=== PATIENT | male | born 1935 | race Hispanic/Latino ===

== ENCOUNTER 2018-09-13 20:25 | Emergency (ER) | payer SELFPAY ==
[2018-09-13 21:12] LABS: Protime INR 1.05
[2018-09-13 21:13] LABS: Absolute Lymphocytes (CBC) 1.5 K/uL (0.7-4.9); Hematocrit 41.5 % (39.6-49.0); Lymphocytes % 20.3 % (15.3-44.8); MPV 9.4 fL (7.6-11.3); RBC Red Blood Cell Count 4.65 M/uL (4.33-5.43)
[2018-09-13 21:28] LABS: ALT/SGPT 24 U/L (12-78); AST/SGOT 20 U/L (15-37); Albumin 3.8 g/dL (3.4-5.0); Alkaline Phosphatase 73 U/L (45-117); BUN Blood Urea Nitrogen 16 mg/dL (7-18); Bicarbonate 27 mmol/L (21-32); Bilirubin Direct 0.2 mg/dL (0-0.2); Bilirubin Total 0.6 mg/dL (0.2-1.0); Glucose Level 110 mg/dL (74-106); Magnesium 2.2 mg/dL (1.8-2.4); NT PRO-BNP 285 pg/mL (<450); Potassium 4.2 mmol/L (3.5-5.1); Protein, Total 7.5 g/dL (6.4-8.2); Sodium Level 142 mmol/L (136-145); Troponin (Emerg Dept Use Only) < 0.02 ng/mL (0.0-0.045)
[2018-09-13] MEDS ORDERED: HYDRALAZINE HCL 20 MG/ML VIAL ONE (22:16)
--- NOTE | 2018-09-13 22:52 | ER ---
Nurse's Notes [facility] Name: Moy White Age: 82 yrs Sex: Male : 1935 Arrival Date: 09/13/2018 Time: 20:25 Bed 4 Private MD: Diagnosis: Pneumonia due to other specified bacteria;Atrial fibrillation and flutter;Essential (primary) hypertension Presentation: 09/13 20:27 Presenting complaint: EMS states: called out for right lower back pain. EMS gave zofran tl2 and fentanyl, pt c/o chest pain after medication and presented with a flutter on monitor. Pt is AOx4. Transition of care: patient was not received from another setting of care. Onset of symptoms was September 13, 2018. Risk Assessment: Do you want to hurt yourself or someone else? Patient reports no desire to harm self or others. Initial Sepsis Screen: Does the patient meet any 2 criteria? No. Patient's initial sepsis screen is negative. Does the patient have a suspected source of infection? No. Patient's initial sepsis screen is negative. Care prior to arrival: Medication(s) given: zofran 4 mg, fentanyl IV initiated. 18 GA, in the right forearm. 20:27 Method Of Arrival: EMS: [facility] tl2 20:27 Acuity: MARIAN 3 tl2 Triage Assessment: 20:28 General: Appears in no apparent distress. uncomfortable, Behavior is calm, cooperative, tl2 appropriate for age. Pain: Complains of pain in chest, right lower back Pain does not radiate. Neuro: Level of Consciousness is awake, alert, obeys commands, Oriented to person, place, time, situation. Cardiovascular: Chest pain. Respiratory: Airway is patent Respiratory effort is even, unlabored, Respiratory pattern is regular, symmetrical. Musculoskeletal: Circulation, motion, and sensation intact. Reports pain in right lower back. Historical: - Allergies: 20:28 No Known Allergies; tl2 - Home Meds: 20:28 None [Active]; tl2 - PMHx: 20:28 None; tl2 - Immunization history:: Adult Immunizations up to date. - Social history:: Smoking status: Patient/guardian denies using tobacco. - Ebola Screening: : No symptoms or risks identified at this time. Screenin:30 Abuse screen: Denies threats or abuse. Nutritional screening: No deficits noted. tl2 Tuberculosis screening: No symptoms or risk factors identified. Fall Risk IV access (20 points). Assessment: 20:28 General: see triage assessment. tl2 21:22 Reassessment: Patient appears in no apparent distress at this time. Patient and/or tl2 family updated on plan of care and expected duration. Pain level reassessed. Patient is alert, oriented x 3, equal unlabored respirations, skin warm/dry/pink. 22:39 Reassessment: Patient appears in no apparent distress at this time. Patient and/or tl2 family updated on plan of care and expected duration. Pain level reassessed. Patient is alert, oriented x 3, equal unlabored respirations, skin warm/dry/pink. Vital Signs: 20:28 BP 181 / 103; Pulse 69; Resp 18; Temp 98.3(O); Pulse Ox 95% on R/A; Weight 77.11 kg; tl2 Height 5 ft. 6 in. (167.64 cm); Pain 5/10; 21:02 BP 182 / 99; Pulse 70; Resp 15; Pulse Ox 95% on R/A; tl2 22:39 BP 161 / 90; Pulse 77; Resp 23; Pulse Ox 95% on R/A; tl2 23:08 BP 150 / 81; Pulse 76; Resp 17; Temp 98; Pulse Ox 96% on R/A; rv 20:28 Body Mass Index 27.44 (77.11 kg, 167.64 cm) tl2 Vitals: 20:36 Cardiac Rhythm Assessment Sinus rhythm W/unifocal PVC's. tl2 21:02 Cardiac Rhythm Assessment Sinus rhythm W/unifocal PVC's. tl2 ED Course: 20:25 Patient arrived in ED. fc 20:27 Derek Suresh PA is PHCP. jr8 20:27 Abelardo Benavidez MD is Attending Physician. jr8 20:28 Triage completed. tl2 20:28 Arm band placed on right wrist. tl2 20:30 Patient has correct armband on for positive identification. Bed in low position. Call tl2 light in reach. Side rails up X 1. 20:30 Maintain EMS IV. Dressing intact. Good blood return noted. Site clean \T\ dry. Gauge \T\ tl 2 site: 18 g R FA. 20:45 XRAY Chest (1 view) In Process Unspecified. EDMS 21:02 Kemi Chavarria, RN is Primary Nurse. tl2 22:51 Sanjay Cotter MD is Referral Physician. jr8 22:51 Chester Dinh MD is Referral Physician. jr8 23:39 No provider procedures requiring assistance completed. IV discontinued, intact, rv bleeding controlled, No redness/swelling at site. Pressure dressing applied. Administered Medications: 22:25 Drug: hydrALAZINE 10 mg Route: IV; Rate: calculated rate; Site: right forearm; tl2 23:39 Follow up: Response: Blood pressure is lowered; IV Status: Completed infusion rv 23:08 Drug: fentaNYL (PF) 50 mcg Route: IVP; Site: right forearm; rv 23:39 Follow up: Response: Medication administered at discharge. rv Outcome: 22:51 Discharge ordered by . jr8 23:39 Discharged to home via wheelchair, with family. rv 23:39 Condition: improved 23:39 Discharge instructions given to patient, family, Instructed on discharge instructions, follow up and referral plans. 23:39 Instructed on medication usage, Demonstrated understanding of instructions, follow-up care, medications, Prescriptions given X 4. 23:40 Patient left the ED. rv Signatures: Dispatcher [employer] EDMD Autumn Lala RN RN Derek Howell PA PA jr8 Kemi Chavarria RN RN tl2 Rigoberto Tran RN RN rv Corrections: (The following items were deleted from the chart) 20:32 20:28 BP 181 / 103; Pulse 69bpm; Resp 18bpm; Pulse Ox 95% RA; 77.11 kg; Height 5 ft. 6 tl2 in.; BMI: 27.4; Pain 5/10; tl2
--- NOTE | 2018-09-13 22:52 | EDPHYS ---
Physician Documentation [facility] Name: Moy White Age: 82 yrs Sex: Male : 1935 Arrival Date: 09/13/2018 Time: 20:25 Bed 4 Private MD: ED Physician Abelardo Benavidez HPI: 09/13 21:30 This 82 yrs old Male presents to ER via EMS with complaints of Back Pain. jr8 21:30 The patient presents with pain that is acute, with no known mechanism of injury. The jr8 symptoms are located in the low back. Onset: The symptoms/episode began/occurred acutely, 2 day(s) ago. The pain does not radiate. Associated signs and symptoms: The patient has no apparent associated signs or symptoms. The problem was sustained from unknown cause. Modifying factors: The patient symptoms are alleviated by nothing, the patient symptoms are aggravated by any movement, bending. Severity of symptoms: At their worst the symptoms were moderate, in the emergency department the symptoms are unchanged. The patient has not experienced similar symptoms in the past. The patient has not recently seen a physician. Patient was brought in by EMS for low back pain. While during course of treatment and evaluation by EMS they noted that patient would have periodic atrial flutter. Patient also HTN. History of HTN but currently not medicated. Denies any other history. Patient only complains of right low back pain. Thinks he may have injured it but does not remember how . Historical: - Allergies: 20:28 No Known Allergies; tl2 - Home Meds: 20:28 None [Active]; tl2 - PMHx: 20:28 None; tl2 - Immunization history:: Adult Immunizations up to date. - Social history:: Smoking status: Patient/guardian denies using tobacco. - Ebola Screening: : No symptoms or risks identified at this time. ROS: 21:30 Eyes: Negative for injury, pain, redness, and discharge, ENT: Negative for injury, jr8 pain, and discharge, Neck: Negative for injury, pain, and swelling, Cardiovascular: Negative for chest pain, palpitations, and edema, Respiratory: Negative for shortness of breath, cough, wheezing, and pleuritic chest pain, Abdomen/GI: Negative for abdominal pain, nausea, vomiting, diarrhea, and constipation, MS/Extremity: Negative for injury and deformity, Skin: Negative for injury, rash, and discoloration, Neuro: Negative for headache, weakness, numbness, tingling, and seizure. 21:30 Back: Positive for pain at rest, pain with movement, of the right low back. Exam: 21:30 Eyes: Pupils equal round and reactive to light, extra-ocular motions intact. Lids and jr8 lashes normal. Conjunctiva and sclera are non-icteric and not injected. Cornea within normal limits. Periorbital areas with no swelling, redness, or edema. ENT: Nares patent. No nasal discharge, no septal abnormalities noted. Tympanic membranes are normal and external auditory canals are clear. Oropharynx with no redness, swelling, or masses, exudates, or evidence of obstruction, uvula midline. Mucous membranes moist. Neck: Trachea midline, no thyromegaly or masses palpated, and no cervical lymphadenopathy. Supple, full range of motion without nuchal rigidity, or vertebral point tenderness. No Meningismus. Cardiovascular: Regular rate and rhythm with a normal S1 and S2. No gallops, murmurs, or rubs. Normal PMI, no JVD. No pulse deficits. Respiratory: Lungs have equal breath sounds bilaterally, clear to auscultation and percussion. No rales, rhonchi or wheezes noted. No increased work of breathing, no retractions or nasal flaring. Abdomen/GI: Soft, non-tender, with normal bowel sounds. No distension or tympany. No guarding or rebound. No evidence of tenderness throughout. Skin: Warm, dry with normal turgor. Normal color with no rashes, no lesions, and no evidence of cellulitis. MS/ Extremity: Pulses equal, no cyanosis. Neurovascular intact. Full, normal range of motion. Neuro: Awake and alert, GCS 15, oriented to person, place, time, and situation. Cranial nerves II-XII grossly intact. Motor strength 5/5 in all extremities. Sensory grossly intact. Cerebellar exam normal. Normal gait. 21:30 Back: pain, that is moderate, of the right low back, ROM is painful, with all movement, normal spinal alignment noted, CVA tenderness, is absent, vertebral tenderness, is not appreciated. Vital Signs: 20:28 BP 181 / 103; Pulse 69; Resp 18; Temp 98.3(O); Pulse Ox 95% on R/A; Weight 77.11 kg; tl2 Height 5 ft. 6 in. (167.64 cm); Pain 5/10; 21:02 BP 182 / 99; Pulse 70; Resp 15; Pulse Ox 95% on R/A; tl2 22:39 BP 161 / 90; Pulse 77; Resp 23; Pulse Ox 95% on R/A; tl2 23:08 BP 150 / 81; Pulse 76; Resp 17; Temp 98; Pulse Ox 96% on R/A; rv 20:28 Body Mass Index 27.44 (77.11 kg, 167.64 cm) tl2 MDM: 20:27 Patient medically screened. jr8 22:36 Data reviewed: vital signs, nurses notes, lab test result(s), EKG, radiologic studies, jr8 plain films, and as a result, I will discharge patient. Data interpreted: Pulse oximetry: on room air is 95 %. Interpretation: normal. 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 ED course: No acute findings on labs. Mild infiltrate on CXR. Will treat for pneumonia. Recommended f/u CXR to insure resolving. If not needs CT to r/o mass from smoking history. Will start patient on aspirin, metoprolol for episodic atrial flutter. Recommend f/u with both FM and Cardiology. If worse to come back. Will also treat back pain that he originally came in for . 22:48 Test interpretation: by ED physician or midlevel provider: plain radiologic studies, jr8 Right lower lobe infiltrate noted on CXR. 09/13 20:26 Order name: Basic Metabolic Panel; Complete Time: 21:32 09/13 20:26 Order name: CBC with Diff; Complete Time: 21:18 09/13 20:26 Order name: LFT's; Complete Time: 21:32 09/13 20:26 Order name: Magnesium; Complete Time: 21:32 09/13 20:26 Order name: NT PRO-BNP; Complete Time: 21:32 09/13 20:26 Order name: PT-INR; Complete Time: 21:18 09/13 20:26 Order name: Troponin (emerg Dept Use Only); Complete Time: 21:32 09/13 20:26 Order name: XRAY Chest (1 view) 09/13 20:26 Order name: EKG; Complete Time: 20:27 09/13 20:26 Order name: Cardiac monitoring; Complete Time: 20:32 09/13 20:26 Order name: EKG - Nurse/Tech; Complete Time: 20:32 09/13 20:26 Order name: IV Saline Lock; Complete Time: 20:32 09/13 20:26 Order name: Labs collected and sent; Complete Time: 20:41 09/13 20:26 Order name: O2 Per Protocol; Complete Time: 20:32 09/13 20:26 Order name: O2 Sat Monitoring; Complete Time: 20:32 Administered Medications: 22:25 Drug: hydrALAZINE 10 mg Route: IV; Rate: calculated rate; Site: right forearm; tl2 23:39 Follow up: Response: Blood pressure is lowered; IV Status: Completed infusion rv 23:08 Drug: fentaNYL (PF) 50 mcg Route: IVP; Site: right forearm; rv 23:39 Follow up: Response: Medication administered at discharge. rv Disposition: 09/13/18 22:51 Discharged to Home. Impression: Pneumonia due to other specified bacteria, Atrial fibrillation and flutter, Essential (primary) hypertension. - Condition is Stable. - Discharge Instructions: Atrial Fibrillation, Hypertension, Community-Acquired Pneumonia, Adult. - Prescriptions for Mobic 7.5 mg Oral Tablet - take 1 tablet by ORAL route once daily take with food; 20 tablet. Robaxin 500 mg Oral Tablet - take 2 tablet by ORAL route every 6 hours As needed; 40 tablet. Metoprolol Tartrate 25 mg Oral Tablet - take 1 tablet by ORAL route 2 times per day with a meal; 20 tablet. Zithromax Z- Xiang 250 mg Oral Tablet - take 1 tablet by ORAL route as directed for 5 days Day 1 - take two (2) tablets one time. Day 2, 3, 4 , 5 take one (1) tablet once daily.; 6 tablet. - Medication Reconciliation Form, Thank You Letter, Antibiotic Education, Prescription Opioid Use form. - Follow up: Sanjay Cotter MD; When: 1 - 2 days; Reason: Recheck today's complaints, Continuance of care, Re-evaluation by your physician. Follow up: Chester Dinh MD; When: 1 - 2 days; Reason: Recheck today's complaints, Continuance of care, Re-evaluation by your physician. - Problem is new. - Symptoms have improved. - Notes: Daily aspirin 81 mg Addendum: 09/15/2018 09:23 Co-signature as Attending Physician, Abelardo Benavidez MD I agree with the assessment and c tony plan of care. Signatures: Dispatcher [employer] EDUT Abelardo Benavidez MD MD cha Chretien, Felicia, RN RN fc Derek Suresh PA PA jr8 Kemi Chavarria RN RN tl2 Rigoberto Tran RN RN rv Corrections: (The following items were deleted from the chart) 09/13 22:49 22:36 ED course: No acute findings on labs or imaging. Will start patient on aspirin, jr8 metoprolol for episodic atrial flutter. Recommend f/u with both FM and Cardiology. If worse to come back. Will also treat back pain that he originally came in for . jr8 23:40 22:51 09/13/2018 22:51 Discharged to Home. Impression: Pneumonia due to other specified rv bacteria; Atrial fibrillation and flutter; Essential (primary) hypertension. Condition is Stable. Forms are Medication Reconciliation Form, Thank You Letter, Antibiotic Education, Prescription Opioid Use. Follow up: Sanjay Cotter; When: 1 - 2 days; Reason: Recheck today's complaints, Continuance of care, Re-evaluation by your physician. Follow up: Chester Dinh; When: 1 - 2 days; Reason: Recheck today's complaints, Continuance of care, Re-evaluation by your physician. Problem is new. Symptoms have improved. jr8
[2018-09-13] MEDS ORDERED: FENTANYL CITR 100 MCG/2 ML ONE (22:58)
--- NOTE | 2018-09-14 12:41 | RAD REPORT ---
EXAM DESCRIPTION: RAD - Chest Single View - 09/13/2018 8:49 pm CLINICAL HISTORY: Chest pain COMPARISON: None. TECHNIQUE: AP portable chest image was obtained 3 hours . FINDINGS: Lung volumes are low. Right base opacification is present partially obscuring the right he midiaphragm. Pneumonia and atelectasis can have this appearance. Correlation is needed with any right base pneumonia findings. Stranding in the medial left lung base is more likely atelectasis than pneu monia. No failure or volume overload. Heart and vasculature are normal. No pneumothorax. A minimal right ple ural effusion could be masked. No acute bony abnormality seen. No acute aortic findings suspected. IMPRESSION: Shallow inspiration film showing pneumonia or possible atelectasis change to the right l tiffanie base. Medial left base stranding is favored to be atelectasis rather than early pneumonia.
--- NOTE | 2018-09-15 07:46 | EKG ---
Test Date: 2018-09-13 Test Time: 20:22:24 Brake Lining Finisher: HUSSAIN MEASUREMENT RESULTS: Intervals: Rate: 82 CA: 168 QRSD: 84 QT: 376 QTc: 439 [place]: P: 47 CA: 168 QRS: 5 T: 28 INTERPRETIVE STATEMENTS: Sinus rhythm with occasional premature ventricular complexes Otherwise normal ECG No previous ECG available for comparison Electronically Signed On 09-15-18 07:45:08 CDT by Sanjay Cotter
== END 2018-09-13 23:40 | disposition home or self-care (01) ==
LOC: ER 20:25
DX: J15.8 Pneumonia due to other specified bacteria (principal); I10 Essential (primary) hypertension; I48.91 Unspecified atrial fibrillation; I48.92 Unspecified atrial flutter
CPT/HCPCS: 36415; 71045; 80048; 80076; 83735; 83880; 84484; 85025; 85610; 93005; 96365; 96375; 99284; J0360; J3010

== ENCOUNTER 2019-01-25 14:54 | Inpatient (IN) | payer OTHER, SELFPAY ==
--- OUTSIDE RECORDS SUMMARY | 2019-01-25 14:57 | XMS REPORT ---
:1935 [facility] Address [address] [place] [address] Dr. Crocker [address] [place] [id number] Care Team Providers Name Role Phone Unavailable Unavailable Unavailable Problems This patient has no known problems. Allergies, Adverse Reactions, Alerts This patient has no known allergies or adverse reactions. Medications This patient has no known medications.
--- NOTE | 2019-01-25 16:00 | RAD REPORT ---
EXAM DESCRIPTION: CT - Head Brain Wo Cont - 01/25/2019 3:28 pm CLINICAL HISTORY: Hypertension, dizziness COMPARISON: None. TECHNIQUE: Axial 5 mm thick images of the head were obtained without IV contrast. All CT scans are performed using dose optimization technique as appropriate and may include automated exposure control or mA/KV adjustment according to patient size. FINDINGS: No intracranial hemorrhage, mass, edema or shift of mid-line structures. No definitive inf arction changes are present. There is some heterogeneity in the medial aspect of the right occipital lobe. This is not definitive for infarction but can be correlated with any visual field defects on ph ysical exam. Patient has underlying mild to moderate atrophy and chronic ischemic change. No abnormal extra-axial fluid collections. Ventricles are in proportion to volume loss. Mastoid air cells and visualized portions of the paranasal sinuses are clear. No acute bony findings. IMPRESSION: No intracranial hemorrhage, mass or edema. Hypodensity in the medial right occipital lobe is not definitive for infarction but can be correlated with any visual field defect on physical exam. Underlying atrophy and chronic ischemic change. Ventricles are in proportion. Follow-up MR imaging could be performed if there are additional findings suggesting acute ischemic ev ent.
[2019-01-25 16:01] LABS: Absolute Lymphocytes (CBC) 1.2 K/uL (0.7-4.9); Basophils % 0.8 % (0-1.3); Hematocrit 35.2 % (39.6-49.0); Lymphocytes % 14.9 % (15.3-44.8); MPV 8.2 fL (7.6-11.3); Protime INR 1.06; RBC Red Blood Cell Count 4.11 M/uL (4.33-5.43)
[2019-01-25 16:16] LABS: ALT/SGPT 27 U/L (12-78); AST/SGOT 35 U/L (15-37); Albumin 3.7 g/dL (3.4-5.0); Alkaline Phosphatase 81 U/L (45-117); BUN Blood Urea Nitrogen 21 mg/dL (7-18); Bicarbonate 27 mmol/L (21-32); Bilirubin Direct 0.1 mg/dL (0-0.2); Bilirubin Total 0.4 mg/dL (0.2-1.0); Glucose Level 110 mg/dL (74-106); Magnesium 2.3 mg/dL (1.8-2.4); NT PRO-BNP 205 pg/mL (<450); Potassium 3.8 mmol/L (3.5-5.1); Protein, Total 7.4 g/dL (6.4-8.2); Sodium Level 142 mmol/L (136-145); Troponin (Emerg Dept Use Only) < 0.02 ng/mL (0.0-0.045)
--- NOTE | 2019-01-25 16:22 | EDPHYS ---
Physician Documentation [facility] Name: Moy White Age: 83 yrs Sex: Male : 1935 Arrival Date: 01/25/2019 Time: 14:57 Bed 5 Private MD: ED Physician Abelardo Benavidez HPI: 01/25 16:00 This 83 yrs old Male presents to ER via Ambulatory with complaints of jr8 Dizziness, Blurred Vision. 16:00 The patient presents with dizziness, feeling off balance. Onset: The symptoms/episode jr8 began/occurred acutely, today. Context: occurred at home. Modifying factors: The symptoms are alleviated by nothing, the symptoms are aggravated by standing up. Associated signs and symptoms: Pertinent positives: blurred vision. Severity of symptoms: At their worst the symptoms were moderate in the emergency department the symptoms have improved moderately. Patient's baseline: Neuro: alert and fully oriented, Motor: no deficits, Ambulation: walks without assistance, Speech: normal. The patient has experienced a previous episode. The patient has not recently seen a physician. Historical: - Allergies: 15:10 No Known Allergies; jl7 - Home Meds: 15:28 aspirin 81 mg Oral chew once daily [Active]; clonidine HCl 0.1 mg Oral tab as needed aa5 for systolic BP >180 [Active]; triamterene-hydrochlorothiazid 37.5-25 mg Oral tab once daily [Active]; amlodipine 10 mg tab once daily [Active]; - PMHx: 15:10 Hypertension; jl7 - Immunization history:: Adult Immunizations unknown. - Social history:: Smoking status: Patient/guardian denies using tobacco. - Ebola Screening: : No symptoms or risks identified at this time. ROS: 16:00 Eyes: Negative for injury, pain, redness, and discharge, ENT: Negative for injury, jr8 pain, and discharge, Neck: Negative for injury, pain, and swelling, Cardiovascular: Negative for chest pain, palpitations, and edema, Respiratory: Negative for shortness of breath, cough, wheezing, and pleuritic chest pain, Abdomen/GI: Negative for abdominal pain, nausea, vomiting, diarrhea, and constipation, Back: Negative for injury and pain, MS/Extremity: Negative for injury and deformity, Skin: Negative for injury, rash, and discoloration. 16:00 Neuro: Positive for dizziness, visual changes. Exam: 16:00 Eyes: Pupils equal round and reactive to light, extra-ocular motions intact. Lids and jr8 lashes normal. Conjunctiva and sclera are non-icteric and not injected. Cornea within normal limits. Periorbital areas with no swelling, redness, or edema. ENT: Nares patent. No nasal discharge, no septal abnormalities noted. Tympanic membranes are normal and external auditory canals are clear. Oropharynx with no redness, swelling, or masses, exudates, or evidence of obstruction, uvula midline. Mucous membranes moist. Neck: Trachea midline, no thyromegaly or masses palpated, and no cervical lymphadenopathy. Supple, full range of motion without nuchal rigidity, or vertebral point tenderness. No Meningismus. Cardiovascular: Regular rate and rhythm with a normal S1 and S2. No gallops, murmurs, or rubs. Normal PMI, no JVD. No pulse deficits. Respiratory: Lungs have equal breath sounds bilaterally, clear to auscultation and percussion. No rales, rhonchi or wheezes noted. No increased work of breathing, no retractions or nasal flaring. Abdomen/GI: Soft, non-tender, with normal bowel sounds. No distension or tympany. No guarding or rebound. No evidence of tenderness throughout. Back: No spinal tenderness. No costovertebral tenderness. Full range of motion. Skin: Warm, dry with normal turgor. Normal color with no rashes, no lesions, and no evidence of cellulitis. MS/ Extremity: Pulses equal, no cyanosis. Neurovascular intact. Full, normal range of motion. Neuro: Awake and alert, GCS 15, oriented to person, place, time, and situation. Cranial nerves II-XII grossly intact. Motor strength 5/5 in all extremities. Sensory grossly intact. Cerebellar exam normal. Normal gait. Vital Signs: 15:10 BP 131 / 70; Pulse 58; Resp 19 S; Temp 98.2(O); Pulse Ox 97% on R/A; Weight 65.77 kg jl7 (R); Pain 2/10; 15:50 BP 136 / 75; Pulse 59; Resp 16 S; Pulse Ox 98% on R/A; aa5 16:15 BP 135 / 75; Pulse 56; Resp 16 S; Pulse Ox 98% on R/A; aa5 17:30 BP 153 / 75; Pulse 74; Resp 18 S; Temp 98.0(TE); Pulse Ox 97% on R/A; aa5 18:45 BP 136 / 71; Pulse 65; Resp 16 S; Pulse Ox 96% on R/A; aa5 19:42 BP 136 / 71; Pulse 62; Resp 17; Temp 97.7(TE); Pulse Ox 98% on R/A; ea NIH Stroke Scale Scores: 15:20 NIHSS Score: 0 aa5 16:00 NIHSS Score: 0 [facility] MDM: 15:13 Patient medically screened. [facility] 16:16 Data reviewed: vital signs, nurses notes, lab test result(s), EKG, radiologic studies, jr8 CT scan, plain films. Data interpreted: Pulse oximetry: on room air is 97 %. Interpretation: normal. Counseling: I had a detailed discussion with the patient and/or guardian regarding: the historical points, exam findings, and any diagnostic results supporting the discharge/admit diagnosis, lab results, radiology results, the need for further work-up and treatment in the hospital. 16:16 ED course: Spoke with Dr. Frankel. Will be happy to see patient in the AM and have MRI jr8 done tomorrow to further evaluate nondescript right occipital lesion . 01/25 15:13 Order name: Basic Metabolic Panel; Complete Time: 16:17 8 01/25 15:13 Order name: CBC with Diff; Complete Time: 16:17 8 01/25 15:13 Order name: LFT's; Complete Time: 16:17 8 01/25 15:13 Order name: Magnesium; Complete Time: 16:17 jr8 01/25 15:13 Order name: NT PRO-BNP; Complete Time: 16:17 8 01/25 15:13 Order name: PT-INR; Complete Time: 16:16 jr8 01/25 15:13 Order name: Troponin (emerg Dept Use Only); Complete Time: 16:17 jr8 01/25 15:13 Order name: XRAY Chest (1 view); Complete Time: 16:35 8 01/25 15:35 Order name: Glucose, Ancillary Testing; Complete Time: 16:00 EDMS 01/25 16:57 Order name: Lipid Profile EDMA 01/25 16:57 Order name: Lipid Profile EDMA 01/25 16:59 Order name: Basic Metabolic Panel EDMA 01/25 18:03 Order name: Urine Dipstick--Ancillary (enter results) em1 01/25 20:11 Order name: Urine Dipstick-Ancillary; Complete Time: 20:14 EDMA 01/25 15:13 Order name: EKG; Complete Time: 15:15 [facility] 01/25 15:13 Order name: Cardiac monitoring; Complete Time: 16:02 [facility] 01/25 15:13 Order name: EKG - Nurse/Tech; Complete Time: 16:02 [facility] 01/25 15:13 Order name: IV Saline Lock; Complete Time: 16:02 [facility] 01/25 15:13 Order name: Labs collected and sent; Complete Time: 16:02 [facility] 01/25 15:13 Order name: O2 Per Protocol; Complete Time: 16:02 [facility] 01/25 15:13 Order name: O2 Sat Monitoring; Complete Time: 16:02 [facility] 01/25 15:13 Order name: CT Head Brain wo Cont; Complete Time: 16:07 [facility] 01/25 16:36 Order name: Diet Heart Healthy; Complete Time: 16:36 iw 01/25 16:57 Order name: Echo with Doppler EDMA 01/25 16:58 Order name: Carotid Artery Bilateral EDMA 01/25 16:58 Order name: Brain With Cont EDMA 01/25 17:05 Order name: Urine Dipstick-Ancillary (obtain specimen); Complete Time: 17:47 [facility] 01/25 17:36 Order name: Swallow Screen: VO received at 1625; Complete Time: 17:36 aa5 Administered Medications: 16:26 Drug: Aspirin 81 mg Route: PO; aa5 17:30 Follow up: Response: No adverse reaction aa5 16:26 Drug: PlaVIX 75 mg Route: PO; aa5 17:30 Follow up: Response: No adverse reaction aa5 16:26 Drug: foLIC Acid 1 mg Route: IVPB; Site: left antecubital; aa5 16:30 Follow up: Response: No adverse reaction aa5 19:45 Follow up: Response: No adverse reaction; IV Status: Completed infusion ea Point of Care Testing: Blood Glucose: 15:25 Blood Glucose: 111 mg/dL; aa5 Ranges: Critical Glucose Levels:Adult <50 mg/dl or >400 mg/dl <40 mg/dl or >180 mg/dl Disposition: 01/26 10:32 Co-signature as Attending Physician, Abelardo Benavidez MD I agree with the assessment and xiang plan of care. Disposition: 01/25/19 16:21 Hospitalization ordered by David Patle for Observation. Preliminary diagnosis are Visual disturbances, Dizziness , Transient cerebral ischemic attack, unspecified. - Bed requested for Telemetry/MedSurg (observation). - Status is Observation. ea - Condition is Stable. - Problem is new. - Symptoms have improved. UTI on Admission? No NIH Stroke Scale - NIH Stroke Score Date: 01/25/2019 Time: 15:20 Total Score = 0 1a. Level of Consciousness (LOC) - 0(Alert) 1b. Level of Consciousness (LOC) (Year \T\ Age) - 0(Both) 1c. LOC Commands (Open \T\ Closes Eyes/Producer Arborist Manager) - 0(Both) 2. Best Gaze (Lateral Gaze Paresis) - 0(Normal) 3. Visual Field Loss - 0(No visual loss) 4. Facial Palsy - 0(Normal) 5a. Left Arm: Motor (10-second hold) - 0(No drift) 5b. Right Arm: Motor (10-second hold) - 0(No drift) 6a. Left Leg: Motor (5-second hold - always test supine) - 0(No drift) 6b. Right Leg: Motor (5-second hold - always test supine) - 0(No drift) 7. Limb Ataxia (finger/nose \T\ heel/paredes - test with eyes open) - 0(Absent) 8. Sensory Loss (pinprick arms/legs/face) - 0(Normal) 9. Best Language: Aphasia (description/naming/reading) - 0(No aphasia) 10. Dysarthria (speech clarity - read or repeat words) - 0(Normal) 11. Extinction and Inattention (visual/tactile/auditory/spatial/personal) - 0(No abnormality) Initials: aa5 NIH Stroke Scale - NIH Stroke Score Date: 01/25/2019 Time: 16:00 Total Score = 0 1a. Level of Consciousness (LOC) - 0(Alert) 1b. Level of Consciousness (LOC) (Year \T\ Age) - 0(Both) 1c. LOC Commands (Open \T\ Closes Eyes/Producer Arborist Manager) - 0(Both) 2. Best Gaze (Lateral Gaze Paresis) - 0(Normal) 3. Visual Field Loss - 0(No visual loss) 4. Facial Palsy - 0(Normal) 5a. Left Arm: Motor (10-second hold) - 0(No drift) 5b. Right Arm: Motor (10-second hold) - 0(No drift) 6a. Left Leg: Motor (5-second hold - always test supine) - 0(No drift) 6b. Right Leg: Motor (5-second hold - always test supine) - 0(No drift) 7. Limb Ataxia (finger/nose \T\ heel/paredes - test with eyes open) - 0(Absent) 8. Sensory Loss (pinprick arms/legs/face) - 0(Normal) 9. Best Language: Aphasia (description/naming/reading) - 0(No aphasia) 10. Dysarthria (speech clarity - read or repeat words) - 0(Normal) 11. Extinction and Inattention (visual/tactile/auditory/spatial/personal) - 0(No abnormality) Initials: jrFrantz Signatures: Dispatcher [employer] EDSharda Sheldon RN RN dw Anderson, Corey, MD MD cha Calderon, Audri RN RN aa5 Derek Suresh PA PA jr8 Von Etsrella RN RN jl7 Antunez, Elena, RN RN ea Corrections: (The following items were deleted from the chart) 01/25 15:28 15:10 Home Meds: uknown HRN medication; vargas7 aa5 18:51 16:21 Hospitalization Ordered by David Patel MD for Observation. dw Preliminary diagnosis is Visual disturbances; Dizziness ; Transient cerebral ischemic attack, unspecified. Bed requested for Telemetry/MedSurg (observation). Status is Observation. Condition is Stable. Problem is new. Symptoms have improved. UTI on Admission? No. jr8 20:33 18:51 01/25/2019 16:21 Hospitalization Ordered by David Patel MD for ea Observation. Preliminary diagnosis is Visual disturbances; Dizziness ; Transient cerebral ischemic attack, unspecified. Bed requested for Telemetry/MedSurg (observation). Status is Observation. Condition is Stable. Problem is new. Symptoms have improved. UTI on Admission? No. dw
--- NOTE | 2019-01-25 16:22 | ER ---
Nurse's Notes [facility] Name: Moy White Age: 83 yrs Sex: Male : 1935 Arrival Date: 01/25/2019 Time: 14:57 Bed 5 Private MD: Diagnosis: Visual disturbances;Dizziness ;Transient cerebral ischemic attack, unspecified Presentation: 01/25 15:08 Presenting complaint: Child states: He's been having high blood pressure for a couple jl7 months, this morning he woke at 0800 and was dizzy and c/o blurred vision. Transition of care: patient was not received from another setting of care. Onset of symptoms was January 25, 2019 at 08:00. Risk Assessment: Do you want to hurt yourself or someone else? Patient reports no desire to harm self or others. Initial Sepsis Screen: Does the patient meet any 2 criteria? No. Patient's initial sepsis screen is negative. Does the patient have a suspected source of infection? No. Patient's initial sepsis screen is negative. Care prior to arrival: None. 15:08 Method Of Arrival: Ambulatory jl7 15:08 Acuity: MARIAN 3 jl7 Triage Assessment: 15:10 General: Appears in no apparent distress. uncomfortable, Behavior is calm, cooperative, jl7 appropriate for age. Pain: Pain: Complains of pain in pressure behind both eyes Pain currently is 2 out of 10 on a pain scale. Quality of pain is described as pressure. Historical: - Allergies: 15:10 No Known Allergies; jl7 - Home Meds: 15:28 aspirin 81 mg Oral chew once daily [Active]; clonidine HCl 0.1 mg Oral tab as needed aa5 for systolic BP >180 [Active]; triamterene-hydrochlorothiazid 37.5-25 mg Oral tab once daily [Active]; amlodipine 10 mg tab once daily [Active]; - PMHx: 15:10 Hypertension; jl7 - Immunization history:: Adult Immunizations unknown. - Social history:: Smoking status: Patient/guardian denies using tobacco. - Ebola Screening: : No symptoms or risks identified at this time. Screenin:50 Abuse screen: Denies threats or abuse. Nutritional screening: No deficits noted. aa5 Tuberculosis screening: No symptoms or risk factors identified. Fall Risk Fall in past 12 months (25 points). IV access (20 points). Total Rae Fall Scale indicates High Risk Score (45 or more points). Fall prevention measures have been instituted. Side Rails Up X 2 Placed Close to Nursing Station. 16:25 Patient has been NPO before screening. The patient is alert, able to follow commands. aa5 The patient does not exhibit slurred or garbled speech The patient is not exhibiting difficulty speaking. The patient does not exhibit difficulty understanding words. The patient is able to swallow own secretions with no drooling or need for suction. Patient tolerated one teaspoon of water. No drooling, immediate coughing, gurgling, or clearing of the throat was noted. The patient tolerated 90mL of water. No drooling, immediate coughing, gurgling, or clearing of the throat was noted. The patient passed the bedside swallow screening. Oral medications may be given as ordered. Contact Physician for further diet orders. Provider notified of bedside swallow screening results: Derek MILAN. Assessment: 15:20 General: Appears comfortable, Behavior is calm, cooperative. Pain: Denies pain. Neuro: aa5 Level of Consciousness is awake, alert, obeys commands, Oriented to person, place, time, situation, Restorative Rehab Aide are equal bilaterally Moves all extremities. Speech is normal, Facial symmetry appears normal, Pupils are PERRLA, Reports blurred vision since this morning Episode of dizziness this morning. Pt states "I almost fell this morning because all of a sudden I felt dizzy". Negative for fall. . Cardiovascular: Heart tones S1 S2 present Rhythm is regular. Respiratory: Airway is patent Respiratory effort is even, unlabored, Respiratory pattern is regular, symmetrical. GI: Abdomen is round Bowel sounds present X 4 quads. Abd is soft and non tender X 4 quads. : No signs and/or symptoms were reported regarding the genitourinary system. EENT: No signs and/or symptoms were reported regarding the EENT system. Derm: Skin is dry, Skin is normal, Skin temperature is warm. Musculoskeletal: Range of motion: intact in all extremities. 15:26 Reassessment: Pt taken to CT via wheelchair . aa5 16:25 Reassessment: Patient is alert, oriented x 3, equal unlabored respirations, skin aa5 warm/dry/pink. Patient denies pain at this time. Awaiting room assignment. . 17:30 Reassessment: Patient is alert, oriented x 3, equal unlabored respirations, skin aa5 warm/dry/pink. Pt sitting up in bed eating, pt tolerating well. . 18:45 Reassessment: Patient is alert, oriented x 3, equal unlabored respirations, skin aa5 warm/dry/pink. Awaiting room assignment. . 19:46 General: Appears in no apparent distress. Behavior is calm, cooperative. Pain: Denies ea pain. Neuro: Level of Consciousness is awake, alert, obeys commands, Oriented to person, place, time, situation, Restorative Rehab Aide are equal bilaterally Moves all extremities. Speech is normal, Facial symmetry appears normal. Cardiovascular: Patient's skin is warm and dry. Respiratory: Airway is patent Respiratory effort is even, unlabored, Respiratory pattern is regular, symmetrical. Derm: Skin is dry, Skin is normal, Skin temperature is warm. Musculoskeletal: Circulation, motion, and sensation intact. 20:01 Reassessment: Report given to receiving nurse on fourth floor . ea 20:30 Reassessment: Patient is alert, oriented x 3, equal unlabored respirations, skin ea warm/dry/pink. Pt admitted to fourth floor, pt left ED via stretcher per tech, pt accompanied by family. Pt tolerating well. Vital Signs: 15:10 BP 131 / 70; Pulse 58; Resp 19 S; Temp 98.2(O); Pulse Ox 97% on R/A; Weight 65.77 kg jl7 (R); Pain 2/10; 15:50 BP 136 / 75; Pulse 59; Resp 16 S; Pulse Ox 98% on R/A; aa5 16:15 BP 135 / 75; Pulse 56; Resp 16 S; Pulse Ox 98% on R/A; aa5 17:30 BP 153 / 75; Pulse 74; Resp 18 S; Temp 98.0(TE); Pulse Ox 97% on R/A; aa5 18:45 BP 136 / 71; Pulse 65; Resp 16 S; Pulse Ox 96% on R/A; aa5 19:42 BP 136 / 71; Pulse 62; Resp 17; Temp 97.7(TE); Pulse Ox 98% on R/A; ea NIH Stroke Scale Scores: 15:20 NIHSS Score: 0 aa5 16:00 NIHSS Score: 0 jr8 ED Course: 14:57 Patient arrived in ED. as 15:09 Triage completed. jl7 15:10 Arm band placed on right wrist. jl7 15:12 Derek Suresh PA is PHCP. jr8 15:13 Abelardo Benavidez MD is Attending Physician. jr8 15:17 Aleah Vu, ROBERT is Primary Nurse. aa5 15:20 Patient has correct armband on for positive identification. Placed in gown. Bed in low aa5 position. Call light in reach. Side rails up X2. Adult w/ patient. 15:28 CT Head Brain wo Cont In Process Unspecified. EDMS 15:41 manager monitoring on. Pulse ox on. NIBP on. jp3 15:45 Warm blanket given. Pillow given. Diet tray ordered. Diet tray given. Verbal jp3 reassurance given. 15:45 Missed attempt(s): 20 gauge in left antecubital area. Bleeding controlled, band aid jp3 applied, catheter tip intact. 15:50 Initial lab(s) drawn, by me, sent to lab. EKG done, X-ray(s) taken. Inserted saline jp3 lock: 22 gauge in left wrist, using aseptic technique. Blood collected. Patient maintains SpO2 saturation greater than 95% on room air. 15:50 X-ray(s) taken. jp3 15:56 XRAY Chest (1 view) In Process Unspecified. EDMS 16:20 David Patel MD is Hospitalizing Provider. jr8 17:30 Diet: Patient given a heart healthy meal tray. aa5 17:38 No provider procedures requiring assistance completed. aa5 17:45 Urine collected: clean catch specimen, clear, stewart colored. jp3 19:00 Report given to ROBERT Dalal. aa5 19:43 Patient admitted, IV remains in place. ea Administered Medications: 16:26 Drug: Aspirin 81 mg Route: PO; aa5 17:30 Follow up: Response: No adverse reaction aa5 16:26 Drug: PlaVIX 75 mg Route: PO; aa5 17:30 Follow up: Response: No adverse reaction aa5 16:26 Drug: foLIC Acid 1 mg Route: IVPB; Site: left antecubital; aa5 16:30 Follow up: Response: No adverse reaction aa5 19:45 Follow up: Response: No adverse reaction; IV Status: Completed infusion ea Point of Care Testing: Blood Glucose: 15:25 Blood Glucose: 111 mg/dL; aa5 Ranges: Outcome: 16:21 Decision to Hospitalize by Provider. jr8 19:43 Instructed on the need for admit, Demonstrated understanding of instructions. ea 20:02 Admitted to Med/surg accompanied by tech, room 410, on monitor, Report called to ea receiving nurse on fourth floor 20:02 Condition: stable 20:33 Patient left the ED. ea NIH Stroke Scale - NIH Stroke Score Date: 01/25/2019 Time: 15:20 Total Score = 0 1a. Level of Consciousness (LOC) - 0(Alert) 1b. Level of Consciousness (LOC) (Year \\T\\ Age) - 0(Both) 1c. LOC Commands (Open \\T\\ Closes Eyes/Recycling Specialist) - 0(Both) 2. Best Gaze (Lateral Gaze Paresis) - 0(Normal) 3. Visual Field Loss - 0(No visual loss) 4. Facial Palsy - 0(Normal) 5a. Left Arm: Motor (10-second hold) - 0(No drift) 5b. Right Arm: Motor (10-second hold) - 0(No drift) 6a. Left Leg: Motor (5-second hold - always test supine) - 0(No drift) 6b. Right Leg: Motor (5-second hold - always test supine) - 0(No drift) 7. Limb Ataxia (finger/nose \\T\\ heel/paredes - test with eyes open) - 0(Absent) 8. Sensory Loss (pinprick arms/legs/face) - 0(Normal) 9. Best Language: Aphasia (description/naming/reading) - 0(No aphasia) 10. Dysarthria (speech clarity - read or repeat words) - 0(Normal) 11. Extinction and Inattention (visual/tactile/auditory/spatial/personal) - 0(No abnormality) Initials: aa5 NIH Stroke Scale - NIH Stroke Score Date: 01/25/2019 Time: 16:00 Total Score = 0 1a. Level of Consciousness (LOC) - 0(Alert) 1b. Level of Consciousness (LOC) (Year \\T\\ Age) - 0(Both) 1c. LOC Commands (Open \\T\\ Closes Eyes/Recycling Specialist) - 0(Both) 2. Best Gaze (Lateral Gaze Paresis) - 0(Normal) 3. Visual Field Loss - 0(No visual loss) 4. Facial Palsy - 0(Normal) 5a. Left Arm: Motor (10-second hold) - 0(No drift) 5b. Right Arm: Motor (10-second hold) - 0(No drift) 6a. Left Leg: Motor (5-second hold - always test supine) - 0(No drift) 6b. Right Leg: Motor (5-second hold - always test supine) - 0(No drift) 7. Limb Ataxia (finger/nose \\T\\ heel/paredes - test with eyes open) - 0(Absent) 8. Sensory Loss (pinprick arms/legs/face) - 0(Normal) 9. Best Language: Aphasia (description/naming/reading) - 0(No aphasia) 10. Dysarthria (speech clarity - read or repeat words) - 0(Normal) 11. Extinction and Inattention (visual/tactile/auditory/spatial/personal) - 0(No abnormality) Initials: jrFrantz Signatures: Dispatcher [employer] EDMS Adri Morgan Audri, RN RN aa5 Derek Suresh PA PA jr8 Von Estrella RN RN jl7 Katlin Swanson RN RN Isauro Gutierrez jp3 Corrections: (The following items were deleted from the chart) 15:28 15:10 Home Meds: uknown HRN medication; 7 aa5 17:39 16:25 Reassessment: Patient is alert, oriented x 3, equal unlabored aa5 respirations, skin warm/dry/pink. Patient denies pain at this time. aa5 17:47 17:46 Warm blanket given. Pillow given. Diet tray ordered. Diet tray given. jp3 Verbal reassurance given. jp3 19:15 17:47 Diet: Patient given a heart healthy meal tray. jp3 aa5
--- NOTE | 2019-01-25 16:22 | RAD REPORT ---
EXAM DESCRIPTION: RAD - Chest Single View - 01/25/2019 3:56 pm CLINICAL HISTORY: Hypertension, chest pain COMPARISON: September 13 TECHNIQUE: AP portable chest image was obtained 1549 hours . FINDINGS: No peripheral mass or consolidation. Minimal stranding at the right base and right costoph renic angle blunting matches comparison. Trachea is midline. Heart and vasculature are normal. No pne umothorax or large pleural effusion. No acute bony abnormality seen. No acute aortic findings suspect ed. IMPRESSION: No acute cardiopulmonary process. Above detailed chest findings are not significantly different from September 13.
[2019-01-25] MEDS ORDERED: ASPIRIN 81 MG CHEWABLE TABLET ONE (16:27)
[2019-01-25] MEDS ORDERED: FOLIC ACID 5 MG/ML VIAL ONE (16:28)
[2019-01-25] MEDS ORDERED: CLOPIDOGREL 75 MG TABLET ONE (16:28)
--- NOTE | 2019-01-25 16:47 | P.HP ---
Certification for Inpatient With expected LOS: <2 Midnights Patient will require the following post-hospital care: None Practitioner: I am a practitioner with admitting privileges, knowledge of patient current condition, hospital course, and medical plan of care. 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 compliant with medication denies any weakness of extremities no problems swallowing - Past Medical/Surgical History -: Hypertension Review of Systems 10-point ROS is otherwise unremarkable Physical Examination - Vital Signs Temperature: 98.2 F Blood Pressure: 131/70 Pulse: 58 Respirations: 19 Pulse Ox (%): 97 - Physical Exam General: Alert, Oriented x3 HEENT: Atraumatic Neck: Supple Respiratory: Clear to auscultation bilaterally Cardiovascular: No edema, Regular rate/rhythm, Normal S1 S2 Gastrointestinal: Normal bowel sounds, Soft and benign, Non-distended Musculoskeletal: No clubbing, No swelling, No contractures Integumentary: No rashes, No breakdown Neurological: Normal speech, Normal strength at 5/5 x4 extr, Normal tone, Sensation intact, Cranial nerves 3-12 intact - Studies Laboratory Data (last 24 hrs) 01/25/19 15:50: PT 12.5, INR 1.06 01/25/19 15:50: WBC 8.3, Hgb 12.7 L, Hct 35.2 L, Plt Count 227 01/25/19 15:50: Sodium 142, Potassium 3.8, BUN 21 H, Creatinine 1.42 H, Glucose 110 H, Magnesium 2.3, Total Bilirubin 0.4, AST 35, ALT 27, Alkaline Phosphatase 81 Assessment and Plan - Problems (Diagnosis) (1) Stroke Current Visit: Yes Status: Acute Plan: Patient is 83 years of age admitted with transient visual losses measures and is improving although is still little blurry. CT scan shows a possible infarct Hypodensity in the medial right occipital lobe is not definitive for infarction but can be correlated with any visual field defect on physical exam. Underlying atrophy and chronic ischemic change. Ventricles are in proportion. Follow-up MR imaging could be performed if there are additional findings suggesting acute ischemic event. Patient has no other neurological deficits appears to have rather severe hypertension was seen by a retail supervisor in [place] done is compliant with his medication these no prior history of cardiopulmonary disorder E quit smoking over 10 years ago patient has mild renal insufficiency admit for observation MRI scan in the morning Qualifiers: CVA mechanism: unspecified Qualified Code(s): I63.9 - Cerebral infarction, unspecified - Advance Directives Does patient have a Living Will: No Does patient have a Durable POA for Healthcare: No
[2019-01-25 20:10] LABS: Urine Blood NEGATIVE (NEG); Urine Glucose NEGATIVE (NEG); Urine Protein NEGATIVE (NEG)
[2019-01-25 20:43] VITALS: BMI 25.7
[2019-01-25] MEDS: NA CHLORIDE 0.9% 1,000 ML IV SCH (23:39)
[2019-01-26 00:49] LABS: Potassium 3.5 mmol/L (3.5-5.1)
[2019-01-26] MEDS ORDERED: TRAMADOL HCL 50 MG TAB PO PRN (01:32)
[2019-01-26] MEDS: HYDROCODONE/APAP 5/325 MG TAB PO PRN ×2 (02:02→09:20)
[2019-01-26] MEDS: ENOXAPARIN 40 MG/0.4 ML SQ SCH (06:18)
[2019-01-26] MEDS: NA CHLORIDE 0.9% 1,000 ML IV SCH ×2 (06:20→13:47)
--- NOTE | 2019-01-26 07:43 | EKG ---
Test Date: 2019-01-25 Test Time: 15:36:07 Transition Of Care Specialist: MAKAYLA MEASUREMENT RESULTS: Intervals: Rate: 57 NH: 170 QRSD: 80 QT: 410 QTc: 399 [place]: P: 51 NH: 170 QRS: 6 T: 24 INTERPRETIVE STATEMENTS: Sinus bradycardia with premature supraventricular complexes Otherwise normal ECG Compared to ECG 09/13/2018 20:22:24 Atrial premature complex(es) now present Sinus rhythm no longer present Ventricular premature complex(es) no longer present Electronically Signed On 01-26-19 07:42:36 [employer] by Sanjay Cotter
[2019-01-26] MEDS: ASPIRIN EC 81 MG TAB PO SCH (09:05)
[2019-01-26] MEDS: CLOPIDOGREL 75 MG TABLET PO SCH (09:06)
--- NOTE | 2019-01-26 09:17 | RAD REPORT ---
EXAM DESCRIPTION: MRI - Brain W/Wo Cont - 01/26/2019 8:10 am CLINICAL HISTORY: R/O STROKE Headache, drowsiness, CVA symptomology COMPARISON: MRA Head Wo Cont dated 01/26/2019; Head Brain Wo Cont dated 01/25/2019 TECHNIQUE: Multi-sequence, multiplanar MR imaging of the brain was performed with contrast. FINDINGS: No intracranial hemorrhage, hydrocephalus, or extra-axial fluid collection. 4 x 2 cm Area of T2/FLAIR hyperintensity in the distribution of the right posterior cerebral artery is noted. This demonstrates elevated diffusion signal and diminished ADC map signal compatible with acute CVA. Small er similar area of infarct is seen more superiorly in the right occipital lobe measuring 14 x 8 mm. N o hemorrhage is present.. No intracranial mass. . The midline structures are normally formed. Mastoid air cells and paranasal sinuses are clear. Post-contrast images show no abnormal enhancement to suggest tumor or infection. IMPRESSION: Moderate area of nonhemorrhagic acute CVA seen in the distribution of the right posterio r cerebral artery territory.
--- NOTE | 2019-01-26 09:31 | RAD REPORT ---
EXAM DESCRIPTION: MRI - MRA Head Wo Cont - 01/26/2019 8:10 am CLINICAL HISTORY: evaluate for occipital CVA CVA COMPARISON: Head Brain Wo Cont dated 01/25/2019 FINDINGS: 3D noncontrast [id number] MR angiography of the [place] was performed. No aneurysm, flow-limiting stenosis or vascular malformation is seen. Forward flow seen in codominant vertebral arteries. The visualized dural venous sinuses appear patent. IMPRESSION: No significant flow abnormality of the [place] is identified.
--- NOTE | 2019-01-26 09:41 | RAD REPORT ---
EXAM DESCRIPTION: MRI - MRA Neck W/Wo Cont - 01/26/2019 8:11 am CLINICAL HISTORY: R/O STROKE Headache, CVA COMPARISON: Carotid Artery Bilateral dated 01/26/2019; MRA Head Wo Cont dated 01/26/2019; Brain W/Wo Cont dated 01/26/2019 FINDINGS: Contrast enhance 2D [id number] MR angiography of the neck vessels was performed. 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 Multifocal plaquing is seen involving both carotid systems there is evidence of moderate stenosis est imated at 50-70% of the left carotid bulb and post bulbar left internal carotid artery based on NASCE T criteria. On the right, there is post bulbar stenosis of the proximal internal carotid artery estimated at 70-8 0% based on NASCET criteria. This is a fairly long segment narrowing which is relatively smooth. Antegrade flow is seen in both vertebral arteries. IMPRESSION: Moderate stenosis is present bilaterally of both internal carotid arteries, more signifi cant post bulbar right proximal ICA as detailed.
--- NOTE | 2019-01-26 09:57 | RAD REPORT ---
EXAM DESCRIPTION: US - CP - 01/26/2019 8:42 am CLINICAL HISTORY: TIA? Headache, CVA COMPARISON: MRA Neck W/Wo Cont dated 01/26/2019 TECHNIQUE: Real-time sonographic evaluation of both carotid systems was performed. Doppler interroga tion was performed with waveform tracing bilaterally. FINDINGS: Normal high resistance waveforms are noted in both external carotid arteries. The common c arotid arteries and internal carotid arteries show normal low resistance waveforms. Mixed plaque is seen involving the right distal common carotid artery. Moderate soft and hard plaque is seen involving the right carotid bulb and right post-bulbar internal carotid artery. Visually, naila rowing of the lumen of the proximal right internal carotid artery is estimated maximally at 70-80% ba sed on NASCET criteria. Mild increase in peak systolic velocity right mid internal carotid artery to 135 cm/second is seen. Soft plaque with a small amount of hard plaque in the left proximal internal carotid artery and left carotid bulb is seen. Visually there is a narrowing seen of approximately 50-70% based on NASCET crit eria. No evidence of a hemodynamically significant alteration flow velocity. Antegrade flow seen in both vertebral arteries. IMPRESSION: Moderately severe carotid stenosis is present bilaterally, mildly worse on the right as detailed.
--- NOTE | 2019-01-26 10:48 | ECHO ---
HEIGHT: 5 ft 5 in WEIGHT: 154 lb 4.8 oz DATE OF STUDY: 01/26/[address]: David Patel MD 2-DIMENSIONAL: YES M.MODE: YES DOPPLER: YES COLOR FLOW: YES TDS: PORTABLE: DEFINITY: BUBBLE STUDY: DIAGNOSIS: TRANSIENT ISCHEMIC ATTACK CARDIAC HISTORY: CATHERIZATION: NO SURGERY: NO PROSTHETIC VALVE: NO PACEMAKER: NO MEASUREMENTS (cm) DIASTOLIC (NORMALS) SYSTOLIC (NORMALS) IVSd 1.1 (0.6-1.2) LA Diam 4.0 (1.9-4.0) LVEF 69% LVIDd 4.6 (3.5-5.7) LVIDs 2.8 (2.0-3.5) %FS 39% LVPWd 1.0 (0.6-1.2) Ao Diam 2.2 (2.0-3.7) 2 DIMENSIONAL ASSESSMENT: RIGHT ATRIUM: NORMAL LEFT ATRIUM: NORMAL RIGHT VENTRICLE: NORMAL LEFT VENTRICLE: NORMAL TRICUSPID VALVE: NORMAL MITRAL VALVE: NORMAL PULMONIC VALVE: NORMAL AORTIC VALVE: NORMAL PERICARDIAL EFFUSION: NONE AORTIC ROOT: NORMAL LEFT VENTRICULAR WALL MOTION: NORMAL DOPPLER/COLOR FLOW: TRACE TRICUSPID REGURGITATION. NORMAL RIGHT VENTRICULAR SYSTOLIC PRESSURE. COMMENTS: NORMAL 2-DIMENSIONAL ECHOCARDIOGRAM. TRACE TRICUSPID REGURGITATION. TECHNOLOGIST: LETICIA DONOVAN
--- NOTE | 2019-01-26 14:37 | P.PN ---
Subjective Date of Service: 01/26/19 Chief Complaint: Problems with vision Patient states his vision is much better. He denies any vertigo today. He denies any limb weakness. He was able to ambulate without support during physical therapy session today. Physical Examination - Vital Signs Temperature: 97.5 F Blood Pressure: 121/62 Pulse: 60 Respirations: 16 Pulse Ox (%): 98 - Physical Exam General: Alert, In no apparent distress, Oriented x3 HEENT: Mucous membr. moist/pink Neck: Supple Respiratory: Clear to auscultation bilaterally, Normal air movement Cardiovascular: No edema, Regular rate/rhythm, Normal S1 S2 Gastrointestinal: Normal bowel sounds, Soft and benign, No tenderness Musculoskeletal: No swelling Neurological: Normal speech, Normal strength at 5/5 x4 extr - Studies Laboratory Data (last 24 hrs) 01/25/19 15:50: PT 12.5, INR 1.06 01/25/19 15:50: WBC 8.3, Hgb 12.7 L, Hct 35.2 L, Plt Count 227 01/25/19 15:50: Sodium 142, Potassium 3.8, BUN 21 H, Creatinine 1.42 H, Glucose 110 H, Magnesium 2.3, Total Bilirubin 0.4, AST 35, ALT 27, Alkaline Phosphatase 81 Assessment And Plan - Current Problems (Diagnosis) (1) Acute CVA (cerebrovascular accident) Current Visit: Yes Status: Acute (2) Hypertension Current Visit: Yes Status: Acute (3) Carotid artery disease Current Visit: Yes Status: Acute - Plan MRI of the brain, MRA of the head and neck and echocardiogram results reviewed. Acute CVA seen in the distribution of the right posterior cerebral artery territory noted. Continue aspirin, Plavix and Lipitor. Normal physical therapy needs. Permissive hypertension. No problem with swallowing. Neurology consult is pending.
[2019-01-26] MEDS ORDERED: ATORVASTATIN 20 MG TAB PO SCH (21:00)
--- NOTE | 2019-01-26 23:30 | CON ---
Reason For Consultation: Consultation called because of stroke. History Of Present Illness: Mr. White is an 83-year-old patient with history of hypertens ion, who went to bed normal yesterday and woke up around 8 in the morning with dizziness and blurred vision. The patient could not communicate whether or not it improve with closing either eye. There was no reported weakness or numbness in the arms or legs. He came to [facility] and his hea d CT scan was done at 3:28 p.m. yesterday, study showed a hypodense area in the right medial occipita l lobe, which has suggested possibility of an infarction that was actually confirmed the following da y, that is today as a moderate area of nonhemorrhagic acute stroke in the right posterior cerebral ar james territory. The area measured 14 x 8 mm. It should be noted that there were 2 areas in the dist ribution of the right posterior cerebral artery, one measuring 4 x 2 cm and one 14 x 8 mm. There was no hemorrhagic conversion. His carotid artery ultrasound showed [id number] stenosis present bilaterally, worse on the right with 70%-80% stenosis identified. There is 50%-70% stenosis on the left internal carotid artery. His echocardiogram showed ejection fraction of 69%. There was trace t ricuspid regurgitation, otherwise unremarkable. Past Medical History: As indicated, hypertension. Allergies: NO KNOWN DRUG ALLERGIES. Medications At Home: Aspirin 81 mg daily, clonidine 0.1 mg as needed, triamterene hydrochlorothiazid e 37.5/25 daily, amlodipine 10 mg daily. Family History: Noncontributory. Social History: No alcohol, tobacco, or IV drug use. Allergies: PENICILLIN. Review of Systems: The patient has no recent fevers or chills, nausea, vomiting, myalgias, arthralgias, headache, weight change, rash, or psychiatric complaints. No gastrointestinal or genitourinary complaints. Physical Examination: Vital Signs: Blood pressure 138/67, pulse 86, respiratory rate of 16, temperature 97.5, oxygen satur ation 98%. Weight 154 pounds, height 5 feet 5 inches, BMI 25.7. General: Mr. White is resting in bed. He communicates best Mongolian. HEENT: He is normocephalic, atraumatic. Sclerae anicteric. Oropharynx is pink and moist. Neck: Supple. Chest: Clear. Heart: Regular. Extremities: Show no clubbing, cyanosis, or edema. Neurological: He is alert and oriented to situation, place, and person. Follows commands appropriat summer. Neurologic: Remarkable for right homonymous hemianopsia. Otherwise, extraocular movements are intac t. Pupils are round, react to light and accommodation. His other cranial nerves are also intact by examination. His motor examination is normal in the upper and lower extremities bilaterally with 5/5 strength proximally and distally in the lower extremities, similarly so 5/5 strength proximally and distally. Sensory examination intact in upper and lower extremities with a stocking-glove loss. Ref lexes depressed in upper and lower extremities. Coordination intact in upper and lower extremities. Gait good stance, right arm swing. Laboratory Studies: Complete blood count with differential shows a slightly low hemoglobin of 12.7, otherwise essentially unremarkable. Coagulation panel shows INR 1.06. Chemistries show elevated cre atinine of 1.42, consistent with dehydration. Glucose ranged from 110-140, calcium 8.2. Liver funct ion studies are normal. HDL cholesterol 34, LDL cholesterol 89, total cholesterol 150, triglycerides 134. The cholesterol HDL ratio 4.41. Note, there is NIH Stroke Scale is 2. Assessment: Mr. 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 He has hypertension as a strok e risk factor, was on aspirin but not on appropriate statin and not on folic acid. Plan: 1.The patient should be on high-dose statin at least 40 mg at night, Lipitor, Plavix 75 mg daily plu s aspirin 81 mg daily, folate 1 mg daily. He may continue with Lovenox while in hospital for DVT pro phylaxis. 2.The importance of proper hydration was stressed as patient did have dehydration during the stroke. 3.The importance of regular exercise and diet modification also emphasized with the patient. After his discharge, he will likely require re-education and training to live with the homonymous hemianops ia as he may impact the objects on the left side. He does not drive and was instructed that he shoul d not be operating a machine given his risk of not seeing what is on the left and injury as result. 4.After discharge, he should follow up in Dr. Frankel's clinic 1 month later and may consider havin g prism lenses to help bring in the left visual field into his perception. KERRY/JET Voice ID: [id number] Report ID: [id number]
[2019-01-27] MEDS: NA CHLORIDE 0.9% 1,000 ML IV SCH ×2 (04:08→08:50)
[2019-01-27 06:11] LABS: Potassium 3.9 mmol/L (3.5-5.1)
[2019-01-27 08:49] VITALS: O2SAT 99
[2019-01-27] MEDS: CLOPIDOGREL 75 MG TABLET PO SCH (08:50)
[2019-01-27] MEDS: ENOXAPARIN 40 MG/0.4 ML SQ SCH (08:50)
[2019-01-27] MEDS: ASPIRIN EC 81 MG TAB PO SCH (08:50)
[2019-01-27 09:19] VITALS: TEMP 98.6
[2019-01-27] MEDS: HYDROCODONE/APAP 5/325 MG TAB PO PRN (11:06)
--- NOTE | 2019-01-27 11:36 | P.DS ---
Admission Date: 01/25/19 Discharge Date: 01/27/19 Disposition: ROUTINE DISCHARGE Discharge Condition: FAIR Reason for Admission: Problems with vision - Problems (1) Acute CVA (cerebrovascular accident) Current Visit: Yes Status: Acute (2) Hypertension Current Visit: Yes Status: Chronic (3) Carotid artery disease Current Visit: Yes Status: Acute Brief History of Present Illness: 83-year-old gentleman with a history of hypertension presented to the emergency department with a complaint of visual impairment which had been present for about 1 week. He also reported vertigo. He denied any limb weakness. Patient reports compliance with his medications. CT head done in the ED reported possible new occipital infarct. The patient was admitted for further evaluation and management of acute CVA. Hospital Course: Stroke workup was done with echocardiogram, carotid Doppler, MRI of the brain, MRA of the head and neck. MRI of the brain comfort and acute CVA in the right posterior artery distribution. MRA of the neck and carotid Doppler reported bilateral carotid artery disease, with up to 80% stenosis on the right and up to 70% percent stenosis on the left. The patient was placed on aspirin and Plavix and Lipitor and permissive hypertension. Her LDL check was 86. The patient was seen and evaluated by Dr. Frankel and determined to have left hakeem anopsia. Patient had been told to avoid operating machinery or driving. His visual impairment improved during the hospital stay. He did not develop any limb weakness. He had no trouble swallowing. He was evaluated by physical therapy and occupational therapy. Patient is considered to have no further therapy needs. He is deemed clinically stable for discharge. He will follow with Dr. Frankel well within 1 month. Vital Signs/Physical Exam: Temp Pulse Resp BP Pulse Ox 98.6 F 59 15 143/65 H 99 01/27/19 08:00 01/27/19 08:00 01/27/19 11:06 01/27/19 08:00 01/27/19 11:06 General: Alert, In no apparent distress, Oriented x3 HEENT: Mucous membr. moist/pink Neck: JVD not distended Respiratory: Clear to auscultation bilaterally, Normal air movement Cardiovascular: No edema, Regular rate/rhythm, Normal S1 S2 Gastrointestinal: Soft and benign, No tenderness Musculoskeletal: No swelling Integumentary: No rashes Neurological: Normal speech, Normal strength at 5/5 x4 extr Laboratory Data at Discharge: WBC 8.3 K/uL (4.3-10.9) 01/25/19 15:50 Hgb 12.7 g/dL (13.6-17.9) L 01/25/19 15:50 Hct 35.2 % (39.6-49.0) L 01/25/19 15:50 Plt Count 227 K/uL (152-406) 01/25/19 15:50 PT 12.5 SECONDS (9.5-12.5) 01/25/19 15:50 INR 1.06 01/25/19 15:50 Sodium 141 mmol/L (136-145) 01/27/19 05:22 Potassium 3.9 mmol/L (3.5-5.1) 01/27/19 05:22 BUN 14 mg/dL (7-18) 01/27/19 05:22 Creatinine 1.06 mg/dL (0.55-1.3) 01/27/19 05:22 Glucose 103 mg/dL (74-106) 01/27/19 05:22 Magnesium 2.3 mg/dL (1.8-2.4) 01/25/19 15:50 Total Bilirubin 0.4 mg/dL (0.2-1.0) 01/25/19 15:50 AST 35 U/L (15-37) 01/25/19 15:50 ALT 27 U/L (12-78) 01/25/19 15:50 Alkaline Phosphatase 81 U/L (45-117) 01/25/19 15:50 Triglycerides 134 mg/dL (<150) 01/26/19 04:05 Cholesterol 150 mg/dL (<200) 01/26/19 04:05 HDL Cholesterol 34 mg/dL (40-60) L 01/26/19 04:05 Cholesterol/HDL Ratio 4.41 01/26/19 04:05 Home Medications: Amlodipine [Norvasc*] 1 tab PO DAILY 01/26/19 Carvedilol [Coreg] 1 tab PO BID 01/26/19 Triamterene/Hydrochlorothiazid [Triamterene-Hctz 37.5-25 mg Tb] 1 tab PO DAILY 01/26/19 cloNIDine HCL [Catapres*] 1 tab PO DAILY PRN 01/26/19 Aspirin 1 tab PO DAILY #30 tab.chew 01/27/19 Atorvastatin Calcium [Lipitor] 40 mg PO BEDTIME #30 tablet 01/27/19 Clopidogrel Bisulfate [Plavix*] 75 mg PO DAILY #30 tablet 01/27/19 New Medications: Aspirin 1 tab PO DAILY #30 tab.chew Atorvastatin Calcium [Lipitor] 40 mg PO BEDTIME #30 tablet Clopidogrel Bisulfate [Plavix*] 75 mg PO DAILY #30 tablet Diet: AHA Activity: Avoid operating machinery or driving Followup: Dakota Frankel MD [ASSOCIATE-ACTIVE - CAN ADMIT] - (within 1 month) Time spent managing pt's care (in minutes): 35
[2019-01-27 13:25] VITALS: BP 141/54
== END 2019-01-27 13:10 | disposition home or self-care (01) | DRG 66 ==
LOC: ER 14:54 → SUPCPDRO 14:54 → ERHOLD 16:52 → 4TH 20:09
PROVIDERS: ADMIT Internal Medicine Sleep Medicine; ATTEND Internal Medicine
DX: I63.9 Cerebral infarction, unspecified (principal); I10 Essential (primary) hypertension; I25.10 Atherosclerotic heart disease of native coronary artery without angina pectoris; E86.0 Dehydration
CPT/HCPCS: 36415; 70450; 70544; 70549; 70553; 71045; 80048; 80061; 80076; 81003; 82947; 83735; 83880; 84484; 85025; 85610; 93005; 93306; 93880; 96365; 96366; 97112; 97116; 97161; 97167; 99285; A9577; J1650; J7030

== ENCOUNTER 2019-09-23 20:28 | Inpatient (IN) | payer OTHER ==
--- OUTSIDE RECORDS SUMMARY | 2019-09-23 20:30 | XMS REPORT | Continuity of Care Document ---
:1935 Author Organization [facility] t Address [address] [place] [address] Dr. Crocker [address] [place] [id number] Care Team Providers Name Role Phone Unavailable Unavailable Unavailable Problems This patient has no known problems. Allergies, Adverse Reactions, Alerts This patient has no known allergies or adverse reactions. Medications This patient has no known medications. Procedures This patient has no known procedures. Results This patient has no known results.
[2019-09-23] MEDS ORDERED: ASPIRIN 81 MG CHEWABLE TABLET ONE ×2 (21:07→21:08)
[2019-09-23 21:08] LABS: Absolute Lymphocytes (CBC) 1.6 K/uL (0.7-4.9); Basophils % 0.6 % (0-1.3); Hematocrit 42.1 % (39.6-49.0); Lymphocytes % 15.5 % (15.3-44.8); MPV 8.7 fL (7.6-11.3)
[2019-09-23] MEDS ORDERED: MORPHINE 4 MG/ML SYR ONE (21:08)
[2019-09-23 21:09] LABS: Protime INR 1.17
[2019-09-23 21:22] LABS: Albumin 3.5 g/dL (3.4-5.0); Bilirubin Direct 0.2 mg/dL (0-0.2); Bilirubin Total 0.7 mg/dL (0.2-1.0); Magnesium 1.9 mg/dL (1.8-2.4); Protein, Total 7.4 g/dL (6.4-8.2); Troponin (Emerg Dept Use Only) 0.02 ng/mL (0.0-0.045)
--- NOTE | 2019-09-23 22:29 | ER ---
Nurse's Notes [facility] Name: Moy White Age: 83 yrs Sex: Male : 1935 Arrival Date: 09/23/2019 Time: 20:37 Bed 18 Private MD: Diagnosis: Pulmonary embolism without acute cor pulmonale;Unspecified atrial fibrillation;Cholelithiasis Presentation: 09/22 20:37 Chief complaint: Patient's son or daughter states: he complained of right sided chest mg2 pain and shortness of breath that started an hour ago. denies cough and fever. Coronavirus screen: Client denies travel out of the [place] in the last 14 days. shortness of breath, The client denies any previous COVID testing. Ebola Screen: No symptoms or risks identified at this time. Initial Sepsis Screen: Does the patient meet any 2 criteria? No. Patient's initial sepsis screen is negative. Does the patient have a suspected source of infection? No. Patient's initial sepsis screen is negative. Risk Assessment: Do you want to hurt yourself or someone else? Patient reports no desire to harm self or others. Onset of symptoms was September 23, 2019. 20:37 Method Of Arrival: Wheelchair mg2 20:37 Acuity: MARIAN 2 mg2 Historical: - Allergies: 20:40 No Known Allergies; mg2 - Home Meds: 20:40 amlodipine 10 mg tab once daily [Active]; mg2 - PMHx: 20:40 Hypertension; mg2 - PSHx: 20:40 None; mg2 - Immunization history:: Flu vaccine is not up to date. - Social history:: Smoking status: Patient/guardian denies using tobacco, Patient/guardian denies using street drugs, IV drugs. Screenin:40 Abuse screen: Denies threats or abuse. Denies injuries from another. Nutritional ca1 screening: No deficits noted. Tuberculosis screening: No symptoms or risk factors identified. Fall Risk IV access (20 points). Assessment: 20:40 General: Appears uncomfortable, Behavior is cooperative, restless. Pain: Complains of mg2 pain in chest Pain does not radiate. Pain currently is 10 out of 10 on a pain scale. Quality of pain is described as aching, Pain began suddenly, 1 hour ago. Is intermittent. Neuro: Level of Consciousness is awake, alert, obeys commands, Oriented to person, place, time, situation. Cardiovascular: Capillary refill < 3 seconds Patient's skin is warm and dry. Cardiovascular: Reports chest pain, shortness of breath. Respiratory: Airway Respiratory effort is even, unlabored, Respiratory pattern is regular, symmetrical. GI: No signs and/or symptoms were reported involving the gastrointestinal system. : No signs and/or symptoms were reported regarding the genitourinary system. EENT: No signs and/or symptoms were reported regarding the EENT system. Derm: Skin is intact, is healthy with good turgor, Skin is pink, warm \T\ dry. normal. Musculoskeletal: Circulation, motion, and sensation intact. Capillary refill < 3 seconds. 21:40 Reassessment: Patient appears in no apparent distress at this time. Patient and/or mg2 family updated on plan of care and expected duration. Pain level reassessed. Patient is alert, oriented x 3, equal unlabored respirations, skin warm/dry/pink. Patient states feeling better. 09/23 17:06 Reassessment: Unable to give report at this time. rb1 17:55 Reassessment: Called report to ROBERT Cool. Information from the SBAR was given. All rb1 questions asked and answered. Vital Signs: 09/22 20:37 BP 148 / 119; Pulse 82; Resp 20; Temp 98.3; Pulse Ox 96% on R/A; Weight 63.5 kg; Height mg2 5 ft. 2 in. (157.48 cm); Pain 10/10; 21:30 BP 151 / 93; Pulse 73; Resp 18; Pulse Ox 95% on R/A; mg2 20:37 Body Mass Index 25.61 (63.50 kg, 157.48 cm) mg2 ED Course: 20:37 Patient arrived in ED. mg2 20:40 Triage completed. mg2 20:40 No provider procedures requiring assistance completed. Initial lab(s) drawn, by me, ca1 sent to lab. Inserted saline lock: 20 gauge in right antecubital area, using aseptic technique. Blood collected. 20:40 Arm band placed on. mg2 20:40 Patient has correct armband on for positive identification. Placed in gown. Bed in low ca1 position. Call light in reach. Side rails up X2. record systems analyst on. Pulse ox on. NIBP on. Warm blanket given. 20:42 Sukumar Santa MD is Attending Physician. tw4 20:42 Abelardo Okeefe PA is PHCP. cp 20:42 Sukumar Santa MD is Attending Physician. cp 20:54 Haseeb Gates, ROBERT is Primary Nurse. mg2 21:33 XRAY Chest (1 view) In Process Unspecified. EDMS 21:42 US Abdomen Limited In Process Unspecified. EDMS 21:56 CT Aorta for Dissection In Process Unspecified. EDMS 22:28 Don Little DO is Hospitalizing Provider. cp 09/23 18:19 Patient admitted, IV remains in place. rb1 Administered Medications: 09/22 21:01 Drug: morphine 4 mg {Note: rass 0.} Route: IVP; Site: right antecubital; ca1 22:55 Follow up: Response: No adverse reaction mg2 21:01 Drug: Aspirin Chewable Tablet 324 mg Route: PO; ca1 22:55 Follow up: Response: No adverse reaction mg2 22:53 Drug: Lovenox 1 mg/kg Route: Sub-Q; Site: right lower abdomen; mg2 22:55 Drug: NS 0.9% 500 ml Route: IV; Rate: 500 ml/hr; Site: right antecubital; mg2 09/23 00:32 Follow up: Response: No adverse reaction; IV Status: Completed infusion; IV Intake: ca1 500ml Intake: 00:32 IV: 500ml; Total: 500ml. ca1 Outcome: 09/22 22:28 Decision to Hospitalize by Provider. 09/23 00:54 Admitted to ER Hold. Please see [facility] for further documentation. mg2 18:19 Admitted to Tele accompanied by tech, via wheelchair, room 402, with chart, Report rb1 called to ROBERT Cool 18:19 Condition: stable 18:19 Instructed on the need for admit. 18:21 Patient left the ED. rb1 Signatures: Dispatcher [employer] EDMS Abelardo Okeefe PA PA cp Dayanara Nolan, RN RN rb1 Sukumar Santa MD MD tw4 Haseeb Gates RN RN mg2 Keyla Berger RN RN ca1
--- NOTE | 2019-09-23 22:29 | EDPHYS ---
Physician Documentation [facility] Name: Moy White Age: 83 yrs Sex: Male : 1935 Arrival Date: 09/23/2019 Time: 20:37 Bed 18 Private MD: ED Physician Sukumar Santa HPI: 09/22 20:45 This 83 yrs old Male presents to ER via Wheelchair with complaints of Right cp Side Chest Pain. 20:45 The patient or guardian reports chest pain that is located primarily in the anterior cp chest wall, right lower chest. Onset: suddenly, 1 hour(s) ago. The pain does not radiate. Associated signs and symptoms: Pertinent positives: abdominal pain, diaphoresis, shortness of breath, Pertinent negatives: cough, lower extremity pain, lower extremity swelling, palpitations, syncope. The chest pain is described as sharp. Duration: The patient or guardian reports a single episode, that is still ongoing, and worsening. Modifying factors: the symptoms are aggravated by breathing, movement, palpation of area. Historical: - Allergies: 20:40 No Known Allergies; mg2 - Home Meds: 20:40 amlodipine 10 mg tab once daily [Active]; mg2 - PMHx: 20:40 Hypertension; mg2 - PSHx: 20:40 None; mg2 - Immunization history:: Flu vaccine is not up to date. - Social history:: Smoking status: Patient/guardian denies using tobacco, Patient/guardian denies using street drugs, IV drugs. ROS: 20:50 Constitutional: Negative for body aches, chills, fever, poor PO intake. cp 20:50 Eyes: Negative for injury, pain, redness, and discharge. cp 20:50 ENT: Negative for ear pain, sore throat, difficulty swallowing, difficulty handling secretions. 20:50 Cardiovascular: Positive for chest pain, of the right lower chest, Negative for edema, palpitations. 20:50 Respiratory: Positive for shortness of breath, Negative for cough, wheezing. 20:50 Abdomen/GI: Positive for abdominal pain, Negative for vomiting, diarrhea, constipation. 20:50 Back: Negative for radiated pain. 20:50 : Negative for urinary symptoms, testicular pain 20:50 Skin: Negative for rash. 20:50 Neuro: Negative for altered mental status, headache, weakness. 20:50 All other systems are negative. Exam: 20:37 ECG was reviewed by the Attending Physician. cp 20:55 Head/Face: Normocephalic, atraumatic. cp 20:55 Constitutional: The patient appears alert, awake, non-diaphoretic, non-toxic, well developed, well nourished, in obvious distress, mildly distressed, in obvious pain, uncomfortable. 20:55 Eyes: Periorbital structures: appear normal, Conjunctiva: normal, no exudate, no injection, Sclera: no appreciated abnormality, Lids and lashes: appear normal, bilaterally. 20:55 ENT: External ear(s): are unremarkable, Nose: is normal, Mouth: Lips: moist, Oral mucosa: moist, Posterior pharynx: Airway: no evidence of obstruction, patent. 20:55 Neck: ROM/movement: is normal, is supple, no meningismus, no nuchal rigidity. 20:55 Chest/axilla: Inspection: normal, Palpation: crepitus, is not appreciated, tenderness, that is severe, of the right lower chest, that partially reproduces the patient's complaints. 20:55 Cardiovascular: Rate: normal, Rhythm: irregular, Edema: is not appreciated, JVD: is not appreciated. 20:55 Respiratory: the patient does not display signs of respiratory distress, Respirations: labored breathing, that is mild, shallow respirations, that is mild, Breath sounds: are clear throughout, no decreased breath sounds, no stridor, no wheezing. 20:55 Abdomen/GI: Inspection: abdomen appears normal, Bowel sounds: active, all quadrants, Palpation: soft, in all quadrants, moderate abdominal tenderness, in the right upper quadrant, rebound tenderness, is not appreciated, voluntary guarding, is elicited in the right upper quadrant. 20:55 Back: pain, is absent, ROM is normal. 20:55 Skin: no rash present. 20:55 Neuro: Orientation: to person, place \T\ time. Mentation: is normal, Cerebellar function: is grossly normal, Motor: moves all fours, strength is normal, Sensation: is normal. Vital Signs: 20:37 BP 148 / 119; Pulse 82; Resp 20; Temp 98.3; Pulse Ox 96% on R/A; Weight 63.5 kg; Height mg2 5 ft. 2 in. (157.48 cm); Pain 10/10; 21:30 BP 151 / 93; Pulse 73; Resp 18; Pulse Ox 95% on R/A; mg2 20:37 Body Mass Index 25.61 (63.50 kg, 157.48 cm) mg2 MDM: 20:47 Patient medically screened. cp 22:30 Data reviewed: vital signs, nurses notes, lab test result(s), EKG, radiologic studies, cp CT scan, plain films, I have discussed the patient's presentation/case with the attending Emergency Department Physician; and as a result, I will admit patient. 22:30 The patient was given aspirin in the Emergency Department. Test interpretation: by ED cp physician or midlevel provider: ECG. Counseling: I had a detailed discussion with the patient and/or guardian regarding: the historical points, exam findings, and any diagnostic results supporting the discharge/admit diagnosis, lab results, radiology results, the need for further work-up and treatment in the hospital. Response to treatment: the patient's symptoms have markedly improved after treatment, and as a result, I will admit patient. Physician consultation: Carlyle MILAN was called at 22:25, was contacted at 22:25, regarding admission, to the telemetry unit. patient's condition, and will see patient in ED, shortly. 09/22 20:39 Order name: Basic Metabolic Panel; Complete Time: 21:25 ca1 09/22 21:26 Interpretation: Normal except: NA 147; CL 112; GLUC 123; GFR 64. cp 09/22 20:39 Order name: CBC with Diff; Complete Time: 21:25 ca1 09/22 20:39 Order name: LFT's; Complete Time: 21:25 ca1 09/22 20:39 Order name: Magnesium; Complete Time: 21:25 ca1 09/22 20:39 Order name: NT PRO-BNP; Complete Time: 21:25 ca1 09/22 20:39 Order name: PT-INR; Complete Time: 21:25 ca1 09/22 20:39 Order name: Troponin (emerg Dept Use Only); Complete Time: 21:25 ca1 09/22 21:07 Order name: Lipase; Complete Time: 21:25 EDMS 09/22 22:42 Order name: COVID-19 cp 09/22 22:42 Order name: CORONAVIRUS EDMS 08/12 23:39 Order name: Urinalysis EDMS 09/22 23:39 Order name: Basic Metabolic Panel EDMS 09/22 23:39 Order name: Basic Metabolic Panel; Complete Time: 15:39 EDMS 09/22 20:39 Order name: XRAY Chest (1 view); Complete Time: 15:39 ca1 09/22 20:39 Order name: EKG; Complete Time: 20:40 ca1 09/22 20:50 Order name: US Abdomen Limited; Complete Time: 15:39 cp 09/22 21:29 Order name: CT Aorta for Dissection; Complete Time: 15:39 cp 09/22 23:39 Order name: Regular EDMS 09/22 23:39 Order name: CBC with Automated Diff EDMS 09/22 23:39 Order name: CBC with Automated Diff; Complete Time: 15:39 EDMS 09/22 23:39 Order name: Magnesium EDMS 09/22 23:39 Order name: Magnesium; Complete Time: 15:39 EDMS 09/23 04:25 Order name: SARS-COV-2 RT PCR; Complete Time: 15:39 EDMS 09/23 08:11 Order name: US; Complete Time: 15:39 EDMS 09/22 20:39 Order name: Cardiac monitoring; Complete Time: 20:40 ca1 09/22 20:39 Order name: EKG - Nurse/Tech; Complete Time: 20:40 ca1 09/22 20:39 Order name: IV Saline Lock; Complete Time: 20:40 ca1 09/22 20:39 Order name: Labs collected and sent; Complete Time: 20:40 ca1 09/22 20:39 Order name: O2 Per Protocol; Complete Time: 20:40 ca1 09/22 20:39 Order name: O2 Sat Monitoring; Complete Time: 20:40 ca1 09/22 22:42 Order name: Document PUI#; Complete Time: 00:33 cp 08/12 22:42 Order name: Droplet/Contact Precautions; Complete Time: 22:53 cp 09/22 22:42 Order name: Notify Health Dept [phone]/ ; Complete Time: 22:53 cp EC:37 Rate is 88 beats/min. Rhythm is irregularly irregular. QRS interval is normal. QT cp interval is normal. Interpreted by me. Reviewed by me. Administered Medications: 21:01 Drug: morphine 4 mg {Note: rass 0.} Route: IVP; Site: right antecubital; ca1 22:55 Follow up: Response: No adverse reaction mg2 21:01 Drug: Aspirin Chewable Tablet 324 mg Route: PO; ca1 22:55 Follow up: Response: No adverse reaction mg2 22:53 Drug: Lovenox 1 mg/kg Route: Sub-Q; Site: right lower abdomen; mg2 22:55 Drug: NS 0.9% 500 ml Route: IV; Rate: 500 ml/hr; Site: right antecubital; mg2 09/23 00:32 Follow up: Response: No adverse reaction; IV Status: Completed infusion; IV Intake: ca1 500ml Disposition: 09/23/19 22:28 Hospitalization ordered by Don Little for Inpatient Admission. Preliminary diagnosis are Pulmonary embolism without acute cor pulmonale, Unspecified atrial fibrillation, Cholelithiasis. - Bed requested for Telemetry/MedSurg (Inpatient). - Status is Inpatient Admission. rb1 - Condition is Stable. - Problem is new. - Symptoms have improved. Addendum: 09/27/2019 00:23 Co-signature as Attending Physician, Sukumar Santa MD I agree with the assessment and t w4 plan of care. Signatures: Dispatcher [employer] [facility] Sharda Rosales RN RN Hodan Babcock RN RN bb Page, Corey, PA PA cp Barber, Rebecca, ROBERT RN rb1 Sukumar Santa MD MD tw4 Haseeb Gates RN RN mg2 Keyla Berger RN RN ca1 Corrections: (The following items were deleted from the chart) 09/22 21:07 20:48 LIPASE+C.LAB.BRZ ordered. ED[facility] EDMS 21:31 21:26 Chest For PE Angio+CT.RAD.BRZ ordered. ED[facility] EDMS 22:29 22:28 Hospitalization Ordered by Don Little DO for Inpatient Admission. Preliminary cp diagnosis is Pulmonary embolism without acute cor pulmonale. Bed requested for Telemetry/MedSurg (Inpatient). Status is Inpatient Admission. Condition is Stable. Problem is new. Symptoms have improved. cp 22:43 22:29 09/23/2019 22:28 Hospitalization Ordered by Don Little DO for Inpatient cp Admission. Preliminary diagnosis is Pulmonary embolism without acute cor pulmonale; Unspecified atrial fibrillation. Bed requested for Telemetry/MedSurg (Inpatient). Status is Inpatient Admission. Condition is Stable. Problem is new. Symptoms have improved. 09/23 00:24 09/22 22:43 09/23/2019 22:28 Hospitalization Ordered by Don Sidney BORREGO for Inpatient bb Admission. Preliminary diagnosis is Pulmonary embolism without acute cor pulmonale; Unspecified atrial fibrillation; Cholelithiasis. Bed requested for Telemetry/MedSurg (Inpatient). Status is Inpatient Admission. Condition is Stable. Problem is new. Symptoms have improved. 09/23 15:25 00:24 09/23/2019 22:28 Hospitalization Ordered by [facility]RE[facility] for Inpatient dw Admission. Preliminary diagnosis is Pulmonary embolism without acute cor pulmonale; Unspecified atrial fibrillation; Cholelithiasis. Bed requested for [facility] ER HOLD. Status is Inpatient Admission. Condition is Stable. Problem is new. Symptoms have improved. 15:45 15:25 09/23/2019 22:28 Hospitalization Ordered by Don Sidney BORREGO for Inpatient dw Admission. Preliminary diagnosis is Pulmonary embolism without acute cor pulmonale; Unspecified atrial fibrillation; Cholelithiasis. Bed requested for Telemetry/MedSurg (Inpatient). Status is Inpatient Admission. Condition is Stable. Problem is new. Symptoms have improved. 16:59 15:45 09/23/2019 22:28 Hospitalization Ordered by Don Sidney BORREGO for Inpatient dw Admission. Preliminary diagnosis is Pulmonary embolism without acute cor pulmonale; Unspecified atrial fibrillation; Cholelithiasis. Bed requested for [facility] ER HOLD. Status is Inpatient Admission. Condition is Stable. Problem is new. Symptoms have improved. 16:59 16:59 09/23/2019 22:28 Hospitalization Ordered by Don Sidney BORREGO for Inpatient dw Admission. Preliminary diagnosis is Pulmonary embolism without acute cor pulmonale; Unspecified atrial fibrillation; Cholelithiasis. Bed requested for Telemetry/MedSurg (Inpatient). Status is Inpatient Admission. Condition is Stable. Problem is new. Symptoms have improved. 18:21 16:59 09/23/2019 22:28 Hospitalization Ordered by [facility]RE[facility] for Inpatient rb1 Admission. Preliminary diagnosis is Pulmonary embolism without acute cor pulmonale; Unspecified atrial fibrillation; Cholelithiasis. Bed requested for Telemetry/MedSurg (Inpatient). Status is Inpatient Admission. Condition is Stable. Problem is new. Symptoms have improved. dw
[2019-09-23] MEDS ORDERED: NA CHLORIDE 0.9% 500 ML ONE (22:56)
[2019-09-23] MEDS ORDERED: ENOXAPARIN 60 MG/0.6 ML SQ ONE (22:56)
--- NOTE | 2019-09-23 23:46 | P.HP ---
Certification for Inpatient With expected LOS: >2 Midnights Patient will require the following post-hospital care: None Practitioner: I am a practitioner with admitting privileges, knowledge of patient current condition, hospital course, and medical plan of care. Services: Services provided to patient in accordance with Admission requirements found in Title 42 Section 412.3 of the Code of Federal Regulations <Carlyle Rivers - Last Filed: 09/23/19 23:39> Patient admitted to: Observation With expected LOS: <2 Midnights <Don Little - Last Filed: 09/24/19 16:25> Patient History Date of Service: 09/23/19 Reason for admission: Pulmonary embolus History of Present Illness: 83-year-old Angolan-speaking male with a past medical history of chronic atrial fibrillation and hypertension who is very hard of hearing is brought to the emergency room with complaints of sudden onset shortness of breath and pain in the right upper quadrant/lower right lateral chest. Daughter in room with patient. Patient states that he had a sudden onset of sharp pain on his right lower chest right upper quadrant. States that he was having difficulty breathing at the time as well. In the emergency room CT imaging shows a small pulmonary embolus in the right lower lung, cholelithiasis with mild biliary dilatation. Ultrasound of the gallbladder shows cholelithiasis without cholecystitis, normal gallbladder wall, gallstone x1 the and no common bile duct dilation. Patient denies right upper quadrant pain with food. In the emergency room lab work is fairly unremarkable. Lipase is within normal limits. ProBNP is slightly elevated. On physical exam patient is alert and oriented x3. He is calm and in no distress. He is not requiring O2 support at this time. Daughter states he has been noncompliant with medications. Daughter states the patient only takes aspirin daily. States that the patient was a heavy alcohol abuser and heavy smoker but quit 3 years ago. Patient be admitted and further evaluated. Home medications list reviewed: No - Past Medical/Surgical History Diabetic: No -: Hypertension -: None Psychosocial/ Personal History: Lives at home with daughter and family. - Family History Family History: Reviewed- Non-Contributory - Social History Smoking Status: Former smoker Alcohol use: No CD- Drugs: No Caffeine use: Yes Place of Residence: Home <Carlyle Rivers - Last Filed: 09/23/19 23:39> Date of Service: 09/24/19 Primary Care Provider: none - Past Medical/Surgical History -: Hx of CVA -: Hyperlipidemia -: Chronic atrial fibrillation -: Noncompliance with meds and follow up <Don Little - Last Filed: 09/24/19 16:25> Allergies Penicillins Allergy (Verified 01/25/19 23:28) Shortness of breath Home Medications: Apixaban [Eliquis] 5 mg PO BID #60 tablet 09/24/19 Aspirin 1 tab PO DAILY #30 tab.chew 09/24/19 Atorvastatin Calcium [Lipitor] 40 mg PO BEDTIME #30 tablet 09/24/19 Carvedilol [Coreg] 3.125 mg PO BID #60 tablet 09/24/19 Folic Acid 1 mg PO DAILY #90 09/24/19 Review of Systems General: As per HPI Eyes: Unremarkable ENT: Unremarkable Respiratory: Shortness of Breath Cardiovascular: Chest Pain (Right lateral lower chest) Gastrointestinal: No Distention, Unremarkable Genitourinary: Unremarkable Musculoskeletal: Unremarkable Integumentary: Unremarkable Neurological: Unremarkable Lymphatics: Unremarkable <Carlyle Rivers - Last Filed: 09/23/19 23:39> Physical Examination - Vital Signs Temperature: 98.3 F Blood Pressure: 148/119 Pulse: 82 Respirations: 20 Pulse Ox (%): 96 (RA) - Physical Exam General: Alert, In no apparent distress, Oriented x3 HEENT: Atraumatic, Normocephalic, PERRLA, Other (Hard of hearing) Neck: Supple, Other (Trachea midline) Respiratory: Diminished (Right lower lung) Cardiovascular: No edema, Normal pulses Capillary refill: <2 Seconds Gastrointestinal: Normal bowel sounds, Soft and benign, Non-distended Musculoskeletal: No swelling, No contractures, No erythema Integumentary: No breakdown, No significant lesion, No erythema Neurological: Normal gait, Normal speech, Normal strength at 5/5 x4 extr, Normal tone - Studies Laboratory Data (last 24 hrs) 09/23/19 20:47: Lipase Cancelled 09/23/19 20:35: PT 13.8 H, INR 1.17 09/23/19 20:35: WBC 10.2, Hgb 14.0, Hct 42.1, Plt Count 221 09/23/19 20:35: Sodium 147 H, Potassium 4.0, BUN 16, Creatinine 1.10, Glucose 123 H, Magnesium 1.9, Total Bilirubin 0.7, AST 14 L, ALT 18, Alkaline Phosphatase 93, Lipase 112 <Carlyle Rivers - Last Filed: 09/23/19 23:39> - Studies Laboratory Data (last 24 hrs) 09/23/19 20:47: Lipase Cancelled 09/23/19 20:35: PT 13.8 H, INR 1.17 09/23/19 20:35: WBC 10.2, Hgb 14.0, Hct 42.1, Plt Count 221 09/23/19 20:35: Sodium 147 H, Potassium 4.0, BUN 16, Creatinine 1.10, Glucose 123 H, Magnesium 1.9, Total Bilirubin 0.7, AST 14 L, ALT 18, Alkaline Phosphatase 93, Lipase 112 <Don Little - Last Filed: 09/24/19 16:25> Assessment and Plan - Plan Impression: Pulmonary embolus: Chronic atrial fibrillation: Essential hypertension: Noncompliance with medications: Plan: Pulmonary embolus: Seen on CT chest. Patient has a history of chronic atrial fibrillation and noncompliance with medications. He was also a former heavy smoker and heavy drinker but quit 3 years ago. Will start patient on full-dose Lovenox 1 milligram/kilogram b.i.d. Place on continuous telemetry. Patient will need cardiology consult. Chronic atrial fibrillation: Per daughter patient only takes an aspirin a day. Will continue telemetry. Rate is controlled at this time. It is unclear if the patient takes any other home medications. Essential hypertension: Will order hydralazine 10 mg q.4 hr p.r.n. for systolic blood pressure greater than 160 and diastolic blood pressure greater than 100. Monitor blood pressure. Noncompliance with medications: Patient is hard of hearing. Counseled in the ED. Will likely require reinforcement on compliance with medications. Discharge Plan: Home Plan to discharge in: 48 Hours - Advance Directives Does patient have a Living Will: No Does patient have a Durable POA for Healthcare: No - Code Status/Comfort Care Code Status Assessed: Yes Time Spent Managing Pts Care (In Minutes): 55 <Carlyle Rivers - Last Filed: 09/23/19 23:39> - Plan case reviewed with PA. Agree with evaluation and plan of care. I will assume coverage. Cased discussed with Pulmonary. Will change to Eliquis. Will address compliance and consider DC home. Please review progress and DC note. <Don Little - Last Filed: 09/24/19 16:25>
[2019-09-24 01:16] VITALS: BMI 25.5
[2019-09-24] MEDS ORDERED: HYDRALAZINE HCL 20 MG/ML VIAL IV PRN (02:44)
[2019-09-24 06:36] LABS: Absolute Lymphocytes (CBC) 1.2 K/uL (0.7-4.9); Basophils % 0.6 % (0-1.3); Hematocrit 38.8 % (39.6-49.0); Lymphocytes % 14.4 % (15.3-44.8); MPV 8.4 fL (7.6-11.3); RBC Red Blood Cell Count 4.56 M/uL (4.33-5.43)
[2019-09-24 06:57] LABS: Magnesium 2.2 mg/dL (1.8-2.4); Potassium 4.3 mmol/L (3.5-5.1)
--- NOTE | 2019-09-24 07:24 | RAD REPORT ---
EXAM DESCRIPTION: Hossein Single View09/23/2019 9:33 pm CLINICAL HISTORY: Shortness of breath COMPARISON: 2019 FINDINGS: The lungs appear clear of acute infiltrate. The heart is mildly enlarged IMPRESSION: No acute abnormalities displayed
--- NOTE | 2019-09-24 07:29 | RAD REPORT ---
EXAM DESCRIPTION: US - Abdomen Exam Limited - 09/23/2019 9:42 pm CLINICAL HISTORY: Abdominal pain. COMPARISON: None. FINDINGS: Cholelithiasis. 4 centimeter mass is present the gallbladder. The gallbladder wall is not thickened. The biliary tree is normal caliber. IMPRESSION: Cholelithiasis 4 centimeter gallbladder mass
[2019-09-24] MEDS ORDERED: PNEUMOCOCCAL VACCINE 0.5 ML IMVAC ONE ×2 (08:00→11:00)
--- NOTE | 2019-09-24 08:11 | RAD REPORT ---
EXAM DESCRIPTION: USExtrem Venous W Compress Bil09/24/2019 7:15 am CLINICAL HISTORY: Bilateral leg swelling COMPARISON: none FINDINGS: The common femoral, superficial femoral, popliteal and posterior tibial veins bilaterally are compressible . Doppler demonstrates good flow. IMPRESSION: No evidence of deep venous thrombosis involving either lower extremity.
--- NOTE | 2019-09-24 08:43 | P.CNS ---
Date of Consult: 09/24/19 Reason for Consult: Pulmonary embolus Chief Complaint: Pulmonary embolus History of Present Illness: Patient is 83 years of age [place]ene[place]-speaking only he has a history of chronic AFib hypertension are appearing admitted with sudden onset of shortness of breath and pain in his chest for as bedside he is doing fine he denies any complaints patient is not on anti anticoagulants. Positive for ramirez viral 8 Allergies Penicillins Allergy (Verified 01/25/19 23:28) Shortness of breath Home Medications: Amlodipine [Norvasc*] 1 tab PO DAILY 01/26/19 Carvedilol [Coreg] 1 tab PO BID 01/26/19 Triamterene/Hydrochlorothiazid [Triamterene-Hctz 37.5-25 mg Tb] 1 tab PO DAILY 01/26/19 cloNIDine HCL [Catapres*] 1 tab PO DAILY PRN 01/26/19 Aspirin 1 tab PO DAILY #30 tab.chew 01/27/19 Atorvastatin Calcium [Lipitor] 40 mg PO BEDTIME #30 tablet 01/27/19 Clopidogrel Bisulfate [Plavix*] 75 mg PO DAILY #30 tablet 01/27/19 - Past Medical/Surgical History Diabetic: No -: Hypertension -: None Psychosocial/ Personal History: Lives at home with daughter and family. - Social History Alcohol use: Yes CD- Drugs: No Caffeine use: No Place of Residence: Home Physical Examination Temp Pulse Resp BP Pulse Ox 98.3 F 82 20 148/119 H 96 09/23/19 23:56 09/23/19 23:56 09/23/19 23:56 09/23/19 23:56 09/23/19 23:56 General: Alert, In no apparent distress Respiratory: Clear to auscultation bilaterally Laboratory Data (last 24 hrs) 09/23/19 20:47: Lipase Cancelled 09/23/19 20:35: PT 13.8 H, INR 1.17 09/23/19 20:35: WBC 10.2, Hgb 14.0, Hct 42.1, Plt Count 221 09/23/19 20:35: Sodium 147 H, Potassium 4.0, BUN 16, Creatinine 1.10, Glucose 123 H, Magnesium 1.9, Total Bilirubin 0.7, AST 14 L, ALT 18, Alkaline Phosphatase 93, Lipase 112 - Problems (1) Pulmonary embolus Current Visit: Yes Status: Acute Plan: Patient is 83 years of age admitted with a chest pain hip positive for coronal virus is a mention of pulmonary embolus in his right upper lobe recommend full anticoagulation vital signs satisfactory there is a mention off atrial fibrillation patient should be fully anti coagulated with Eliquis 10 mg twice a day for a week and then 5 mg twice a day follow-up with me in 2 weeks labs reviewed in labs are unremarkable oxygenation stable discharge history of chronic AFib on aspirin only Qualifiers: Pulmonary embolism type: unspecified Acute cor pulmonale presence: unspecified
[2019-09-24] MEDS ORDERED: ENOXAPARIN 40 MG/0.4 ML SQ SCH (09:00)
[2019-09-24] MEDS: ENOXAPARIN 60 MG/0.6 ML SQ SCH ×2 (10:59→19:55)
[2019-09-24] MEDS ORDERED: ENOXAPARIN 60 MG/0.6 ML SQ ONE (11:00)
--- NOTE | 2019-09-24 11:49 | RAD REPORT ---
EXAM DESCRIPTION: CT - Angio Aorta For Dissection - 09/23/2019 9:56 pm ADDENDUM #1 THIS REPORT CONTAINS FINDINGS THAT MAY BE CRITICAL TO PATIENT CARE: The findings were verbally discussed via telephone conference with Abelardo Okeefe NP by Dr. Neha Mercado on 0 10:21 PM CDT .The results were acknowledged and understood. Electronically signed by: Elke Mercado MD 09/23/2019 10:21 PM CDT End of Addendum EXAM DESCRIPTION: CT Angiography Chest, Abdomen and Pelvis With Intravenous Contrast CLINICAL HISTORY: The patient is 83 years old and is Male; CHEST PAIN TECHNIQUE: Axial computed tomographic angiography images of the chest, abdomen and pelvis with intra venous contrast. Sagittal and coronal reformatted images were created and reviewed. This CT exam was performed using one or more of the following dose reduction techniques: automated exposure cont rol, adjustment of the mA and/or kV according to patient size, and/or use of iterative reconstruction technique. MIP reconstructed images were created and reviewed. COMPARISON: No relevant prior studies available. FINDINGS: VASCULATURE: AORTA: Minimal atherosclerosis of the aorta is present. No aortic aneurysm. No dissection. PULMONARY ARTERIES: Small filling defect peripherally located within the left lower lobe pulmonar y artery extending into the segmental and subsegmental pulmonary artery branches. Small filling defec t within the left upper lobe and lingular subsegmental pulmonary artery branches also present. Small filling defect within the right lower lobe segmental and subsegmental pulmonary artery branches are p resent. There is no saddle embolus. GREAT VESSELS OF AORTIC ARCH: No acute findings. No dissection. No arterial occlusion or sig nificant stenosis. CELIAC TRUNK AND MESENTERIC ARTERIES: No acute findings. No occlusion or significant stenosis. RENAL ARTERIES: No acute findings. No occlusion or significant stenosis. ILIAC ARTERIES: No acute findings. No occlusion or significant stenosis. CHEST: LUNGS: The lungs are hyperinflated. Chronic coarse interstitial markings are present. A few subtl e scattered foci of groundglass opacity within the right upper lobe is noted. Minimal dependent atele ctasis in the lung bases is present. PLEURAL SPACE: Trace right pleural effusion. No pneumothorax. HEART: The heart is enlarged. No significant pericardial effusion. ABDOMEN: LIVER: The liver is enlarged. Measuring approximately 0.8 cm. A 2.4 cm hyperattenuating lesion within the right hepatic lobe with suggestion of minimal peripheral calcification is present. GALLBLADDER AND BILE DUCTS: Echogenic sludge and gallstones are present within the gallbladder. The gallbladder is distended. Dilatation of the common bile duct PANCREAS: Unremarkable. No ductal dilation. No mass. SPLEEN: Unremarkable. No splenomegaly. ADRENALS: Unremarkable. No mass. KIDNEYS AND URETERS: Unremarkable. No hydronephrosis. No solid mass. STOMACH AND BOWEL: The stomach is distended with fluid and air. The small bowel is normal in nydia daniel. Stool is present throughout colon. There is no mucosal thickening or evidence of bowel obstructi on. PELVIS: APPENDIX: No findings to suggest acute appendicitis. BLADDER: The bladder is moderately distended. REPRODUCTIVE: The prostate is enlarged and heterogeneous. CHEST, ABDOMEN and PELVIS: INTRAPERITONEAL SPACE: Unremarkable. No significant fluid collection. No free air. BONES/JOINTS: Multilevel degenerative change of the spine is present. No acute fracture. No dislocation. SOFT TISSUES: Unremarkable. LYMPH NODES: Unremarkable. No enlarged lymph nodes. IMPRESSION: 1. No evidence of aortic aneurysm or dissection. 2. Small pulmonary thromboemboli as described. No evidence of right heart strain or saddle embolus. 3. Cholelithiasis with mild biliary distention. 4. Hyperattenuating lesion within the right hepatic lobe. Findings may be secondary to a flash filli ng hemangioma. However, this is incompletely evaluated on this single phase exam. Nonemergent further evaluation with hepatic protocol CT or MRI is recommended. 5. Nonspecific scattered groundglass opacity specifically within the right upper lobe with dependen t atelectasis in the lung bases. Imaging features can be seen with viral pneumonia, though are nonspe cific and can occur with a variety of infectious and noninfectious processes. PneInd 6. Prostatomegaly which is slightly heterogeneous. Recommend correlation with PSA and physical exam . Electronically signed by: Elke Mercado MD 09/23/2019 10:16 PM CDT Due to temporary technical issues with the PACS/Fluency reporting system, reports are being signed by the in house radiologist without review as a courtesy to ensure prompt reporting. The interpreting r adiologist is fully responsible for the content of the report..
--- NOTE | 2019-09-24 13:52 | P.DS ---
Admission Date: 09/23/19 Discharge Date: 09/24/19 Primary Care Provider: none Disposition: ROUTINE DISCHARGE Discharge Condition: GOOD Reason for Admission: Pulmonary embolus Consultations: pulmonary-Dr. Patel Procedures: CT scan: FINDINGS: VASCULATURE: AORTA: Minimal atherosclerosis of the aorta is present. No aortic aneurysm. No dissection. PULMONARY ARTERIES: Small filling defect peripherally located within the left lower lobe pulmonary artery extending into the segmental and subsegmental pulmonary artery branches. Small filling defect within the left upper lobe and lingular subsegmental pulmonary artery branches also present. Small filling defect within the right lower lobe segmental and subsegmental pulmonary artery branches are present. There is no saddle embolus. GREAT VESSELS OF AORTIC ARCH: No acute findings. No dissection. No arterial occlusion or significant stenosis. CELIAC TRUNK AND MESENTERIC ARTERIES: No acute findings. No occlusion or significant stenosis. RENAL ARTERIES: No acute findings. No occlusion or significant stenosis. ILIAC ARTERIES: No acute findings. No occlusion or significant stenosis. CHEST: LUNGS: The lungs are hyperinflated. Chronic coarse interstitial markings are present. A few subtle scattered foci of groundglass opacity within the right u pper lobe is noted. Minimal dependent atelectasis in the lung bases is present. PLEURAL SPACE: Trace right pleural effusion. No pneumothorax. HEART: The heart is enlarged. No significant pericardial effusion. ABDOMEN: LIVER: The liver is enlarged. Measuring approximately 0.8 cm. A 2.4 cm hyperattenuating lesion within the right hepatic lobe with suggestion of minimal peripheral calcification is present. GALLBLADDER AND BILE DUCTS: Echogenic sludge and gallstones are present within the gallbladder. The gallbladder is distended. Dilatation of the common bile duct PANCREAS: Unremarkable. No ductal dilation. No mass. SPLEEN: Unremarkable. No splenomegaly. ADRENALS: Unremarkable. No mass. KIDNEYS AND URETERS: Unremarkable. No hydronephrosis. No solid mass. STOMACH AND BOWEL: The stomach is distended with fluid and air. The small bowel is normal in caliber. Stool is present throughout colon. There is no mucosal thickening or evidence of bowel obstruction. PELVIS: APPENDIX: No findings to suggest acute appendicitis. BLADDER: The bladder is moderately distended. REPRODUCTIVE: The prostate is enlarged and heterogeneous. CHEST, ABDOMEN and PELVIS: INTRAPERITONEAL SPACE: Unremarkable. No significant fluid collection. No free air. BONES/JOINTS: Multilevel degenerative change of the spine is present. No acute fracture. No dislocation. SOFT TISSUES: Unremarkable. LYMPH NODES: Unremarkable. No enlarged lymph nodes. IMPRESSION: 1. No evidence of aortic aneurysm or dissection. 2. Small pulmonary thromboemboli as described. No evidence of right heart strain or saddle embolus. 3. Cholelithiasis with mild biliary distention. 4. Hyperattenuating lesion within the right hepatic lobe. Findings may be secondary to a flash filling hemangioma. However, this is incompletely evaluated on this single phase exam. Nonemergent further evaluation with hepatic protocol CT or MRI is recommended. 5. Nonspecific scattered groundglass opacity specifically within the right upper lobe with dependent atelectasis in the lung bases. Imaging features can be seen with viral pneumonia, though are nonspecific and can occur with a variety of infectious and noninfectious processes. PneInd 6. Prostatomegaly which is slightly heterogeneous. Recommend correlation with PSA and physical exam. ABUS: FINDINGS: Cholelithiasis. 4 centimeter mass is present the gallbladder. The gallbladder wall is not thickened. The biliary tree is normal caliber. IMPRESSION: Cholelithiasis 4 centimeter gallbladder mass Venous doppler: FINDINGS: The common femoral, superficial femoral, popliteal and posterior tibial veins bilaterally are compressible . Doppler demonstrates good flow. IMPRESSION: No evidence of deep venous thrombosis involving either lower extremity. Impression: Shortness of breath, chest pain secondary to small pulmonary thrombotic emboli complicated with asymptomatic COVID 19 status Chronic atrial fibrillation now on chronic anti coagulation therapy Hypertension Hyperlipidemia History of CVA Abdominal ultrasound showing cholelithiasis with [address] scan showing enlarged prostate Non compliance with follow up and medication Brief History of Present Illness: 83-year-old male with multiple medical problems including atrial fibrillation not on chronic anti coagulation therapy, hypertension, hyperlip idemia, history CVA. Patient presented with chest pain and shortness of breath. Family reports noncompliance with medication and follow up. Hospital Course: Patient presented with shortness of breath and chest pain. Workup included CT dissection. CT revealed small pulmonary emboli. This was also further complicated with positive COVID 19 test. Patient appeared to be asymptomatic as patient did not require any oxygen. Pulmonology was consulted. Patient with underlying chronic atrial fibrillation but not on chronic anti coagulation therapy. Due to the pulmonary emboli, pulmonology recommends chronic anti coagulation therapy. At discharge patient without significant shortness of breath. No indication of hypoxia. At discharge patient will continue with Trupti jeffrey 5 mg 1 pill twice daily. Education on Eliquis provided. Patient understands side effects. This was also address with family member present. Patient will likely require medication indefinitely. For his positive COVID 19 status, patient without significant symptoms or hypoxia. Recommend to continue quarantine at home. Patient will need to practice social distancing, face mask use and hand washing. Health department will follow up on patient including family. Education on CDC guidelines will be provided. Recommend follow up with pulmonology to further monitor and address. Patient will also establish care locally to continue his care. As mentioned above patient with chronic atrial fibrillation. Patient previously not on chronic anti coagulation therapy. At discharge patient will continue with Eliquis 5 mg 1 pill twice daily. Recommend follow up with cardiology to further monitor and address. At discharge patient will also continue with carvedilol 3.25 mg 1 pill twice daily. Patient with history of hypertension. This appears stable. Patient previously on Norvasc, carvedilol, triamterene hydrochlorothiazide. At discharge will recommend to continue carvedilol 3.125 mg 1 pill twice daily. Recommend to maintain blood pressure less 150/80. May need to hold medication if blood pressure less than 120 systolic or heart rate less than 50. Recommend to monitor blood pressure daily. Further adjustment can be done by his PCP. Patient with hyperlipidemia. At discharge she will continue with Lipitor 40 mg daily. Patient with history of CVA. Patient previously on aspirin and Plavix. At discharge patient may continue with aspirin 81 mg daily. Plavix has been discontinued as the patient is now on Eliquis. Patient may also continue with folic acid daily. Recommend follow up with neurology to further monitor. Abdominal ultrasound also revealed cholelithiasis. Ultrasound also showed a possible 4cm gallbladder mass. Recommend follow up with PCP to further monitor. Patient may require repeat ultrasound to further address. Other consideration would be to have patient seen by surgery to further evaluate. CT scan also showed enlarge prostate. Recommend digital exam with PCP. Patient should obtain PSA and possible urology evaluation. Vital Signs/Physical Exam: Temp Pulse Resp BP Pulse Ox 98.4 F 65 17 138/78 97 09/24/19 12:00 09/24/19 12:00 09/24/19 12:00 09/24/19 12:00 09/24/19 12:00 General: Alert, In no apparent distress, Cooperative HEENT: Atraumatic Neck: Supple Respiratory: Clear to auscultation bilaterally, Normal air movement Cardiovascular: Normal pulses, Regular rate/rhythm Musculoskeletal: No erythema, No tenderness, No warmth Neurological: Normal speech, Normal strength at 5/5 x4 extr, Normal tone, Normal affect Laboratory Data at Discharge: WBC 8.1 K/uL (4.3-10.9) D 09/24/19 06:25 Hgb 13.3 g/dL (13.6-17.9) L 09/24/19 06:25 Hct 38.8 % (39.6-49.0) L 09/24/19 06:25 Plt Count 196 K/uL (152-406) 09/24/19 06:25 PT 13.8 SECONDS (9.5-12.5) H 09/23/19 20:35 INR 1.17 09/23/19 20:35 Sodium 141 mmol/L (136-145) 09/24/19 06:25 Potassium 4.3 mmol/L (3.5-5.1) 09/24/19 06:25 BUN 14 mg/dL (7-18) 09/24/19 06:25 Creatinine 0.95 mg/dL (0.55-1.3) 09/24/19 06:25 Glucose 103 mg/dL (74-106) 09/24/19 06:25 Magnesium 2.2 mg/dL (1.8-2.4) 09/24/19 06:25 Total Bilirubin 0.7 mg/dL (0.2-1.0) 09/23/19 20:35 AST 14 U/L (15-37) L 09/23/19 20:35 ALT 18 U/L (12-78) 09/23/19 20:35 Alkaline Phosphatase 93 U/L (45-117) 09/23/19 20:35 Lipase Cancelled 09/23/19 20:47 Home Medications: Apixaban [Eliquis] 5 mg PO BID #60 tablet 09/24/19 Aspirin 1 tab PO DAILY #30 tab.chew 09/24/19 Atorvastatin Calcium [Lipitor] 40 mg PO BEDTIME #30 tablet 09/24/19 Carvedilol [Coreg] 3.125 mg PO BID #60 tablet 09/24/19 Folic Acid 1 mg PO DAILY #90 09/24/19 New Medications: Aspirin 1 tab PO DAILY #30 tab.chew Carvedilol [Coreg] 3.125 mg PO BID #60 tablet Apixaban [Eliquis] 5 mg PO BID #60 tablet Folic Acid 1 mg PO DAILY #90 Atorvastatin Calcium [Lipitor] 40 mg PO BEDTIME #30 tablet Patient Discharge Instructions: 1. Recommend follow up with PCP in 1 week to follow up this hospitalization. 2. Patient presented with shortness of breath and chest pain. Workup included CT dissection. CT revealed small pulmonary emboli. This was also further complicated with positive COVID 19 test. Patient appeared to be asymptomatic as patient did not require any oxygen. Pulmonology was consulted. Patient with underlying chronic atrial fibrillation but not on chronic anti coagulation therapy. Due to the pulmonary emboli, pulmonology recommends chronic anti coagulation therapy. At discharge patient without significant shortness of breath. No indication of hypoxia. At discharge patient will continue with Eliquis 5 mg 1 pill twice daily. Education on Eliquis provided. Patient understands side effects. This was also address with family member present. Patient will likely require medication indefinitely. For his positive COVID 19 status, patient without significant symptoms or hypoxia. Recommend to continue quarantine at home. Patient will need to practice social distancing, face mask use and hand washing. Health department will follow up on patient including family. Education on CDC guidelines will be provided. Recommend follow up with pulmonology to further monitor and address. Patient will also establish care locally to continue his care. 3. As mentioned above patient with chronic atrial fibrillation. Patient previously not on chronic anti coagulation therapy. At discharge patient will continue with Eliquis 5 mg 1 pill twice daily. Recommend follow up with cardiology to further monitor and address. At discharge patient will also continue with carvedilol 3.25 mg 1 pill twice daily. 4. Patient with history of hypertension. This appears stable. Patient previously on Norvasc, carvedilol, triamterene hydrochlorothiazide. At discharge will recommend to continue carvedilol 3.125 mg 1 pill twice daily. Recommend to maintain blood pressure less 150/80. May need to hold medication if blood pressure less than 120 systolic or heart rate less than 50. Recommend to monitor blood pressure daily. Further adjustment can be done by his PCP. 5. Patient with hyperlipidemia. At discharge she will continue with Lipitor 40 mg daily. 6. Patient with history of CVA. Patient previously on aspirin and Plavix. At discharge patient may continue with aspirin 81 mg daily. Plavix has been discontinued as the patient is now on Eliquis. Patient may also continue with folic acid daily. Recommend follow up with neurology to further monitor. 7. Abdominal ultrasound also revealed cholelithiasis. Ultrasound also showed a possible 4cm gallbladder mass. Recommend follow up with PCP to further monitor. Patient may require repeat ultrasound to further address. Other consideration would be to have patient seen by surgery to further evaluate. 8. CT scan also showed enlarge prostate. Recommend digital exam with PCP. Patient should obtain PSA and possible urology evaluation. Diet: AHA Activity: Ad thomas Time spent managing pt's care (in minutes): 55
[2019-09-24] MEDS ORDERED: carvediloL 3.125 MG TAB PO SCH (18:00)
[2019-09-24] MEDS ORDERED: carvediloL 25 MG TAB PO SCH (21:00)
[2019-09-24] MEDS ORDERED: ATORVASTATIN 40 MG TAB PO SCH (21:00)
[2019-09-24] MEDS: carvediloL 3.125 MG TAB PO SCH (21:32)
[2019-09-24 22:39] LABS: Urine Appearance CLEAR; Urine Bilirubin NEGATIVE (NEG); Urine Blood NEGATIVE (NEG); Urine Color YELLOW; Urine Glucose NEGATIVE (NEG); Urine Protein NEGATIVE (NEG); Urine pH 7.5 (5.0-7.0)
[2019-09-24 22:59] LABS: Urine Microscopic Reflex NO UMIC
[2019-09-25] MEDS: carvediloL 3.125 MG TAB PO SCH (05:16)
[2019-09-25] MEDS ORDERED: carvediloL 3.125 MG TAB PO SCH (06:00)
[2019-09-25 07:45] VITALS: BP 187/100; TEMP 97.5; O2SAT 100
--- NOTE | 2019-09-25 08:50 | P.DS ---
Admission Date: 09/24/19 Discharge Date: 09/25/19 Primary Care Provider: none Disposition: ROUTINE DISCHARGE Discharge Condition: GOOD Reason for Admission: Chest pain/Dyspnea Consultations: Pulmonary-Dr. Patel Procedures: CT scan: FINDINGS: VASCULATURE: AORTA: Minimal atherosclerosis of the aorta is present. No aortic aneurysm. No dissection. PULMONARY ARTERIES: Small filling defect peripherally located within the left lower lobe pulmonary artery extending into the segmental and subsegmental pulmonary artery branches. Small filling defect within the left upper lobe and lingular subsegmental pulmonary artery branches also present. Small filling defect within the right lower lobe segmental and subsegmental pulmonary artery branches are present. There is no saddle embolus. GREAT VESSELS OF AORTIC ARCH: No acute findings. No dissection. No arterial occlusion or significant stenosis. CELIAC TRUNK AND MESENTERIC ARTERIES: No acute findings. No occlusion or significant stenosis. RENAL ARTERIES: No acute findings. No occlusion or significant stenosis. ILIAC ARTERIES: No acute findings. No occlusion or significant stenosis. CHEST: LUNGS: The lungs are hyperinflated. Chronic coarse interstitial markings are present. A few subtle scattered foci of groundglass opacity within the right upper lobe is noted. Minimal dependent atelectasis in the lung bases is present. PLEURAL SPACE: Trace right pleural effusion. No pneumothorax. HEART: The heart is enlarged. No significant pericardial effusion. ABDOMEN: LIVER: The liver is enlarged. Measuring approximately 0.8 cm. A 2.4 cm hyperattenuating lesion within the right hepatic lobe with suggestion of minimal peripheral calcification is present. GALLBLADDER AND BILE DUCTS: Echogenic sludge and gallstones are present within the gallbladder. The gallbladder is distended. Dilatation of the common bile duct PANCREAS: Unremarkable. No ductal dilation. No mass. SPLEEN: Unremarkable. No splenomegaly. ADRENALS: Unremarkable. No mass. KIDNEYS AND URETERS: Unremarkable. No hydronephrosis. No solid mass. STOMACH AND BOWEL: The stomach is distended with fluid and air. The small bowel is normal in caliber. Stool is present throughout colon. There is no mucosal thickening or evidence of bowel obstruction. PELVIS: APPENDIX: No findings to suggest acute appendicitis. BLADDER: The bladder is moderately distended. REPRODUCTIVE: The prostate is enlarged and heterogeneous. CHEST, ABDOMEN and PELVIS: INTRAPERITONEAL SPACE: Unremarkable. No significant fluid collection. No free air. BONES/JOINTS: Multilevel degenerative change of the spine is present. No acute fracture. No dislocation. SOFT TISSUES: Unremarkable. LYMPH NODES: Unremarkable. No enlarged lymph nodes. IMPRESSION: 1. No evidence of aortic aneurysm or dissection. 2. Small pulmonary thromboemboli as described. No evidence of right heart strain or saddle embolus. 3. Cholelithiasis with mild biliary distention. 4. Hyperattenuating lesion within the right hepatic lobe. Findings may be secondary to a flash filling hemangioma. However, this is incompletely evaluated on this single phase exam. Nonemergent further evaluation with hepatic protocol CT or MRI is recommended. 5. Nonspecific scattered groundglass opacity specifically within the right upper lobe with dependent atelectasis in the lung bases. Imaging features can be seen with viral pneumonia, though are nonspecific and can occur with a variety of infectious and noninfectious processes. PneInd 6. Prostatomegaly which is slightly heterogeneous. Recommend correlation with PSA and physical exam. ABUS: FINDINGS: Cholelithiasis. 4 centimeter mass is present the gallbladder. The gallbladder wall is not thickened. The biliary tree is normal caliber. IMPRESSION: Cholelithiasis 4 centimeter gallbladder mass Venous doppler: FINDINGS: The common femoral, superficial femoral, popliteal and posterior tibial veins bilaterally are compressible . Doppler demonstrates good flow. IMPRESSION: No evidence of deep venous thrombosis involving either lower extremity. Impression: Shortness of breath, chest pain secondary to small pulmonary thrombotic emboli complicated with asymptomatic COVID 19 status Chronic atrial fibrillation now on chronic anti coagulation therapy Hypertension Hyperlipidemia History of CVA Abdominal ultrasound showing cholelithiasis with [address] scan showing enlarged prostate Non compliance with follow up and medication Brief History of Present Illness: 83-year-old male with multiple medical problems including atrial fibrillation not on chronic anti coagulation therapy, hypertension, hyperli pidemia, history CVA. Patient presented with chest pain and shortness of breath. Family reports noncompliance with medication and follow up. Hospital Course: Patient presented with shortness of breath and chest pain. Workup included CT dissection. CT revealed small pulmonary emboli. This was also further complicated with positive COVID 19 test. Patient appeared to be asymptomatic as patient did not require any oxygen. Pulmonology was consulted. Patient with underlying chronic atrial fibrillation but not on chronic anti coagulation therapy. Due to the pulmonary emboli, pulmonology recommends chronic anti coagulation therapy. At discharge patient without significant shortness of breath. No indication of hypoxia. At discharge patient will continue with El iquis 5 mg 1 pill twice daily. Education on Eliquis provided. Patient understands side effects. This was also address with family member present. Patient will likely require medication indefinitely. Prior to discharge social work helped to provide paperwork so that the patient can get assistance to continue Eliquis. He will need to establish care with a PCP initially so that paperwork can be filled out by PCP so that he can continue with medication. Pulmonology will provide 1 month sample of medication. 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 Case discussed at length with potential PCP-Dr. Navarro so that he can establish care and help with further assistance. For his positive COVID 19 status, patient without significant symptoms or hypoxia. Recommend to continue quarantine at home. Patient will need to practice social distancing, face mask use and hand washing. Health department will follow up on patient including family. Education on CDC guidelines will be provided. Recommend follow up with pulmonology to further monitor and address. Patient will also establish care locally to continue his care. As mentioned above patient with chronic atrial fibrillation. Patient previously not on chronic anti coagulation therapy. At discharge patient will continue with Eliquis 5 mg 1 pill twice daily. Recommend follow up with cardiology to further monitor and address. At discharge patient will also continue with carvedilol 25 mg 1 pill twice daily. Patient with history of hypertension. This appears stable. Patient previously on Norvasc, carvedilol, triamterene hydrochlorothiazide. At discharge will recommend to continue carvedilol 25 mg 1 pill twice daily, Norvasc 5 mg daily, and triamterene 1 pill daily. Recommend to maintain blood pressure less 150/80. May need to hold medication if blood pressure less than 120 systolic or heart rate less than 50. Recommend to monitor blood pressure daily. Further adjustment can be done by his PCP. Patient with hyperlipidemia. At discharge he will continue with Lipitor 40 mg daily. Patient with history of CVA. Patient previously on aspirin and Plavix. At discharge patient may continue with aspirin 81 mg daily. Plavix has been discontinued as the patient is now on Eliquis. Patient may also continue with folic acid daily. Recommend follow up with neurology to further monitor. Abdominal ultrasound also revealed cholelithiasis. Ultrasound also showed a possible 4cm gallbladder mass. Recommend follow up with PCP to further monitor. Patient may require repeat ultrasound to further address. Other consideration would be to have patient seen by surgery to further evaluate. CT scan also showed enlarged prostate. Recommend digital exam with PCP. Patient should also obtained a PSA test and possible urology evaluation as outpatient. Vital Signs/Physical Exam: Temp Pulse Resp BP Pulse Ox 97.5 F 75 18 187/100 H 100 09/25/19 07:43 09/25/19 07:52 09/25/19 07:43 09/25/19 07:52 09/25/19 07:43 General: Alert, In no apparent distress, Oriented x3, Cooperative HEENT: Atraumatic Neck: Supple Respiratory: Clear to auscultation bilaterally Cardiovascular: Irregular heart rate/rhythm (AFib rate controlled) Gastrointestinal: Normal bowel sounds Integumentary: No erythema, No warmth, No cyanosis Neurological: Normal speech, Normal strength at 5/5 x4 extr, Normal tone, Normal affect Laboratory Data at Discharge: WBC 8.1 K/uL (4.3-10.9) D 09/24/19 06:25 Hgb 13.3 g/dL (13.6-17.9) L 09/24/19 06:25 Hct 38.8 % (39.6-49.0) L 09/24/19 06:25 Plt Count 196 K/uL (152-406) 09/24/19 06:25 PT 13.8 SECONDS (9.5-12.5) H 09/23/19 20:35 INR 1.17 09/23/19 20:35 Sodium 141 mmol/L (136-145) 09/24/19 06:25 Potassium 4.3 mmol/L (3.5-5.1) 09/24/19 06:25 BUN 14 mg/dL (7-18) 09/24/19 06:25 Creatinine 0.95 mg/dL (0.55-1.3) 09/24/19 06:25 Glucose 103 mg/dL (74-106) 09/24/19 06:25 Magnesium 2.2 mg/dL (1.8-2.4) 09/24/19 06:25 Total Bilirubin 0.7 mg/dL (0.2-1.0) 09/23/19 20:35 AST 14 U/L (15-37) L 09/23/19 20:35 ALT 18 U/L (12-78) 09/23/19 20:35 Alkaline Phosphatase 93 U/L (45-117) 09/23/19 20:35 Lipase Cancelled 09/23/19 20:47 Home Medications: Apixaban [Eliquis] 5 mg PO BID #60 tablet 09/24/19 Aspirin 1 tab PO DAILY #30 tab.chew 09/24/19 Atorvastatin Calcium [Lipitor] 40 mg PO BEDTIME #30 tablet 09/24/19 Folic Acid 1 mg PO DAILY #90 09/24/19 Amlodipine Besylate [Norvasc] 5 mg PO DAILY #30 tablet 09/25/19 Carvedilol [Coreg] 25 mg PO BID #60 tablet 09/25/19 Triamterene/Hydrochlorothiazid [Triamterene-Hctz 37.5-25 mg Cp] 1 each PO DAILY #30 capsule 09/25/19 New Medications: Aspirin 1 tab PO DAILY #30 tab.chew Carvedilol [Coreg] 25 mg PO BID #60 tablet Apixaban [Eliquis] 5 mg PO BID #60 tablet Folic Acid 1 mg PO DAILY #90 Atorvastatin Calcium [Lipitor] 40 mg PO BEDTIME #30 tablet Amlodipine Besylate [Norvasc] 5 mg PO DAILY #30 tablet Triamterene/Hydrochlorothiazid [Triamterene-Hctz 37.5-25 mg Cp] 1 each PO DAILY #30 capsule Patient Discharge Instructions: 1. Recommend follow up with PCP in 1 week to follow up this hospitalization. 2. Patient presented with shortness of breath and chest pain. Workup included CT dissection. CT revealed small pulmonary emboli. This was also further complicated with positive COVID 19 test. Patient appeared to be asymptomatic as patient did not require any oxygen. Pulmonology was consulted. Patient with underlying chronic atrial fibrillation but not on chronic anti coagulation therapy. Due to the pulmonary emboli, pulmonology recommends chronic anti coagulation therapy. At discharge patient without significant shortness of breath. No indication of hypoxia. At discharge patient will continue with Eliquis 5 mg 1 pill twice daily. Education on Eliquis provided. Patient understands side effects. This was also address with family member present. Patient will likely require medication indefinitely. Prior to discharge social work helped to provide paperwork so that the patient can get assistance to continue Eliquis. He will need to establish care with a PCP initially so that paperwork can be filled out by PCP so that he can continue with medication. Pulmonology will provide 1 month sample of medication. 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 Case discussed at length with potential PCP-Dr. Navarro so that he can establish care and help with further assistance. For his positive COVID 19 status, patient without significant symptoms or hypoxia. Recommend to continue quarantine at home. Patient will need to practice social distancing, face mask use and hand washing. Health department will follow up on patient including family. Education on CDC guidelines will be provided. Recommend follow up with pulmonology to further monitor and address. Patient will also establish care locally to continue his care. 3. As mentioned above patient with chronic atrial fibrillation. Patient previously not on chronic anti coagulation therapy. At discharge patient will continue with Eliquis 5 mg 1 pill twice daily. Recommend follow up with cardiology to further monitor and address. At discharge patient will also continue with carvedilol 25 mg 1 pill twice daily. 4. Patient with history of hypertension. This appears stable. Patient previously on Norvasc, carvedilol, triamterene hydrochlorothiazide. At discharge will recommend to continue carvedilol 25 mg 1 pill twice daily, Norvasc 5 mg daily, and triamterene 1 pill daily. Recommend to maintain blood pressure less 150/80. May need to hold medication if blood pressure less than 120 systolic or heart rate less than 50. Recommend to monitor blood pressure daily. Further adjustment can be done by his PCP. 5. Patient with hyperlipidemia. At discharge he will continue with Lipitor 40 mg daily. 6. Patient with history of CVA. Patient previously on aspirin and Plavix. At discharge patient may continue with aspirin 81 mg daily. Plavix has been discontinued as the patient is now on Eliquis. Patient may also continue with folic acid daily. Recommend follow up with neurology to further monitor. 7. Abdominal ultrasound also revealed cholelithiasis. Ultrasound also showed a possible 4cm gallbladder mass. Recommend follow up with PCP to further monitor. Patient may require repeat ultrasound to further address. Other consideration would be to have patient seen by surgery to further evaluate. 8. CT scan also showed enlarged prostate. Recommend digital exam with PCP. Patient should also obtained a PSA test and possible urology evaluation as outpatient. Diet: AHA Activity: Ad thomas Time spent managing pt's care (in minutes): 55
[2019-09-25] MEDS ORDERED: MAXZIDE (HCTZ 25/TRIAMTERENE 37.5MG) TAB PO SCH (09:00)
[2019-09-25] MEDS ORDERED: APIXABAN 5 MG TABLET PO SCH (09:00)
[2019-09-25] MEDS ORDERED: AMLODIPINE 5 MG TAB PO SCH (09:00)
[2019-09-25] MEDS ORDERED: carvediloL 25 MG TAB PO SCH (18:00)
== END 2019-09-25 12:10 | disposition home or self-care (01) | DRG 175 ==
LOC: ER 20:28 → ERHOLD 23:32 → INTOOBSV 23:32 → 4TH 09-24 18:03 → OBSVTOIN 09-24 18:29
PROVIDERS: ADMIT Family Medicine; ATTEND Family Medicine
DX: I26.99 Other pulmonary embolism without acute cor pulmonale (principal); U07.1 COVID-19; I48.20 Chronic atrial fibrillation, unspecified; I10 Essential (primary) hypertension; E78.5 Hyperlipidemia, unspecified; K80.20 Calculus of gallbladder without cholecystitis without obstruction; K82.9 Disease of gallbladder, unspecified; N40.0 Benign prostatic hyperplasia without lower urinary tract symptoms; Z87.891 Personal history of nicotine dependence; Z91.14 Patient's other noncompliance with medication regimen; Z86.73 Personal history of transient ischemic attack (TIA), and cerebral infarction without residual deficits; Z88.0 Allergy status to penicillin; Z79.82 Long term (current) use of aspirin; Z79.899 Other long term (current) drug therapy; Z79.02 Long term (current) use of antithrombotics/antiplatelets; Z79.01 Long term (current) use of anticoagulants; Z91.19 Patient's noncompliance with other medical treatment and regimen
CPT/HCPCS: 36415; 71045; 71275; 74175; 76705; 80048; 80076; 81003; 83690; 83735; 83880; 84484; 85025; 85610; 90670; 93970; 96361; 96372; 96374; 99285; G0378; J0360; J1650; J7040; Q9967; U0003

== ENCOUNTER 2020-05-04 09:58 | Observation (INO) | payer OTHER ==
--- OUTSIDE RECORDS SUMMARY | 2020-05-04 09:59 | XMS REPORT | Continuity of Care Document ---
:1935 Author Organization [facility] t Address [address] [place] [address] Dr. Cro[address] [place] [address] Care Team Providers Name Role Phone Unavailable Unavailable Unavailable Problems This patient has no known problems. Allergies, Adverse Reactions, Alerts This patient has no known allergies or adverse reactions. Medications This patient has no known medications. Procedures This patient has no known procedures. Results This patient has no known results.
[2020-05-04 11:18] LABS: Absolute Lymphocytes (CBC) 1.5 K/uL (0.7-4.9); Basophils % 0.6 % (0-1.3); Hematocrit 42.7 % (39.6-49.0); Lymphocytes % 16.9 % (15.3-44.8); MPV 8.5 fL (7.6-11.3); RBC Red Blood Cell Count 5.01 M/uL (4.33-5.43)
[2020-05-04 11:26] LABS: Protime INR 1.08
[2020-05-04 11:41] LABS: ALT/SGPT 37 U/L (12-78); AST/SGOT 38 U/L (15-37); Albumin 3.7 g/dL (3.4-5.0); Alkaline Phosphatase 109 U/L (45-117); BUN Blood Urea Nitrogen 14 mg/dL (7-18); Bicarbonate 25 mmol/L (21-32); Bilirubin Direct 0.2 mg/dL (0-0.2); Bilirubin Total 0.6 mg/dL (0.2-1.0); Glucose Level 112 mg/dL (74-106); Magnesium 2.2 mg/dL (1.8-2.4); NT PRO-BNP 1362 pg/mL (<450); Potassium 3.8 mmol/L (3.5-5.1); Protein, Total 7.6 g/dL (6.4-8.2); Sodium Level 142 mmol/L (136-145); Troponin (Emerg Dept Use Only) < 0.02 ng/mL (0.0-0.045)
[2020-05-04] MEDS ORDERED: ASPIRIN 81 MG CHEWABLE TABLET ONE (11:52)
--- NOTE | 2020-05-04 12:22 | RAD REPORT ---
EXAM DESCRIPTION: Hossein Single View05/04/2020 12:04 pm CLINICAL HISTORY: Chest pain COMPARISON: 2019 FINDINGS: The lungs appear clear of acute infiltrate. The heart is mildly enlarged IMPRESSION: No acute abnormalities displayed
--- NOTE | 2020-05-04 17:07 | ER ---
Nurse's Notes [facility] Name: Moy White Age: 84 yrs Sex: Male : 1935 Arrival Date: 05/04/2020 Time: 09:59 Bed 14 Private MD: Diagnosis: Atrial fibrillation and flutter;Chest pain, unspecified;Unstable angina Presentation: 05/04 10:04 Chief complaint: Patient states: Chest pain started this morning. More under the arm on ca1 the E side. Gets tired easily and SOB with exertion. Coronavirus screen: Client denies travel out of the [place] in the last 14 days. At this time, the client does not indicate any symptoms associated with coronavirus-19. Ebola Screen: Patient negative for fever greater than or equal to 101.5 degrees Fahrenheit, and additional compatible Ebola Virus Disease symptoms Patient denies exposure to infectious person. Patient denies travel to an Ebola-affected area in the 21 days before illness onset. No symptoms or risks identified at this time. Initial Sepsis Screen: Does the patient meet any 2 criteria? No. Patient's initial sepsis screen is negative. Does the patient have a suspected source of infection? No. Patient's initial sepsis screen is negative. Risk Assessment: Do you want to hurt yourself or someone else? Patient reports no desire to harm self or others. Onset of symptoms was May 04, 2020. 10:04 Method Of Arrival: Ambulatory ca1 10:04 Acuity: MARIAN 3 ca1 Triage Assessment: 10:10 General: Appears in no apparent distress. uncomfortable, Behavior is cooperative, bp appropriate for age, anxious. Pain: Complains of pain in right lateral anterior chest. EENT: No deficits noted. Neuro: No deficits noted. Cardiovascular: Reports chest pain. Respiratory: No deficits noted. GI: No signs and/or symptoms were reported involving the gastrointestinal system. : No signs and/or symptoms were reported regarding the genitourinary system. Derm: No deficits noted. Musculoskeletal: No deficits noted. Historical: - Allergies: 10:07 No Known Allergies; ca1 - PMHx: 10:07 Hypertension; ca1 - PSHx: 10:07 None; ca1 - Immunization history:: Flu vaccine is not up to date. - Social history:: Smoking status: Patient denies any tobacco usage or history of. Screenin:10 Abuse screen: Denies threats or abuse. Denies injuries from another. Nutritional bp screening: No deficits noted. Tuberculosis screening: No symptoms or risk factors identified. Fall Risk None identified. Assessment: 10:10 General: SEE TRIAGE NOTE. bp 11:47 Reassessment: No changes from previously documented assessment. Patient and/or family bp updated on plan of care and expected duration. Pain level reassessed. Patient is alert, oriented x 3, equal unlabored respirations, skin warm/dry/pink. ALL CURRENT ORDERS COMPLETE, RESULTS PENDING. 13:30 Reassessment: No changes from previously documented assessment. Patient and/or family bp updated on plan of care and expected duration. Pain level reassessed. FAMILY AT B/S. 15:30 Reassessment: Patient appears in no apparent distress at this time. No changes from bp previously documented assessment. Patient and/or family updated on plan of care and expected duration. Pain level reassessed. 17:00 Reassessment: No changes from previously documented assessment. Patient and/or family bp updated on plan of care and expected duration. Pain level reassessed. D/C ON HOLD PENDING REPEAT TROP AND EKG. 18:00 Reassessment: No changes from previously documented assessment. Patient and/or family bp updated on plan of care and expected duration. Pain level reassessed. Patient is alert, oriented x 3, equal unlabored respirations, skin warm/dry/pink. D/C CANCELLED, ADMIT INITIATED. 19:20 General: Appears in no apparent distress. comfortable, Behavior is calm, cooperative, rr5 appropriate for age, hospitalist at bedside. Pain: Complains of pain in chest Pain does not radiate. Pain currently is 0 out of 10 on a pain scale. Quality of pain is described as aching, Pain began gradually. Neuro: Level of Consciousness is awake, alert, obeys commands, Oriented to person, place, time. Cardiovascular: Capillary refill < 3 seconds Patient's skin is warm and dry. Respiratory: Airway. GI: No signs and/or symptoms were reported involving the gastrointestinal system. : No signs and/or symptoms were reported regarding the genitourinary system. EENT: No signs and/or symptoms were reported regarding the EENT system. Derm: Skin is intact, is healthy with good turgor, Skin temperature is warm. Musculoskeletal: Capillary refill < 3 seconds. 19:45 Reassessment: hospitalist informed for the BP, see mar. rr5 20:35 Reassessment: Patient appears in no apparent distress at this time. Patient is alert, rr5 oriented x 3, equal unlabored respirations, skin warm/dry/pink. awaiting for room assignment. 21:40 Reassessment: Patient appears in no apparent distress at this time. Patient is alert, rr5 oriented x 3, equal unlabored respirations, skin warm/dry/pink. Vital Signs: 10:04 BP 142 / 93; Pulse 59; Resp 16 S; Temp 97.5(TE); Pulse Ox 95% on R/A; Weight 63.5 kg ca1 (R); Height 5 ft. 6 in. (167.64 cm) (R); Pain 5/10; 11:18 BP 191 / 100; Pulse 60; Resp 16; Pulse Ox 97% ; bp 11:48 BP 198 / 114; Pulse 90; Resp 17; Pulse Ox 98% ; bp 12:30 BP 157 / 117; Pulse 72; Resp 17; Pulse Ox 97% ; bp 13:30 BP 170 / 115; Pulse 79; Resp 17; Pulse Ox 97% ; bp 15:30 BP 177 / 110; Pulse 67; Resp 16; Pulse Ox 98% ; bp 16:30 BP 183 / 108; Pulse 62; Resp 16; Pulse Ox 97% ; bp 18:00 BP 175 / 84; Pulse 73; Resp 16; Pulse Ox 98% ; bp 19:41 BP 183 / 102; Pulse 83; Resp 16; Temp 98; Pulse Ox 96% ; rr5 20:40 BP 166 / 110; Pulse 75; Resp 18; Pulse Ox 97% ; rr5 21:18 BP 156 / 102; Pulse 80; Resp 17; Pulse Ox 98% ; rr5 10:04 Body Mass Index 22.60 (63.50 kg, 167.64 cm) ca1 ED Course: 09:59 Patient arrived in ED. am2 10:06 Triage completed. ca1 10:07 Arm band placed on right wrist. ca1 10:10 Patient has correct armband on for positive identification. Bed in low position. Call bp light in reach. Side rails up X2. teletypesetter monitor on. Pulse ox on. NIBP on. 10:16 Andrey Sellers MD is Attending Physician. kdr 10:26 Triston Clancy, RN is Primary Nurse. bp 11:11 Inserted saline lock: 20 gauge in right antecubital area, using aseptic technique. bp Blood collected. 12:04 XRAY Chest (1 view) In Process Unspecified. EDMS 17:25 Yinka Reynolds MD is Hospitalizing Provider. kdr 19:51 No provider procedures requiring assistance completed. Patient maintains SpO2 rr5 saturation greater than 95% on room air. 21:33 Patient admitted, IV remains in place. intact, No redness/swelling at site. rr5 Administered Medications: 11:42 Drug: Aspirin Chewable Tablet 324 mg Route: PO; bp 19:51 Drug: hydrALAZINE 10 mg Route: IV; Rate: bolus; Site: right antecubital; rr5 20:50 Follow up: Response: No adverse reaction; Blood pressure is lowered; IV Status: rr5 Completed infusion Outcome: 17:06 Discharge ordered by . kdr 17:26 Decision to Hospitalize by Provider. kdr 21:31 Admitted to Med/surg accompanied by tech, via stretcher, room 209, with chart, Report rr5 called to zee 21:31 Condition: stable 21:31 Instructed on the need for admit. 21:40 Patient left the ED. rr5 Signatures: Dispatcher [employer] EDMS Andrey Sellers MD MD kdr Danyell Sherwood am2 Triston Clancy, RN RN bp James Morton, RN RN rr5 Keyla Berger RN RN ca1
--- NOTE | 2020-05-04 17:07 | EDPHYS ---
Physician Documentation [facility] Name: Moy White Age: 84 yrs Sex: Male : 1935 Arrival Date: 05/04/2020 Time: 09:59 Bed 14 Private MD: ED Physician Andrey Sellers HPI: 05/04 14:17 This 84 yrs old Male presents to ER via Ambulatory with complaints of Chest kdr Pain. 14:17 The patient or guardian reports chest pain that is located primarily in the epigastric kdr area, chest diffusely. Onset: suddenly, this morning. The pain radiates to the left arm, the left shoulder. Associated signs and symptoms: Pertinent positives: shortness of breath, Fatigue. The chest pain is described as aching, dull, a heaviness, a pressure. Duration: The patient or guardian reports multiple episodes, that are intermittent, that wax and wane, with no pattern. Modifying factors: The symptoms are alleviated by nothing. the symptoms are aggravated by exertion, walking. Severity of pain: At its worst the pain was mild in the emergency department the pain has improved moderately. The patient has experienced similar episodes in the past, a few times, with the last episode occurring last year, today's symptoms are similar, and the symptoms today are exactly the same. The patient has not recently seen a physician. Historical: - Allergies: 10:07 No Known Allergies; ca1 - PMHx: 10:07 Hypertension; ca1 - PSHx: 10:07 None; ca1 - Immunization history:: Flu vaccine is not up to date. - Social history:: Smoking status: Patient denies any tobacco usage or history of. ROS: 14:17 Constitutional: Negative for fever, chills, and weight loss, Eyes: Negative for injury, kdr pain, redness, and discharge, ENT: Negative for injury, pain, and discharge, Neck: Negative for injury, pain, and swelling, Respiratory: Negative for shortness of breath, cough, wheezing, and pleuritic chest pain, Abdomen/GI: Negative for abdominal pain, nausea, vomiting, diarrhea, and constipation, Back: Negative for injury and pain, : Negative for injury, bleeding, discharge, and swelling, MS/Extremity: Negative for injury and deformity, Skin: Negative for injury, rash, and discoloration, Neuro: Negative for headache, weakness, numbness, tingling, and seizure activity. Psych: Negative for depression, anxiety, suicide ideation, homicidal ideation, and hallucinations, Allergy/Immunology: Negative for hives, rash, and allergies, Endocrine: Negative for neck swelling, polydipsia, polyuria, polyphagia, and marked weight changes, Hematologic/Lymphatic: Negative for swollen nodes, abnormal bleeding, and unusual bruising. 14:17 Cardiovascular: Positive for chest pain, Negative for edema, orthopnea, palpitations, acute changes. 14:17 Cardiovascular: Positive for chest pain, Negative for edema, orthopnea, palpitations, paroxysmal nocturnal dyspnea. Exam: 14:17 Constitutional: This is a well developed, well nourished patient who is awake, alert, kdr and in no acute distress. Head/Face: Normocephalic, atraumatic. Eyes: Pupils equal round and reactive to light, extra-ocular motions intact. Lids and lashes normal. Conjunctiva and sclera are non-icteric and not injected. Cornea within normal limits. Periorbital areas with no swelling, redness, or edema. Neck: Trachea midline, no thyromegaly or masses palpated, and no cervical lymphadenopathy. Supple, full range of motion without nuchal rigidity, or vertebral point tenderness. No Meningismus. Chest/axilla: Normal chest wall appearance and motion. Nontender with no deformity. No lesions are appreciated. Cardiovascular: Regular rate and rhythm with a normal S1 and S2. No gallops, murmurs, or rubs. Normal PMI, no JVD. No pulse deficits. Respiratory: Lungs have equal breath sounds bilaterally, clear to auscultation and percussion. No rales, rhonchi or wheezes noted. No increased work of breathing, no retractions or nasal flaring. Abdomen/GI: Soft, non-tender, with normal bowel sounds. No distension or tympany. No guarding or rebound. No evidence of tenderness throughout. Back: No spinal tenderness. No costovertebral tenderness. Full range of motion. Skin: Warm, dry with normal turgor. Normal color with no rashes, no lesions, and no evidence of cellulitis. MS/ Extremity: Pulses equal, no cyanosis. Neurovascular intact. Full, normal range of motion. Neuro: Awake and alert, GCS 15, oriented to person, place, time, and situation. Cranial nerves II-XII grossly intact. Motor strength 5/5 in all extremities. Sensory grossly intact. Cerebellar exam normal. Normal gait. Psych: Awake, alert, with orientation to person, place and time. Behavior, mood, and affect are within normal limits. Vital Signs: 10:04 BP 142 / 93; Pulse 59; Resp 16 S; Temp 97.5(TE); Pulse Ox 95% on R/A; Weight 63.5 kg ca1 (R); Height 5 ft. 6 in. (167.64 cm) (R); Pain 5/10; 11:18 BP 191 / 100; Pulse 60; Resp 16; Pulse Ox 97% ; bp 11:48 BP 198 / 114; Pulse 90; Resp 17; Pulse Ox 98% ; bp 12:30 BP 157 / 117; Pulse 72; Resp 17; Pulse Ox 97% ; bp 13:30 BP 170 / 115; Pulse 79; Resp 17; Pulse Ox 97% ; bp 15:30 BP 177 / 110; Pulse 67; Resp 16; Pulse Ox 98% ; bp 16:30 BP 183 / 108; Pulse 62; Resp 16; Pulse Ox 97% ; bp 18:00 BP 175 / 84; Pulse 73; Resp 16; Pulse Ox 98% ; bp 19:41 BP 183 / 102; Pulse 83; Resp 16; Temp 98; Pulse Ox 96% ; rr5 20:40 BP 166 / 110; Pulse 75; Resp 18; Pulse Ox 97% ; rr5 21:18 BP 156 / 102; Pulse 80; Resp 17; Pulse Ox 98% ; rr5 10:04 Body Mass Index 22.60 (63.50 kg, 167.64 cm) ca1 MDM: 14:17 Differential diagnosis: abnormal EKG, acute myocardial infarction, coronary artery kdr disease congestive heart failure. Data reviewed: vital signs, nurses notes, lab test result(s), EKG, radiologic studies. Counseling: I had a detailed discussion with the patient and/or guardian regarding: the historical points, exam findings, and any diagnostic results supporting the discharge/admit diagnosis, lab results, radiology results, the need for outpatient follow up. 17:06 Patient medically screened. kdr 05/04 10:30 Order name: Basic Metabolic Panel; Complete Time: 14: kdr 05/04 10:30 Order name: CBC with Diff; Complete Time: 14: kdr 05/04 10:30 Order name: LFT's; Complete Time: 14: [facility] 05/04 10:30 Order name: Magnesium; Complete Time: 14: [facility] 05/04 10:30 Order name: NT PRO-BNP; Complete Time: 14: [facility] 05/04 10:30 Order name: PT-INR; Complete Time: 14: [facility] 05/04 10:30 Order name: Troponin (emerg Dept Use Only); Complete Time: 14: [facility] 05/04 11:23 Order name: Troponin (emerg Dept Use Only): Draw two hours after initial draw; Complete kdr Time: 17:05/04 17:34 Order name: CKMB Creatine Kinase MB [facility] 05/04 17:34 Order name: CKMB Creatine Kinase MB [facility] 05/04 17:34 Order name: [facility] Creatine Kinase MB [facility] 05/04 17:34 Order name: [facility]MB Creatine Kinase MB [facility] 05/04 17:34 Order name: Creatine Phosphokinase [facility] 05/04 17:34 Order name: Creatine Phosphokinase [facility] 05/04 10:30 Order name: XRAY Chest (1 view); Complete Time: 14: [facility] 05/04 17:34 Order name: Creatine Phosphokinase [facility] 05/04 17:34 Order name: Creatine Phosphokinase [facility] 05/04 17:34 Order name: Lipid Profile [facility] 05/04 17:34 Order name: Lipid Profile [facility] 05/04 17:34 Order name: Urinalysis [facility] 05/04 17:34 Order name: Magnesium [facility] 05/04 17:34 Order name: Magnesium [facility] 05/04 17:34 Order name: Troponin I [facility] 05/04 17:34 Order name: Troponin I [facility] 05/04 17:34 Order name: Troponin I [facility] 05/04 17:34 Order name: Troponin I [facility] 05/04 17:59 Order name: COVID-19 : Document "Date of Symptom Onset" if Symptomatic. bd 05/04 19:10 Order name: CORONAVIRUS [facility] 05/04 20:11 Order name: SARS-COV-2 RT PCR [facility] 05/04 10:09 Order name: EKG; Complete Time: 10: ca1 05/04 10:09 Order name: EKG - Nurse/Tech; Complete Time: 10: ca1 03/24 10:30 Order name: Cardiac monitoring; Complete Time: 11:16 [facility] 05/04 10:30 Order name: IV Saline Lock; Complete Time: 11:16 [facility] 05/04 10:30 Order name: Labs collected and sent; Complete Time: : [facility] 05/04 10:30 Order name: O2 Per Protocol; Complete Time: 11:16 [facility] 05/04 10:30 Order name: O2 Sat Monitoring; Complete Time: 11: [facility] 05/04 17:34 Order name: [facility] EDFL Administered Medications: 11:42 Drug: Aspirin Chewable Tablet 324 mg Route: PO; bp 19:51 Drug: hydrALAZINE 10 mg Route: IV; Rate: bolus; Site: right antecubital; rr5 20:50 Follow up: Response: No adverse reaction; Blood pressure is lowered; IV Status: rr5 Completed infusion Disposition: 05/04/20 17:26 Hospitalization ordered by Yinka Reynolds for Observation. Preliminary diagnosis are Atrial fibrillation and flutter, Chest pain, unspecified, Unstable angina. - Bed requested for Telemetry/MedSurg (observation). - Status is Observation. rr5 - Condition is Fair. - Problem is new. - Symptoms have improved. Signatures: Dispatcher [employer] EDFL Andrey Sellers MD MD kdr Triston Clancy RN RN bp James Morton RN RN rr5 Keyla Berger, RN RN ca1 Gita White RN RN rd1 Corrections: (The following items were deleted from the chart) 17:25 17:06 05/04/2020 17:06 Discharged to Home. Impression: Other chest pain. Condition is kdr Stable. Forms are Medication Reconciliation Form, Thank You Letter, Antibiotic Education, Prescription Opioid Use. Follow up: Private Physician; When: 2 - 3 days; Reason: If symptoms return, Further diagnostic work-up, Recheck today's complaints, Continuance of care, Re-evaluation by your physician. Problem is new. Symptoms are resolved. kdr 21:17 17:26 Hospitalization Ordered by Yinka Reynolds MD for Observation. Preliminary rd1 diagnosis is Atrial fibrillation and flutter; Chest pain, unspecified; Unstable angina. Bed requested for Telemetry/MedSurg (observation). Status is Observation. Condition is Fair. Problem is new. Symptoms have improved. kdr 21:40 21:17 05/04/2020 17:26 Hospitalization Ordered by Yinka Reynolds MD for Observation. rr5 Preliminary diagnosis is Atrial fibrillation and flutter; Chest pain, unspecified; Unstable angina. Bed requested for Telemetry/MedSurg (observation). Status is Observation. Condition is Fair. Problem is new. Symptoms have improved. rd1
[2020-05-04] MEDS ORDERED: ALBUTEROL 2.5 MG/3 ML NEB SOL NEB PRN (17:30)
[2020-05-04] MEDS ORDERED: IPRATROPIUM BROM 0.5MG/2.5ML NEB PRN (17:30)
[2020-05-04] MEDS ORDERED: ONDANSETRON 4 MG/2 ML VIAL IV PRN (17:30)
[2020-05-04] MEDS ORDERED: MORPHINE 2 MG/ML SYR IV PRN (17:33)
[2020-05-04] MEDS ORDERED: ACETAMINOPHEN 325 MG TABLET PO PRN (17:41)
[2020-05-04] MEDS: ENOXAPARIN 40 MG/0.4 ML SQ SCH ×2 (18:00→22:33)
[2020-05-04] MEDS: ASPIRIN 81 MG CHEWABLE TABLET PO SCH (18:30)
[2020-05-04] MEDS ORDERED: HYDRALAZINE HCL 20 MG/ML VIAL ONE (20:05)
[2020-05-04 21:53] VITALS: BMI 25.3
[2020-05-04 23:08] LABS: CKMB Creatine Kinase MB 3.2 ng/mL (0.3-3.6); Creatine Phosphokinase 107 U/L (39-308); Troponin I < 0.02 ng/mL (0.0-0.045)
[2020-05-04 23:37] LABS: Urine Appearance CLEAR; Urine Bilirubin NEGATIVE (NEG); Urine Blood NEGATIVE (NEG); Urine Color YELLOW; Urine Glucose NEGATIVE (NEG); Urine Protein NEGATIVE (NEG); Urine Specific Gravity 1.015 (1.005-1.030); Urine pH 7.5 (5.0-7.0)
[2020-05-04 23:53] VITALS: O2SAT 99
[2020-05-04 23:59] LABS: Urine Microscopic Reflex NO UMIC
[2020-05-05] MEDS ORDERED: NITROGLYCERIN 0.4 MG/TAB SL PRN (00:29)
--- NOTE | 2020-05-05 00:33 | P.HP ---
Certification for Inpatient Patient admitted to: Observation With expected LOS: <2 Midnights Patient will require the following post-hospital care: None Practitioner: I am a practitioner with admitting privileges, knowledge of patient current condition, hospital course, and medical plan of care. Services: Services provided to patient in accordance with Admission requirements found in Title 42 Section 412.3 of the Code of Federal Regulations <Bret Mckeon - Last Filed: 05/05/20 01:00> Patient History Date of Service: 05/05/20 Primary Care Provider: none Reason for admission: chest pain rule out History of Present Illness: Mr. White is a 84 yo M with HTN, HLD, chronic afib, medical noncompliance here today with 5/10 constant sternal chest pain worse with exertion and improved with rest since yesterday. He reports SOB, increased fatigue. Denies edema, vision changes, HOPKINS, orthopnea, PND. Per chart review, patient was discharged in September and was instructed to take Eliquis for afib, ASA and folate for h/o CVA, lipitor, and carvedilol. Was previously also prescribed norvasc and triamterene HCTZ. Per daughter and patient, he does not take any medications at all. Former smoker, no family history of CAD. BP 142/93 on admission. Initial tropnonis negative. BNP 1362. Last ECHO in 2019 with EF 69%. - Past Medical/Surgical History Has patient received pneumonia vaccine in the past: Yes Diabetic: No -: Hypertension -: Hx of CVA -: Hyperlipidemia -: Chronic atrial fibrillation -: Noncompliance with meds and follow up -: None Psychosocial/ Personal History: Lives at home with daughter and family. - Family History Father History Unknown: Yes Mother History Unknown: Yes Notes: when pt was young - Social History Smoking Status: Former smoker Alcohol use: No CD- Drugs: No Caffeine use: Yes Place of Residence: Home <Bret Mckeon - Last Filed: 05/05/20 01:00> Date of Service: 05/05/20 <spencer messer - Last Filed: 05/05/20 12:52> Allergies No Known Allergies Allergy (Verified 05/04/20 22:07) Review of Systems General: Unremarkable Eyes: Unremarkable ENT: Unremarkable Respiratory: Shortness of Breath, As per HPI Cardiovascular: Chest Pain, As per HPI Gastrointestinal: Unremarkable Genitourinary: Unremarkable Musculoskeletal: Unremarkable Integumentary: Unremarkable Neurological: Unremarkable Lymphatics: Unremarkable <Bret Mckeon - Last Filed: 05/05/20 01:00> Physical Examination - Vital Signs Temperature: 97.5 F Blood Pressure: 142/93 Pulse: 59 Respirations: 16 Pulse Ox (%): 95 - Physical Exam General: Alert, In no apparent distress, Oriented x3 HEENT: Atraumatic, Normocephalic, PERRLA, Mucous membr. moist/pink, EOMI, Sclerae nonicteric Neck: Supple, 2+ carotid pulse no bruit, JVD not distended, No Thyromegaly, No LAD Respiratory: Clear to auscultation bilaterally, Normal air movement Cardiovascular: No edema, Normal pulses, Regular rate/rhythm, Normal S1 S2, No gallops, No rubs, No murmurs Capillary refill: <2 Seconds Gastrointestinal: Normal bowel sounds, Soft and benign, Non-distended, No ascites, No tenderness, No masses, No rebound, No guarding Musculoskeletal: No clubbing, No swelling, No contractures, No erythema, No tenderness, No warmth Integumentary: No rashes, No breakdown, No significant lesion, No tenderness/swelling, No erythema, No warmth, No cyanosis Neurological: Normal speech, Normal strength at 5/5 x4 extr, Normal tone, Sensation intact, Cranial nerves 3-12 intact, Normal affect Lymphatics: No axilla or inguinal lymphadenopathy - Studies Laboratory Data (last 24 hrs) 05/04/20 11:05: PT 12.4, INR 1.08 05/04/20 11:05: WBC 9.00, Hgb 14.2, Hct 42.7, Plt Count 230 05/04/20 11:05: Sodium 142, Potassium 3.8, BUN 14, Creatinine 0.90, Glucose 112 H, Magnesium 2.2, Total Bilirubin 0.6, AST 38 H, ALT 37, Alkaline Phosphatase 109 <Bret Mckeon - Last Filed: 05/05/20 01:00> Assessment and Plan - Problems (Diagnosis) (1) Chest pain Current Visit: Yes Status: Acute Plan: cardiology consulted. initial troponins negative. given ASA. lipid panel, TSH/T4 pending. PRN morphine and nitroglycerin. DVT prophylaxis. currently without chest pain. CXR shows heart is mildly enlarged. Qualifiers: Chest pain type: unspecified Qualified Code(s): R07.9 - Chest pain, unspecified (2) HLD (hyperlipidemia) Current Visit: Yes Status: Acute Plan: will check lipid panel in the AM. Qualifiers: Hyperlipidemia type: unspecified Qualified Code(s): E78.5 - Hyperlipidemia, unspecified (3) Chronic a-fib Current Visit: Yes Status: Acute Plan: patient noncompliant with Eliquis. currently stable. on telemetry. will continue to monitor. cardiology consulted. (4) History of CVA (cerebrovascular accident) Current Visit: Yes Status: Acute Plan: currently stable. patient noncompliant with ASA and folate. on ASA daily while admitted. (5) Hypertension Current Visit: No Status: Chronic Plan: currently stable. received hydralazine in the ER. will continue to monitor. Qualifiers: Hypertension type: essential hypertension Qualified Code(s): I10 - Essential (primary) hypertension Discharge Plan: Home Plan to discharge in: 24 Hours - Advance Directives Does patient have a Living Will: No Does patient have a Durable POA for Healthcare: No - Code Status/Comfort Care Code Status Assessed: Yes (full code) Critical Care: No Time Spent Managing Pts Care (In Minutes): 70 <Bret Mckeon - Last Filed: 05/05/20 01:00> Physician Review: Patient Assessed, Agree with Above Assessment and Plan Physician Review Additional Text: Chest pain Uncontrolled hypertension Medication non-compliance Plan: Trend troponin. Blood pressure control <spencer messer - Last Filed: 05/05/20 12:52>
[2020-05-05 05:16] LABS: Thyroid Stimulating Hormone 1.73 uIU/mL (0.360-3.740)
[2020-05-05 06:36] LABS: CKMB Creatine Kinase MB 2.7 ng/mL (0.3-3.6); Creatine Phosphokinase 96 U/L (39-308); Troponin I < 0.02 ng/mL (0.0-0.045)
--- NOTE | 2020-05-05 07:19 | EKG ---
Test Date: 2020-05-04 Test Time: 17:48:13 Automatic Centrifugal Station Operator: BP MEASUREMENT RESULTS: Intervals: Rate: 70 NE: QRSD: 72 QT: 382 QTc: 412 [place]: P: NE: QRS: 62 T: 39 INTERPRETIVE STATEMENTS: Atrial fibrillation Septal infarct, age undetermined Abnormal ECG Compared to ECG 01/25/2019 15:36:07 Myocardial infarct finding now present Sinus bradycardia no longer present Atrial premature complex(es) no longer present Electronically Signed On 05-05-20 07:18:06 CDT by Jesus Poe
[2020-05-05 08:37] VITALS: BP 168/110; TEMP 97.3
[2020-05-05] MEDS ORDERED: INFLUENZA VACCINE (for 3y+) 0.5 ML DOSE IMVAC ONE (09:00)
[2020-05-05] MEDS ORDERED: AMLODIPINE 10 MG TAB PO SCH (09:00)
[2020-05-05] MEDS: ENOXAPARIN 40 MG/0.4 ML SQ SCH (09:01)
[2020-05-05] MEDS: ASPIRIN 81 MG CHEWABLE TABLET PO SCH (09:01)
--- NOTE | 2020-05-05 12:57 | P.DS ---
Admission Date: 05/04/20 Discharge Date: 05/05/20 Primary Care Provider: none Disposition: ROUTINE DISCHARGE Discharge Condition: FAIR Reason for Admission: chest pain rule out - Problems (1) Chest pain Current Visit: Yes Status: Acute Qualifiers: Chest pain type: unspecified Qualified Code(s): R07.9 - Chest pain, unspecified (2) Chronic a-fib Current Visit: Yes Status: Acute (3) History of CVA (cerebrovascular accident) Current Visit: Yes Status: Acute (4) Hypertension Current Visit: No Status: Chronic Qualifiers: Hypertension type: essential hypertension Qualified Code(s): I10 - Essential (primary) hypertension Brief History of Present Illness: 84-year-old man with a history of chronic atrial fibrillation, hypertension presented to the emergency department with a complaint of substernal chest pain worse with exertion and relieved by rest. Medication noncompliance is reported. Patient was supposed to be on Eliquis but stopped taking it. Workup in the ED was unremarkable. EKG showed rate controlled atrial fibrillation, no ischemic changes. Initial troponin negative, chest x-ray unremarkable, COVID 19 test negative. Patient was hospitalized for ACS rule out. Hospital Course: Patient placed under observation with telemetry. Troponin trended negative. He was asymptomatic during the hospital stay. His blood pressure was somewhat elevated. Patient was started on amlodipine. He responded with improvement in her systolic pressure. ACS has been ruled out. Patient is discharged with antihypertensives, Eliquis also resumed. He will follow with Dr. Poe for arrangement for stress test. Vital Signs/Physical Exam: Temp Pulse Resp BP Pulse Ox 97.3 F 85 17 168/110 H 97 05/05/20 08:00 05/05/20 08:00 05/05/20 08:00 05/05/20 08:00 05/05/20 08:00 General: Alert, In no apparent distress, Oriented x3 HEENT: Mucous membr. moist/pink Neck: Supple, JVD not distended Respiratory: Clear to auscultation bilaterally, Normal air movement Cardiovascular: No edema, Normal S1 S2, Irregular heart rate/rhythm Capillary refill: <2 Seconds Gastrointestinal: Normal bowel sounds, Soft and benign, Non-distended, No tenderness Musculoskeletal: No swelling, No tenderness Integumentary: No rashes, No erythema Neurological: Normal strength at 5/5 x4 extr, Cranial nerves 3-12 intact Laboratory Data at Discharge: WBC 9.00 K/uL (4.3-10.9) 05/04/20 11:05 Hgb 14.2 g/dL (13.6-17.9) 05/04/20 11:05 Hct 42.7 % (39.6-49.0) 05/04/20 11:05 Plt Count 230 K/uL (152-406) 05/04/20 11:05 PT 12.4 SECONDS (9.5-12.5) 05/04/20 11:05 INR 1.08 05/04/20 11:05 Sodium 142 mmol/L (136-145) 05/04/20 11:05 Potassium 3.8 mmol/L (3.5-5.1) 05/04/20 11:05 BUN 14 mg/dL (7-18) 05/04/20 11:05 Creatinine 0.90 mg/dL (0.55-1.3) 05/04/20 11:05 Glucose 112 mg/dL (74-106) H 05/04/20 11:05 Magnesium 2.0 mg/dL (1.8-2.4) 05/05/20 04:14 Total Bilirubin 0.6 mg/dL (0.2-1.0) 05/04/20 11:05 AST 38 U/L (15-37) H 05/04/20 11:05 ALT 37 U/L (12-78) 05/04/20 11:05 Alkaline Phosphatase 109 U/L (45-117) 05/04/20 11:05 Troponin I < 0.02 ng/mL (0.0-0.045) 05/05/20 05:33 Triglycerides 91 mg/dL (<150) 05/05/20 04:14 Cholesterol 146 mg/dL (<200) 05/05/20 04:14 HDL Cholesterol 45 mg/dL (40-60) 05/05/20 04:14 Cholesterol/HDL Ratio 3.24 05/05/20 04:14 Home Medications: Amlodipine [Norvasc*] 10 mg PO DAILY #30 tab 05/05/20 Apixaban [Eliquis] 5 mg PO BID #60 tablet 05/05/20 Aspirin [Aspirin EC 81 MG] 81 mg PO DAILY #30 tablet. 05/05/20 lisinopriL [Lisinopril] 20 mg PO DAILY #30 tablet 05/05/20 New Medications: Aspirin [Aspirin EC 81 MG] 81 mg PO DAILY #30 tablet. Apixaban [Eliquis] 5 mg PO BID #60 tablet lisinopriL [Lisinopril] 20 mg PO DAILY #30 tablet Amlodipine [Norvasc*] 10 mg PO DAILY #30 tab Physician Discharge Instructions: Please call Dr. Poe's office at [phone] for arrangement for stress test. Diet: AHA Activity: Ad thomas Followup: Jesus Poe MD [ACTIVE - CAN ADMIT] - 1 Week NONE,NONE [Primary Care Provider] -
== END 2020-05-05 13:32 | disposition home or self-care (01) ==
LOC: ER 09:58 → ERHOLD 17:31 → 2ND 21:34
PROVIDERS: ADMIT Internal Medicine Nephrology; ATTEND Internal Medicine
DX: R07.9 Chest pain, unspecified (principal); I48.20 Chronic atrial fibrillation, unspecified; I48.92 Unspecified atrial flutter; I10 Essential (primary) hypertension; E78.5 Hyperlipidemia, unspecified; Z91.14 Patient's other noncompliance with medication regimen; Z86.73 Personal history of transient ischemic attack (TIA), and cerebral infarction without residual deficits; Z87.891 Personal history of nicotine dependence; Z20.822 Contact with and (suspected) exposure to COVID-19
CPT/HCPCS: 96365; 93005 ×2; 85025; 80048; 36415; 83735 ×2; 82550 ×2; 85610; 80061; 80076; 84443; 81003; 83036; 84484 ×4; 82553 ×2; 84439; 83880; 71045; 99285; U0003; J0360; J1650 ×2; G0378 ×3

== ENCOUNTER 2020-07-10 18:54 | Emergency (ER) | payer OTHER ==
--- OUTSIDE RECORDS SUMMARY | 2020-07-10 18:57 | XMS REPORT | Continuity of Care Document ---
:1935 Author Organization [facility] t Address [address] [place] [address] [address] [place] [address] Care Team Providers Name Role Phone Unavailable Unavailable Unavailable Problems This patient has no known problems. Allergies, Adverse Reactions, Alerts This patient has no known allergies or adverse reactions. Medications This patient has no known medications. Procedures This patient has no known procedures. Results This patient has no known results.
[2020-07-10 19:39] LABS: Absolute Lymphocytes (CBC) 0.6 K/uL (0.7-4.9); Basophils % 0.4 % (0-1.3); Hematocrit 40.3 % (39.6-49.0); Lymphocytes % 5.8 % (15.3-44.8); MPV 8.6 fL (7.6-11.3); RBC Red Blood Cell Count 4.77 M/uL (4.33-5.43)
[2020-07-10 19:52] LABS: Protime INR 1.21
[2020-07-10] MEDS ORDERED: ONDANSETRON 4 MG/2 ML VIAL ONE (20:02)
[2020-07-10 20:08] LABS: ALT/SGPT 236 U/L (12-78); Albumin 3.6 g/dL (3.4-5.0); Alkaline Phosphatase 193 U/L (45-117); BUN Blood Urea Nitrogen 15 mg/dL (7-18); Bicarbonate 26 mmol/L (21-32); Bilirubin Direct 1.7 mg/dL (0-0.2); Bilirubin Total 2.6 mg/dL (0.2-1.0); Glucose Level 140 mg/dL (74-106); Magnesium 2.1 mg/dL (1.8-2.4); NT PRO-BNP 1223 pg/mL (<450); Potassium 3.6 mmol/L (3.5-5.1); Protein, Total 7.4 g/dL (6.4-8.2); Sodium Level 146 mmol/L (136-145); Troponin (Emerg Dept Use Only) < 0.02 ng/mL (0.0-0.045)
[2020-07-10 20:11] LABS: AST/SGOT 399 U/L (15-37)
[2020-07-10 20:34] LABS: Urine Blood 1+ (Negative); Urine Glucose Negative (Negative); Urine Protein Trace (Negative)
--- NOTE | 2020-07-10 20:54 | RAD REPORT ---
EXAM DESCRIPTION: RAD - Chest Single View - 07/10/2020 8:15 pm CLINICAL HISTORY: CHEST PAIN COMPARISON: Portable May 04 TECHNIQUE: AP portable chest image was obtained 07/10/2020 8:15 pm . FINDINGS: Lungs are clear. Lung markings match comparison. Heart upper normal and vasculature is nor mal. No measurable pleural effusion and no pneumothorax. No acute bony abnormality seen. No acute aor tic findings suspected. IMPRESSION: No acute cardiopulmonary process. No significant change from comparison study.
--- NOTE | 2020-07-10 21:11 | EDPHYS ---
Physician Documentation [facility] Name: Moy White Age: 84 yrs Sex: Male : 1935 Arrival Date: 07/10/2020 Time: 18:58 Bed 18 Private MD: ED Physician Sukumar Santa HPI: 07/10 20:43 This 84 yrs old Male presents to ER via Ambulatory with complaints of Chest tw4 Pain > 30 y/o, Back Pain, Headache. 20:43 The patient or guardian reports chest pain that is located primarily in the anterior tw4 chest wall, left. Onset: today. The pain does not radiate. The chest pain is described as dull. Duration: The patient or guardian reports a single episode. Modifying factors: Pertinent positives: nausea, vomiting, The symptoms are alleviated by nothing. the symptoms are aggravated by nothing. Severity of pain: At its worst the pain was moderate in the emergency department the pain is unchanged. Historical: - Allergies: 18:59 No Known Allergies; ll1 - PMHx: 18:59 Hypertension; ll1 - PSHx: 18:59 None; ll1 - Immunization history:: Client reports having NOT received the Covid vaccine. Flu vaccine is not up to date. - Social history:: Smoking status: Patient/guardian denies using tobacco, but has a distant history of tobacco abuse. ROS: 20:43 Constitutional: Negative for fever, chills, and weight loss, Eyes: Negative for injury, tw4 pain, redness, and discharge, Respiratory: Negative for shortness of breath, cough, wheezing, and pleuritic chest pain, Abdomen/GI: Negative for abdominal pain, nausea, vomiting, diarrhea, and constipation, Back: Negative for injury and pain, MS/Extremity: Negative for injury and deformity. 20:43 Cardiovascular: Positive for chest pain, Negative for edema, orthopnea, palpitations, paroxysmal nocturnal dyspnea. Exam: 20:43 Constitutional: This is a well developed, well nourished patient who is awake, alert, tw4 and in no acute distress. Head/Face: Normocephalic, atraumatic. Cardiovascular: Regular rate and rhythm with a normal S1 and S2. No gallops, murmurs, or rubs. Normal PMI, no JVD. No pulse deficits. Respiratory: Lungs have equal breath sounds bilaterally, clear to auscultation and percussion. No rales, rhonchi or wheezes noted. No increased work of breathing, no retractions or nasal flaring. Back: No spinal tenderness. No costovertebral tenderness. Full range of motion. MS/ Extremity: Pulses equal, no cyanosis. Neurovascular intact. Full, normal range of motion. Neuro: Awake and alert, GCS 15, oriented to person, place, time, and situation. Cranial nerves II-XII grossly intact. Motor strength 5/5 in all extremities. Sensory grossly intact. Cerebellar exam normal. Normal gait. 20:43 Abdomen/GI: Inspection: abdomen appears normal, Bowel sounds: diminished, Palpation: moderate abdominal tenderness, in the epigastric area. 20:43 ECG was reviewed by the Attending Physician. tw4 Vital Signs: 19:07 BP 183 / 92; Pulse 98; Resp 17; Temp 98.9; Pulse Ox 95% ; Pain 9/10; ll1 19:44 BP 143 / 75; Pulse 85; Resp 16; Pulse Ox 99% ; Weight 63.5 kg; Height 5 ft. 2 in. rr5 (157.48 cm); 22:09 BP 177 / 105; Pulse 80; Resp 19; Pulse Ox 98% ; rr5 23:00 BP 173 / 95; Pulse 86; Resp 19; Pulse Ox 98% ; rr5 07/11 00:15 BP 163 / 91; Pulse 75; Resp 19; Pulse Ox 98% ; rr5 01:44 BP 161 / 85; Pulse 70; Resp 16; Pulse Ox 98% ; rr5 02:10 BP 177 / 110; Pulse 76; Resp 16; Temp 98; Pulse Ox 96% ; rr5 07/10 19:44 Body Mass Index 25.61 (63.50 kg, 157.48 cm) rr5 MDM: 07/10 19:18 Patient medically screened. tw4 07/11 07:08 Data reviewed: vital signs, nurses notes. Data interpreted: Pulse oximetry: tw4 Interpretation: normal. Counseling: I had a detailed discussion with the patient and/or guardian regarding: the historical points, exam findings, and any diagnostic results supporting the discharge/admit diagnosis. Medication response: morphine markedly relieved the patient's pain. Symptoms have improved. Response to treatment: the patient's symptoms have mildly improved after treatment. ED course: PT WILL REQUIRE HIGHER LEVEL OF CARE FOR GI CONSULTATION AND EVALUATION . 07/10 19:11 Order name: Basic Metabolic Panel [facility] 07/10 20:38 Interpretation: Normal except: NA 146; CL 113; GLUC 140; GFR 70. [facility] 07/10 19:11 Order name: CBC with Diff; Complete Time: 00:20 [facility] 07/10 20:39 Interpretation: Normal except: RDW 15.6; LYM% 5.8; DYLON% 85.1; NEUT A 8.7; LYMA 0.6. [facility] 07/10 19:11 Order name: LFT's [facility] 07/10 20:39 Interpretation: Normal except: AST 399; ALT 236; ALK 193; BILIT 2.6; BILID 1.7. [facility] 07/10 19:11 Order name: Magnesium [facility] 07/10 20:41 Interpretation: Within normal limits: MG 2.1. [facility] 07/10 19:11 Order name: NT PRO-BNP [facility] 07/10 20:39 Interpretation: Normal except: NT PRO-BNP 1223. [facility] 07/10 19:11 Order name: PT-INR; Complete Time: 20:38 [facility] 07/10 19:11 Order name: Troponin (emerg Dept Use Only) [facility] 07/10 20:41 Interpretation: Within normal limits: TROPED < 0.02. [facility] 07/10 19:11 Order name: XRAY Chest (1 view); Complete Time: 21:08 [facility] 07/10 20:34 Order name: Urine Dipstick-Ancillary; Complete Time: 20:38 EDMS 07/10 20:40 Interpretation: Normal except: UPROT Trace; UBLD 1+. [facility] 07/10 21:12 Order name: Manual Differential; Complete Time: 00:20 EDMS 07/10 23:33 Order name: SARS-COV-2 RT PCR; Complete Time: 00:20 EDMS 07/11 01:00 Order name: Lipase [facility] 07/10 19:11 Order name: EKG; Complete Time: 19:12 [facility] 07/10 19:11 Order name: Cardiac monitoring; Complete Time: 19:38 [facility] 07/10 19:11 Order name: EKG - Nurse/Tech; Complete Time: 19:38 [facility] 07/10 19:11 Order name: IV Saline Lock; Complete Time: 19:38 rr5 07/10 19:11 Order name: Labs collected and sent; Complete Time: 19:38 rr5 07/10 19:11 Order name: O2 Per Protocol; Complete Time: 19:38 rr5 07/10 19:11 Order name: O2 Sat Monitoring; Complete Time: 19:38 rr5 07/10 21:09 Order name: US Abdomen Limited tw4 07/10 21:09 Order name: CT Abd/Pelvis - IV Contrast Only tw4 EC/30 20:43 Rate is 78 beats/min. Rhythm is irregularly irregular. QRS [place] is Normal. [place] interval tw4 is normal. QRS interval is normal. QT interval is normal. T waves are Normal. No ST changes noted. Clinical impression: Atrial Fibrillation. Interpreted by me. Reviewed by me. Administered Medications: 19:44 Drug: Zofran (Ondansetron) 4 mg Route: IVP; Site: right antecubital; rr5 20:40 Follow up: Response: No adverse reaction rr5 22:08 Drug: morphine 4 mg {Note: rass 0.} Route: IVP; Site: right antecubital; rr5 23:00 Follow up: Response: No adverse reaction; RASS: Alert and Calm (0) rr5 07/11 02:10 Drug: Zofran (Ondansetron) 4 mg Route: IVP; Site: right antecubital; rr5 02:14 Follow up: Response: Other; prior to transfer rr5 02:14 Drug: morphine 4 mg {Note: rass 0.} Route: IVP; Site: right antecubital; rr5 02:15 Follow up: Response: No adverse reaction; RASS: Alert and Calm (0); prior to transfer rr5 Disposition: 07/11/20 00:24 Transfer ordered to [facility]. Diagnosis are Calculus of gallbladder and bile duct without cholecystitis with obstruction, Malignant neoplasm of gallbladder. - Reason for transfer: Higher level of care. - Accepting physician is Dr Gorman \T\[id number]. - Condition is Stable. - Problem is new. - Symptoms have worsened. Signatures: Dispatcher [employer] EDKierra Dougherty RN RN iw Sukumar Santa MD MD tw4 James Morton RN RN rr5 Audi, Lynsay, RN RN ll1 Corrections: (The following items were deleted from the chart) 07/10 22:39 21:24 CORONAVIRUS+MR.LAB.BRZ ordered. EDMS EDMS 23:44 21:10 Hospitalization Ordered by James Bernard MD for Observation. Preliminary iw diagnosis is Other chest pain; Rebound abdominal tenderness. Bed requested for Telemetry/MedSurg (observation). Status is Observation. Condition is Stable. Problem is new. Symptoms are unchanged. tw4 23:50 23:44 07/10/2020 21:10 Hospitalization Ordered by James Bernard MD for Observation. iw Preliminary diagnosis is Other chest pain; Rebound abdominal tenderness. Bed requested for Telemetry/MedSurg (observation). Status is Observation. Condition is Stable. Problem is new. Symptoms are unchanged. 07/11 00:23 07/10 23:50 07/10/2020 21:10 Hospitalization Ordered by James Bernard MD for tw4 Observation. Preliminary diagnosis is Other chest pain; Rebound abdominal tenderness. Bed requested for Telemetry/MedSurg (observation). Status is Observation. Condition is Stable. Problem is new. Symptoms are unchanged. 07/11 02:17 00:24 07/11/2020 00:24 Transfer ordered to [facility]. rr5 Diagnosis is Calculus of gallbladder and bile duct without cholecystitis with obstruction; Malignant neoplasm of gallbladder. Reason for transfer: Higher level of care. Accepting physician is Dr Gorman \T\[id number]. Condition is Stable. Problem is new. Symptoms have worsened. tw4
--- NOTE | 2020-07-10 21:11 | ER ---
Nurse's Notes [facility] Name: Moy White Age: 84 yrs Sex: Male : 1935 Arrival Date: 07/10/2020 Time: 18:58 Bed 18 Private MD: Diagnosis: Calculus of gallbladder and bile duct without cholecystitis with obstruction;Malignant neoplasm of gallbladder Presentation: 07/10 19:07 Chief complaint:. Chief complaint: Patient states: CP since last night. N/V with abd ll1 pain for 2 hours [employer]. Vomiting a large amount of brown liquid into trash can as walking into triage. No known fever. Coronavirus screen: Client denies travel out of the [place] in the last 14 days. At this time, the client does not indicate any symptoms associated with coronavirus-19. Ebola Screen: Patient denies travel to an Ebola-affected area in the 21 days before illness onset. Initial Sepsis Screen: Does the patient meet any 2 criteria? HR > 90 bpm. No. Patient's initial sepsis screen is negative. Does the patient have a suspected source of infection? Yes: Acute abdominal pain. Risk Assessment: Do you want to hurt yourself or someone else? Patient reports no desire to harm self or others. Onset of symptoms was July 09, 2020. 19:07 Method Of Arrival: Ambulatory ll1 19:07 Acuity: MARIAN 2 ll1 Triage Assessment: 19:30 General: Appears in no apparent distress. comfortable, Behavior is calm, cooperative, rr5 appropriate for age. Historical: - Allergies: 18:59 No Known Allergies; ll1 - PMHx: 18:59 Hypertension; ll1 - PSHx: 18:59 None; ll1 - Immunization history:: Client reports having NOT received the Covid vaccine. Flu vaccine is not up to date. - Social history:: Smoking status: Patient/guardian denies using tobacco, but has a distant history of tobacco abuse. Screenin:38 Abuse screen: Denies threats or abuse. Denies injuries from another. Nutritional rr5 screening: No deficits noted. Tuberculosis screening: No symptoms or risk factors identified. Fall Risk IV access (20 points). Total Rae Fall Scale indicates No Risk (0-24 pts). Assessment: 19:30 General: Appears in no apparent distress. comfortable, Behavior is calm, cooperative, rr5 appropriate for age. Pain: Complains of pain in chest and abdomen Pain does not radiate. Pain currently is 8 out of 10 on a pain scale. Quality of pain is described as aching, Pain began gradually, Is intermittent. Neuro: Level of Consciousness is awake, alert, obeys commands, Oriented to person, place, time. Cardiovascular: Reports chest pain, Capillary refill < 3 seconds Patient's skin is warm and dry. Respiratory: Airway is patent Respiratory effort is even, unlabored, Respiratory pattern is regular, symmetrical. GI: Abdomen is round non-distended, Reports upper abdominal pain, nausea, vomiting. : No signs and/or symptoms were reported regarding the genitourinary system. EENT: No signs and/or symptoms were reported regarding the EENT system. Derm: Skin is intact, is healthy with good turgor, Skin temperature is warm. Musculoskeletal: Capillary refill < 3 seconds. 20:40 Reassessment: Patient appears in no apparent distress at this time. Patient is alert, rr5 oriented x 3, equal unlabored respirations, skin warm/dry/pink. awaiting for results. 22:00 Reassessment: Patient appears in no apparent distress at this time. Patient is alert, rr5 oriented x 3, equal unlabored respirations, skin warm/dry/pink. complaining of abdominal pain, ED provider aware with order made carried out. 23:00 Reassessment: Patient appears in no apparent distress at this time. Patient is alert, rr5 oriented x 3, equal unlabored respirations, skin warm/dry/pink. Patient states symptoms have improved. 23:30 Reassessment: Patient appears in no apparent distress at this time. Patient is alert, rr5 oriented x 3, equal unlabored respirations, skin warm/dry/pink. for transfer to other facility for GI consult. 07/11 00:30 Reassessment: Patient appears in no apparent distress at this time. Patient is alert, rr5 oriented x 3, equal unlabored respirations, skin warm/dry/pink. went to restroom steady gait noted. 01:50 Reassessment: report given to cecy JONES of [facility]. rr5 02:15 Reassessment: Patient appears in no apparent distress at this time. Patient is alert, rr5 oriented x 3, equal unlabored respirations, skin warm/dry/pink. report given to [facility] awake alert vital signs taken and recorded. stat medication prior to transfer given as per order. Vital Signs: 07/10 19:07 BP 183 / 92; Pulse 98; Resp 17; Temp 98.9; Pulse Ox 95% ; Pain 9/10; ll1 19:44 BP 143 / 75; Pulse 85; Resp 16; Pulse Ox 99% ; Weight 63.5 kg; Height 5 ft. 2 in. rr5 (157.48 cm); 22:09 BP 177 / 105; Pulse 80; Resp 19; Pulse Ox 98% ; rr5 23:00 BP 173 / 95; Pulse 86; Resp 19; Pulse Ox 98% ; rr5 07/11 00:15 BP 163 / 91; Pulse 75; Resp 19; Pulse Ox 98% ; rr5 01:44 BP 161 / 85; Pulse 70; Resp 16; Pulse Ox 98% ; rr5 02:10 BP 177 / 110; Pulse 76; Resp 16; Temp 98; Pulse Ox 96% ; rr5 07/10 19:44 Body Mass Index 25.61 (63.50 kg, 157.48 cm) rr5 ED Course: 07/10 18:58 Patient arrived in ED. bp1 18:58 Arm band placed on. ll1 19:08 James Morton RN is Primary Nurse. rr5 19:09 Triage completed. ll1 19:09 Patient placed in an exam room, on a stretcher. ll1 19:15 EKG done, by ED staff, reviewed by Sukumar Santa MD. rr5 19:18 Sukumar Santa MD is Attending Physician. tw4 19:20 Inserted saline lock: 20 gauge in right antecubital area, using aseptic technique. rr5 Blood collected. 19:30 Patient has correct armband on for positive identification. Placed in gown. Bed in low rr5 position. Call light in reach. Side rails up X2. pvc monitor on. Pulse ox on. NIBP on. 20:15 XRAY Chest (1 view) In Process Unspecified. EDMS 21:10 James Bernard MD is Hospitalizing Provider. tw4 22:36 US Abdomen Limited In Process Unspecified. EDMS 23:23 CT Abd/Pelvis - IV Contrast Only In Process Unspecified. EDMS 23:32 Initiated transfer at [facility] with Shahana Betancourt. Stated she would work on the tt3 request and call back. 07/11 00:18 Shahana called back with Dr. Gorman to speak with Dr. Santa regarding the transfer tt3 request. 01:11 Shahana Betancourt gave admin approval. The pt is going to [facility] to [place] [address], tt3 Bed 1527. The accepting physician is Dr. Giles and they accepted at 01:00. Nurse to call report to . Face sheet, covid results and MOT to be faxed to per Shahana's request. 02:16 No provider procedures requiring assistance completed. Patient transferred, IV remains rr5 in place. intact, No redness/swelling at site. Administered Medications: 07/10 19:44 Drug: Zofran (Ondansetron) 4 mg Route: IVP; Site: right antecubital; rr5 20:40 Follow up: Response: No adverse reaction rr5 22:08 Drug: morphine 4 mg {Note: rass 0.} Route: IVP; Site: right antecubital; rr5 23:00 Follow up: Response: No adverse reaction; RASS: Alert and Calm (0) rr5 07/11 02:10 Drug: Zofran (Ondansetron) 4 mg Route: IVP; Site: right antecubital; rr5 02:14 Follow up: Response: Other; prior to transfer rr5 02:14 Drug: morphine 4 mg {Note: rass 0.} Route: IVP; Site: right antecubital; rr5 02:15 Follow up: Response: No adverse reaction; RASS: Alert and Calm (0); prior to transfer rr5 Intake: Outcome: 07/10 21:10 Decision to Hospitalize by Provider. tw4 07/11 00:24 ER care complete, transfer ordered by . tw4 02:16 Transferred by ground EMS to [facility], Transfer form completed. rr5 02:16 Condition: stable 02:16 Instructed on the need for transfer. 02:17 Patient left the ED. rr5 Signatures: Dispatcher [employer] Sukumar Boothe MD MD tw4 James Morton RN RN rr5 Joel Huntley, RN RN ll1 Riana Concepcion bp1 Trim, Jose Ramon tt3
[2020-07-10 21:19] LABS: Blood Morphology Comment NOT SEEN (NOT SEEN); Platelet Estimate ADEQ
[2020-07-10] MEDS ORDERED: MORPHINE 4 MG/ML SYR ONE (22:18)
[2020-07-11 02:25] VITALS: TEMP 98.9
[2020-07-11 02:28] VITALS: O2SAT 98
[2020-07-11] MEDS ORDERED: ONDANSETRON 4 MG/2 ML VIAL ONE (02:29)
[2020-07-11] MEDS ORDERED: MORPHINE 4 MG/ML SYR ONE (02:29)
[2020-07-11 02:33] VITALS: BP 161/85
[2020-07-11 04:18] LABS: Lipase > 30000 U/L (73-393)
--- NOTE | 2020-07-11 10:41 | RAD REPORT ---
EXAM DESCRIPTION: US - Abdomen Exam Limited - 07/10/2020 10:36 pm CLINICAL HISTORY: Abdominal pain. COMPARISON: 2019 FINDINGS: 4.3 centimeter soft tissue mass is present within the gallbladder fundus. 1.6 centimeter gallstone is seen. The gallbladder wall is not thickened. The Common bile duct measures 9 millimeters IMPRESSION: 4.3 centimeter soft tissue mass within the gallbladder may represent neoplasm Cholelithiasis Dilated common bile duct
--- NOTE | 2020-07-11 13:53 | RAD REPORT ---
EXAM DESCRIPTION: CT - Abdomen Pelvis W Contrast - 07/11/2020 4:58 am COMPARISON: CT abdomen pelvis September 23, 2019 CLINICAL HISTORY: [facility] MAIN ABD PAIN TECHNIQUE: CT of the abdomen and pelvis was acquired with IV contrast material. Coronal and sagitt al reconstructions were obtained. Automated exposure control was utilized on this examination as a dose lowering technique. FINDINGS: Lung bases: Mild cardiomegaly. Liver: A 2.3 cm enhancing and partially calcified lesion is noted in the hepatic segment 7 on series 401 image 22. Gallbladder and biliary: There is a 5.7 x 4.3 x 3.0 cm heterogeneously enhancing lesion of the anteri or gallbladder wall. An additional 1.6 cm lesion or stone is noted posteriorly. Mild intrahepatic mariana iary ductal dilatation. A few dilated ducts are noted adjacent to the enhancing lesion of the posteri or right liver. Pancreas: Peripancreatic edema and fat stranding is present. Spleen: Normal. Adrenal glands: Normal adrenal glands. Kidneys: A small right renal cyst is noted. A small left renal cortical infarct is noted. Stomach and Small Bowel: There is a 5.3 x 2.4 x 3.2 cm enhancing lesion of the gastric fundal wall po steriorly. Urinary bladder: Normal. Prostate/Male Urogenital: The central prostate is enhancing and the enhancing portion measures 3.1 cm . Colon and Appendix: Mild colonic diverticulosis. No evidence of appendicitis. Retroperitoneum and lymph nodes: There is a 3.5 x 1.8 x 4.7 cm region of matted lymph nodes in the pe riportal region on series 501 image 29. Vascular: Moderate multivessel calcified atherosclerosis. Peritoneal cavity: Peripancreatic fluid is noted and fluid layers anterior to the left retroperitoneu m/ in the left paracolic gutter. Musculoskeletal and soft tissues: Soft tissues are unremarkable. Lumbar spondylosis is present. No ag gressive bone lesions. No compression fracture. IMPRESSION: 1. 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 There is no organizing fluid collection at this time. 2. Enhancing lesion of the anterior gallbladder is concerning for gallbladder carcinoma. Mild intrahe patic biliary ductal dilatation is present with focal dilatation adjacent to the posterior right hepa tic enhancing lesion. This could represent a metastasis. 3. An enlarged right periportal lymph node confluence could represent metastatic disease. 4. An enhancing lesion/thickening of the gastric fundus is concerning for neoplasm. 5. A 3.1 cm region of enhancement of the central prostate could represent benign prostatic hyperplasi a or prostate neoplasm. Electronically signed by: Meet Menezes MD 07/10/2020 11:58 PM CDT Due to temporary technical issues with the PACS/Fluency reporting system, reports are being signed by the in house radiologists without review as a courtesy to insure prompt reporting. The interpreting radiologist is fully responsible for the content of the report.
--- NOTE | 2020-07-13 12:05 | EKG ---
Test Date: 2020-07-10 Test Time: 19:09:42 Senior Telecommunications Technician: RR MEASUREMENT RESULTS: Intervals: Rate: 78 NC: QRSD: 78 QT: 368 QTc: 419 [place]: P: NC: QRS: 39 T: 31 INTERPRETIVE STATEMENTS: Atrial fibrillation Abnormal ECG Compared to ECG 05/04/2020 17:48:13 Myocardial infarct finding no longer present Electronically Signed On 07-13-20 11:55:02 CDT by Jesus Poe
== END 2020-07-11 02:17 | disposition short-term general hospital (02) ==
LOC: ER 18:54
DX: K80.71 Calculus of gallbladder and bile duct without cholecystitis with obstruction (principal); C23 Malignant neoplasm of gallbladder; Z20.822 Contact with and (suspected) exposure to COVID-19; I10 Essential (primary) hypertension
CPT/HCPCS: 93005; 85025; 80048; 36415; 83735; 85610; 80076; 81003; 84484; 83690; 83880; 74177; 71045; 76705; 96375; 96374; 99285; U0003; Q9967; J2405 ×2

== ENCOUNTER 2020-09-16 08:30 | Emergency (ER) | payer OTHER ==
--- OUTSIDE RECORDS SUMMARY | 2020-09-16 08:34 | XMS REPORT | Continuity of Care Document ---
:1935 Author Organization [facility] t Address [address] [place] [address] Care Team Providers Name Role Phone JOCELYN AMBRIZ Attending Clinician Unavailable Terrence TABOR, Jocelyn Attending Clinician CIRILO GILES Attending Clinician Unavailable Cirilo Giles MD Attending Clinician Jessica Reyes MD Attending Clinician [phone] Shawn Gorman MD Attending Clinician Marbella Beth MD Attending Clinician Ivett Manley MD Attending Clinician Mary Gray Attending Clinician MARBELLA BETH Admitting Clinician Unavailable Payers Payer Name Policy Type Policy Effective Date Expiration Date Sour ce Number MEDICARE PART A \T\ B [id number] - MEDICARE MEDICAREMEDICARE A [id number] KARINE Saavedra [id number] 1999-P 00:00:00 [facility] Problems Condition Condition Condition Status Onset Resolution Last Treating Co mments Source Name Details Category Date Date Treatment Clinician Date Choledocho Choledocho Disease Active [facility] lithiasis lithiasis 07-11 Will s - 00:00: Medical [address] [place] [address] Abdominal Abdominal Disease Active [facility] pain pain 07-11 - 00:: Medical [address] [place] Gallbladde Gallbladde Disease Active [facility] r mass r mass 07-11 - :: Medical [address] [place] Allergies, Adverse Reactions, Alerts Allergy Allergy Status Severity Reaction(s) Onset Inactive Treating Comm ents Source Name Type Date Date Clinician Penicill Drug Active Other (See dizziness [facility] ins Allergy Comments) 07-11 - 00:: Medical [address] [place] Social History Social Habit Start Date Stop Date Quantity Comments Source History of User of smokeless [facility] tobacco use tobacco [facility] Sex Assigned At [facility] Tobacco use and 2020-07-13 2020-07-13 Former user [facility] - exposure 00:00:00 00:00:00 [facility] Smoking Status Start Date Stop Date Source Former smoker 2020-07-13 00:00:00 2020-07-13 00:00:00 [facility] Medications Ordered Filled Start Stop Current Ordering Indication Dosage Frequency Signature Comments Components Source Medication Medication Date Date Medication? Clinician (SIG) Name Name amLODIPine 2020- No 5mg QD Take [address] [facility] (NORVASC) 5 6-04 07-04 tablet (5 Catrachita kes - MG tablet 00:00: 23:59 mg total) Me dical 00 :00 by mouth Center daily for 30 days. lisinopriL 2020- No 20mg QD Take [address] [facility] (PRINIVIL,Z 6-04 07-04 tablet (20 L ukes - ESTRIL) 20 00:00: 23:59 mg total) M edical MG tablet 00 :00 by mouth Center daily for 30 days. apixaban Yes 5mg Q.5D Take [address] [facility] (Eliquis) 5 6-03 by mouth 2 [place] kes - mg Tab 16:32: (two) Medical tablet 13 times Center daily. HYDROcodone 2020- No 1{tbl} Take [address] -acetaminop 6-03 06-10 tablet by Catrahcita kes - hen (NORCO 00:00: 23:59 mouth Medic al 5-325) 00 :00 every 4 Center 5-325 mg (four) per tablet hours as needed (for severe abdominal pain) for up to 7 days. Max Daily Amount: 6 tablets Vital Signs Vital Name Observation Time Observation Value Comments Source Systolic blood 2020-07-14 08:08:00 168 mm[Hg] [facility] Diastolic blood 2020-07-14 08:08:00 80 mm[Hg] [facility] Heart rate 2020-07-14 08:08:00 72 /min [facility] Body temperature 2020-07-14 08:08:00 36.61 [facility] Respiratory rate 2020-07-14 08:08:00 18 /min [facility] Oxygen saturation in 2020-07-14 08:08:00 93 /min [facility] Arterial blood by Medical Ce nter Pulse oximetry Body height 2020-07-13 13:00:00 157.5 cm [facility] Body weight 2020-07-11 03:48:00 66.8 kg [facility] BMI 2020-07-11 03:48:00 26.94 kg/m2 [facility] Procedures Procedure Date / Time Performing Clinician Source Performed REPORT OF PROCEDURE - 2020-07-29 12:15:26 Andrea Gray [facility] REPORT OF PROCEDURE - 2020-07-29 11:28:57 Andrea Gray [facility] CBC (HEMOGRAM ONLY) 2020-07-14 03:59:00 Barbi Gorman [facility] COMPREHENSIVE METABOLIC 2020-07-14 03:58:00 Barbi Gorman [facility] TSH/FREE T4 IF INDICATED 2020-07-14 03:58:00 Florinda Waters [facility] NM MYOCARDIAL PERFUSION 2020-07-13 15:55:[address] [facility] - PET/CT (REST & STRESS) [facility] enter TREADMILL 2020-07-13 15:30:34 Unknown, Hl7 [facility] TOLERANCE(NON-NUCLEAR Medical Ce nter TREADMILL) ECG 12-LEAD 2020-07-13 15:16:00 Unknown, Hl7 [facility] COMPREHENSIVE METABOLIC 2020-07-13 10:28:00 Barbi Gorman [facility] CBC (HEMOGRAM ONLY) 2020-07-13 10:28:00 Sherif Barbi Escobar [facility] 2D ECHO W/ DOPPLER 2020-07-13 09:06:21 Florinda Waters [facility] (CW/PW/COLOR) [facility] ECG 12-LEAD 2020-07-12 22:55:06 Unknown, Hl7 [facility] ECG 12-LEAD 2020-07-12 22:53:09 Unknown, 7 [facility] XR CHEST 1 VIEW 2020-07-12 22:40:00 Moody Moreno [facility] es - PORTABLE/BEDSIDE Medical Center HIGH SENSITIVITY TROPONIN I 2020-07-12 22:34:00 Moody Moreno [facility] FINE NEEDLE ASPIRATE (FNA) 2020-07-12 17:44:49 Marina, [facility] FINE NEEDLE ASPIRATION BY 2020-07-12 17:44:00 Marina, [facility] [place] ERCP 2020-07-12 17:42:00 Marina, [facility] FINE NEEDLE ASPIRATE (FNA) 2020-07-12 17:03:19 Marina, [facility] FINE NEEDLE ASPIRATION BY 2020-07-12 17:03:00 Marina, [facility] UPPER ENDOSCOPY,FNA 2020-07-12 16:20:00 Marina, [facility] W/ULTRASOUND Medical Center ERCP,PAPILLOTOMY 2020-07-12 16:20:00 Marina, [facility] PROCEDURE W/ C-ARM 2020-07-12 16:20:00 Marina [facility] ERCP,BALLOON SWEEPING 2020-07-12 16:20:00 Marina, [facility] ERCP,BILIARY STENT 2020-07-12 16:20:00 Marina [facility] CARCINOEMBRYONIC ANTIGEN 2020-07-12 12:52:00 Florecita Roberts [facility] (CEA) [facility] CARBOHYDRATE ANTIGEN 19-9 2020-07-12 12:52:00 Florecita Roberts [facility] (CA 19-9) [facility] ECG 12-LEAD 2020-07-12 11:38:45 Florinda Waters [facility] CT ABDOMEN - PANCREAS 2020-07-11 20:34:00 Abu-Wing Rosa [facility] LIPASE 2020-07-11 15:14:00 Gagandeep Cotter [facility] SARS-COV2/RT-PCR ([facility] & 2020-07-11 15:07:[address] [facility] - REF LABS) [facility] MR ABDOMEN WO CONTRAST MRCP 2020-07-11 11:20:[address] [facility] CBC W/PLT COUNT & AUTO 2020-07-11 06:28:00 Haider Beth [facility] COMPREHENSIVE METABOLIC 2020-07-11 06:28:00 Haider Beth [facility] LACTIC ACID, VENOUS 2020-07-11 06:28:[address] [facility] PROTHROMBIN TIME/INR 2020-07-11 06:28:[address] [facility] REPORT OF PROCEDURE - 2020-07-11 00:00:00 Provider, Omar [facility] ENDOSCOPY SCAN Scanning [facility] Plan of Care Planned Activity Planned Date Details Comments Source Future Scheduled 2020-10-12 INFLUENZA VACCINE (#1) C HI [facility] - Test 00:00:00 [code = INFLUENZA Medical Ce nter VACCINE (#1)] Future Scheduled 2020-02-[address] [facility] - Test 00:00:00 (12+) [code = Medical Center DEPRESSION SCREENING (12+)] Future Scheduled 2020-02-12 FALLS RISK SCREENING [facility] - Test 00:00:00 [code = FALLS RISK Medical C enter SCREENING] Future Scheduled 2000-09-[address] [facility] - Test 00:00:00 WELLNESS (YEAR 2 or Medical Center FIRST YEAR if no IPPE) [code = MEDICARE ANNUAL WELLNESS (YEAR 2 or FIRST YEAR if no IPPE)] Future Scheduled 1999-10-01 PNEUMOCOCCAL 65+ YRS [facility] - Test 00:00:00 (1 of 1 - Medical Center [id number] PCV13) [code = PNEUMOCOCCAL 65+ YRS (1 of 1 - [id number] PCV13)] Future Scheduled 1984 SHINGLES VACCINES ([address] [facility] - Test 00:00:00 of 2) [code = SHINGLES Medic al Center VACCINES (1 of 2)] Future Scheduled 1953 DTAP/TDAP/TD VACCINES [facility] - Test 00:00:00 (1 - Tdap) [code = Medical C enter DTAP/TDAP/TD VACCINES (1 - Tdap)] Future Scheduled 1946 COVID-19 VACCINE (1) [facility] - Test 00:00:00 [code = COVID-[address] VACCINE (1)] Encounters Start End Encounter Admission Attending Care Care Encounter Source Date/Time Date/Time Type Type Clinicians Facility Department ID 2020-08-31 2020-08-31 Outpatient ANNE AMBRIZ [facility] [id number] [facility] 11:06:52 12:03:30 [facility] 2020-08-10 2020-08-10 Outpatient T[facility]ENCE [facility] [id number] [facility] 08:52:21 10:10:46 [facility] Results Test Test Test Results Result Source Description Time Comments Comments Treadmill 2020- Interface, External Ris In - [address] [facility] tolerance(Non 07-18 10:18 AM CDTProtocol Name [facility] - -Nuclear 10:18 Time In Exercise Phase 00:01:00 Max. Medical Treadmill) :10 Systolic BP 148 mmHgMax Diastolic BP 80 Center mmHgMax Heart Rate 86 BPMMax Predict ed Heart Rate 135 BPMReason For Termina tion Predetermined end point Reason for T est Pre Op Cardiac Clearance Target HR Formula (220 - Age)*100% Arrhythmias ventricular premature beats atrial premature beatsResting ECG Atrial fibrillation ST Changes No Significa nt Changes Overall Impression Normal st ress ECG Chest Pain none HR Response To Exercise BP Response To Exercise AMLODIPINEhydralazineLABETALOLLISINO PRILC onfirmed by fellow Titi Ynaez (2022) on 07/13/2020 4:00:14 PMConfirm ed by MD ALEKSEY, CHRIST ([id number]) on 10:18:04 AM Fine Needle Aspirate by Clinician 2020-07-14 19:01:00 Test Item Value Reference Range Interpretation Comme nts Case Report (test code = 104) Medical Cytology Report Case: [id number] Authorizing Provider: Andrea Gray Collected: 07/12/2020 05:44 PM Ordering Location: [address] Received: 07/12/2020 06:52 PM Service Pathologist: Pierre Paulson MD Specimen: Bile, Bile aspirate DIAGNOSIS (test code = 3220) w1leiZVxUKQqi1hxBLZyeHLgFgVrPkQvQwSfAv p cdWMxIHtccnRmMVxlcGljOTIwMlxhbnNpXHNwbH CdI9VzgxfoVTapPR6hXI2mwQryyHEqoLDwRBOkU bXlr7haq177zAUpf3ftPPPNyoigoBa2rWtsN51g b9M4DpjhZ09wpLSjQTrsxKOuwxmkbpRgXDBUGJH eSubBFSVzFRLIXS0HQGvPBea8VOSqbjOdZIXcDK VxEO8IFJ4VEFmYSiNKGOQXKAoPKpHHRTZOGKgTS EKQQWpqQCH1f3hhsJVdNLPprEVmQNDlZSgytfXx OQPuEibqyvuxDECrMYD0ipPaBZKjSYepJCCoVMb pCa5jvECcfFtiTeWoFZTzb0nvjqGCfqtvoXx0q6 owSTQjEwE6sKNdJOjuB3sffmFwhFKzWLAfHCl7e P81VWQlbD2leWLxKFtnmaTvQnI3AWwcPPHaEpH0 EOUanHEjDSNoM9wlCJXvCGxlPDFjIEzbpTFrFSF 9xUdru7V1cKCuuXWrbDouKqTvEqQgCpJBg1OpSP f3mUyqF8YoDDReHjR2fKLdHYNtGTdiURIvYQAek iB5zU30XJlupaF1oPRzx1Iyj72xb788sN9slNRg NGR9RQIwNWNxsNJsJYAjLJN6YMRhlAZnM8ugBEA tEX2smgzhIBjuHChgQWKacBZ5YUIriCQdM7QwMH WgTSvjDOKneds1FuGxHi6qgWMiwLfwXIdjh6fed 1kpcGKoKvx5VEYdCnQuCzshHDcqj2Kaz0fyTVMv at6oDML7jQIuuIfxw0J7cYWwTJWthNAkYTDvTA2 nmOXxVOTflT6pwuunCIVvGvBbezrfAIHkmKlovr HjZi5vwZhuSSW9UHmcX2lbgW7iOyL4BTheL3dov K1yBRs9ZSguNVZoeJM8fbD5VFAspIHeU1DzxK8f JQNrMX5axiv8a7iiOJM1PYbnDIVbDdB0qvU8TOC wcZYeOHQruMkcOCoiu630TKX7GjPkLWUeh2DhU5 WbsCfjE67uxHgqV46vRIPbmMvapD1lpDgnhC2hU lMwLrAlGCzjyQygNA0zYLMvW8kwnOAsZUQeYDOh M0ctLeMdfX0ojPzgQNjrxnWbTGXrVgt5TQIvoFC eSDUoOrq4ALKsMWQlL76yfuybFGV6yN4es9prv3 UjTKhfCLJ8WAPcp44bSMesqtL3GFjbXa2wWSBhB Kj8FQrfqRGcxL5= COMMENT (test code = 3359) y5nceVVqXCWwsUN3KsHsNUMvx2bxn0UiqVUevDD eJBeqfEMbedNkrc03mJN3hD34EL2iVCHnQqI9DJ KquzH8Ujh8PAXqWCVonCIeF665k0scj1aytiXuf TE0oLnxXELxMQBwOCodNSQjAyDrIVcuOUQpKCLd OGRzyUXieCC2zB6za5e2DDXet4YuUrNoDUDfDMf 8OekeYWO1 CPT Code(s) (test code = 3579) f4wjnQGyPRMbjLZ0ZwGfKNYas8hiv6CgtIZt cGF wSRknmRCxzjGssd68jLU3oY03ST6mXMRoArR1MM FogxR2Pup9CYUnRJIlrHAsO360j0yfi0dgufTfw CT3cBbnCLVcXMHpJDqoHMRuUsJkWClcARvrmMBb fQ== CLINICAL DATA (test code = 3353) d6nyoYJyCIJcmZG2LbYsVPTdu6rog3HorX BncGF bPXiddXPxybAtlk25wEJ1qO50FG8wMRIqElZ7QR EgtdT4Mwx6XEMjALKywFLiD796z6rzx6pyqtWle OM7lEkfJMLtQXYkROwuDDNrXzEaVBSTJBkdxKgt hQ4pkS4jBMCblYPfvD2qsIEeg5NtZQGpBG9cnJF vDzC6NmDmW61gS5GylJYcVXEiEVPknHInwqxnGu akORFhCV04FDCypeJtkZGbtH5gaYruBJH1 SPECIMEN SOURCE (test code = 3377) w8ityVWxQHJnfTG4ZrItYVNaw3uta6Ie dHBncGF vDRxeiEZwyoSfvd33fDU4sK95YB3eRQXuMfB2ZG UyakL4Ldt8GINqQIYqeTPxK394t9met0lsqqIhl VV6jXjiWVDgGEXqSAmyKYJgSwOaWihDSAOASQPA RFxwYXJ9 GROSS DESCRIPTION (test code = 3366) o5rfkPNqGBRzcAJ9UoZcSNWqu6piw6 BsdHBncGF wOMzrbDVcqdNrii37mUF0zM81UG2xWGHqNmM7FH JuzxD6Myi5GKQiBLQdsJPmQ538g1pri2jmerPbs GB8qFcrICPgDKFeGPnxENLpLcStAoKrELr5RDCk QtVfqLyxS8r8l7JoC6bfwgNmRHYycDD6uNNnXAI kjCWrMKcspDRrnZXvSWVbXLRrmJIfc6JoeoTvCY Bhcn0= MICROSCOPIC DESCRIPTION (test code = y8nyjDUaBQGkgZA4EgQfQIRis4jve4 BsdHBncGF 3371) wVPwqzZWklpBgec16xKM8pM88PF6oPMIbRhO8UD AcupF4Jya5JFYyCGAkmBJkM236n2ebo3cldgUpn QZ7mBoqBCFrUFNaOSjaKQNlFgXcAAHmPi4yyMQx LiBccGFyfQ== Gross assessment was performed at (test [facility] enter, code = 2777) Department of Pathology, [address] [place] [address], Technical component was performed at [facility] er, (test code = 2778) Department of Pathology, [address] [place] [address], Professional component was performed at [facility] C enter, (test code = 2779) Department of Pathology, [address] [place] [address], [facility] BY [id number] 19:01:00Medical Cytology Report Case: [id number] Authorizing Provider: Andrea Gray Collected: 07/12/2020 05:44 PM Ordering Location: [address] Received: 07/12/2020 06:52 PM Service Pathologist: Pierre Paulson MD Specimen: Bile, Bile aspirate BILE FLUID (CYTOSPINS): - NO MALIGNANT CELLS IDENTIFIED Signing Pathologist Direct Phone Line: [phone] signed by Pierre Paulson MD on 07/14/2020 at 7:00 PMPlease see cytopathology case [id number] with portocaval lymph node, sampled; 4.2 cm gallbladder mass; bile sent for cytologyBILE FLUIDReceived 20 ml cytorich red fixative sample; prepared 4 cytospins Performed. [facility], Department of Pathology, [address] [place] [address], [facility], Department of Pathology, [address] [place] [address], [facility], Department of Pathology, [address] [place] [address], ELMW NEEDLE ASPIRATION BY [id number] 18:52:00Medical Cytology Report Case: [id number] Authorizing Provider: Andrea Gray Collected: 07/12/2020 05:03 PM Ordering Location: [address] Received: 07/12/2020 06:52 PM Service Pathologist: Pierre Paulson MD Specimen: Lymph Node, Amadeo Caval lymph node FNA in CRR LYMPH NODE, PORTOC AVAL, FNA BY CLINICIAN (CYTOSPINS AND CELL BLOCK OF ASPIRATE): - ADENOCARCINOMA (SEE COMMENT)Signing Pathologist Direct Phone Line: [phone] signed by Pierre Paulson MD on 07/14/2020 at 6:52 PMNo background lymphoid tissue is seen. Patient has a 5.0 cm gallbladder mass, abutting the hepatic flexure of the colon. Immunostains and imaging suggest a biliary primary.Please see cytopathology case [id number], [id number], [id number], [id number] x 3EUS with portocaval lymph node, sampled; 4.2 cm gallbladder mass; bile sent for cytology LYMPH NODE, PORTOCAVAL, FNA Received 20 ml cytorich red fixative sample; prepared 4 cytospins and cell block(A2) - cell block fixed in formalin at 10:40 am on 07/13/20Performed. The interpretation of this case included the use of immunohistochemistry or special stains.Ck7- diffuse rggcggvqIj31- focal positiveCDX2- svianxfyZa27- focal positiveControl Slides Examined: In-house known positive controls were evaluated along with the test tissue. These control slides run alongside of the patients sample show appropriate staining. Internal positive and negative controls when available are evaluated Immunohistochemistry technical testing was performed at [facility], Pathology Laboratory where it was developed and its performance characteristics were determined. It has not been cleared or approved by the U.S. Food and Drug Administration. The FDA has determined that such clearance or approval is not necessary. The test is used for clinical purposes. It should not be regarded as investigational or for research. This laboratory is certified under the Clinical Laboratory Improvement Amendments of 1988 (CLIA-88) as qualified to perform high complexity clinical laboratory testing.[facility], Department of Pathology,[address] [place] [address], [facility], Departmentof Pathology, [address] [place] [address], [facility], Department of Pathology, [address] [place] [address], Kifzpmspwflj antigen 19-9 (CA 19-9)2020-07-14 16:07:00 Test Item Value Reference Interpretation Comments Range CA 19-9 (test code 38 U/mL <34 H This man t was = 62380-1) performed using the Siemens Chemiluminescen t method.Values obtained from different assay methods cannot be used interchangeably .CA19- 9 levels, regar dless of value, radha d not be interpreted as absoluteevidenc e of the presence or absence of dise ase. WINSTON (test code = Performing Lab WINSTON) [facility] [address] [place] [address] Ignacio Blake MD, PhD, RAYMUNDO Lab Interpretation Abnormal (test code = 26984-3) [facility], CARDIAC PERF REST AND [id number] 09:42:00DrXimena Cordoba for exam:->pre-op risk stratification [facility] : 1935 Sex: MFINAL REPORT PROCEDURE: MYOCARDIAL PERFUSION PET IMAGING (Rest/Stress) CPT CODE: 20649 INDICATION: Preoperative risk stratification CARDIOVASCULAR PROFILE:CAD History: NoneSymptoms: Chest painRisk Factors: Tobacco use, CVA, hypertension, atrial fibrillationBMI: 26.9Medications: Amlodipine, hydralazine, labetalol, lisinopril STRESS PROTOCOL:Pharmacologic stress was achieved with a 10-second intravenous infusion of regadenoson 0.4 mg. The radiopharmaceutical was administered 30 seconds after the start of the regadenoson infusion. IMAGING PROTOCOL:Limited low-dose CT imaging was performed for attenuation correction. 34.1 mCi of Rb-82 chloride was injected intravenously at rest, and gated PET images were obtained. Then, 33.6 mCi of Rb-82 chloride was injected intravenousl y at peak stress, and gated PET images were obtained. Image quality is good. REST FINDINGS:HR: 75/minBP: 127/85 mmHgPrelim. EKG: Atrial fibrillation.Perfusion: Normal.Wall Motion: Normal (LVEF 53%).LV Volume: Normal. STRESS FINDINGS:HR: 86/min (63% of MPHR)BP: 148/80 mmHgPrelim. EKG: No ischemic changes.Symptoms: None (treatment not required).Perfusion: Normal.Wall Motion: Normal (LVEF 61%).LV Volume: Not significantly changed from rest. IMPRESSION:1. Normal study.2. Normal myocardial perfusion. 3. Normal resting LVEF, which does not deteriorate with pharmacologic stress.4. Normal extracardiac tracer distribution.5. There is no prior study for comparison. Signed: Gagandeep Goodwin Verified Date/Time: 07/14/2020 09:42:31 Reading Location: [address] Reading Room N Myocardial Perfusion Pet/CT (Rest & Stress) 2020-07-14 09:42:00Interface, External Ris In - 07/14/2020 9:44 AM CDTFINAL REPORT PROCEDURE: MYOCARDIAL PERFUSION PET IMAGING (Rest/Stress)CPT CODE: 74908 INDICATION: Preoperative risk stratification CARDIOVASCULAR PROFILE:CAD History: NoneSymptoms: Chest painRisk Factors: Tobacco use, CVA, hypertension, atrial fibrillationBMI: 26.9Medications: Amlodipine, hydralazine, labetalol, lisinopril STRESS PROTOCOL:Pharmacologic stress was achieved with a 10-second intravenous infusion of regadenoson 0.4 mg. The radiopharmaceutical was administered 30 seconds after the start of the regadenoson infusion. IMAGING PROTOCOL:Limited low-dose CT imaging was performed for attenuation correction. 34.1 mCi ofRb-82 chloride was injected intravenously at rest, and gated PET images were obtained. Then, 33.6 mCi of Rb-82 chloride was injected intravenously at peak stress, and gated PET images were obtained. Image quality is good. REST FINDINGS:HR: 75/minBP: 127/85 mmHgPrelim. EKG: Atrial fibrillation.Perfusion: Normal.Wall Motion: Normal (LVEF 53%).LV Volume: Normal. STRESS FINDINGS:HR: 86/min (63% of MPHR)BP: 148/80 mmHgPrelim. EKG: No ischemic changes.Symptoms: None (treatment not required).Perfusion: Normal.Wall Motion: Normal (LVEF 61%).LV Volume: Not significantly changed from rest. IMPRESSION:1. Normal study.2. Normal myocardial perfusion. 3. Normal resting LVEF, which does not deteriorate with pharmacologic stress.4. Normal extracardiac tracer distribution.5. There is no prior study for comparison. Signed: Gagandeep Goodwin MDReport Verified Date/Time: 07/14/2020 09:42:31 Reading Location: [address] Reading Room [facility] TSH/Free T4 If [id number] 06:16:00 Test Item Value Reference Range Interpretation Comments TSH (test code = 2.192 See_Comment [Automated 69510-0) message] The system which generated this result transmit nano reference range : 0.350 - 4.940 uIU/mL. The reference range was not used to interpret this result as normal/abnormal . WINSTON (test code = WINSTON) Test Specialist ID - XIOMARA Lab Interpretation Normal (test code = 27838-9) [facility] T4 IF [id number] 06:16:00 Test Item Value Reference Range Interpretation Comments THYROID STIMULATING HORMONE 2.192 uIU/mL 0.350-4.940 (BEAKER) (test code = 772) Test Specialist ID - XIOMARA omprehensive metabolic [id number] 05:02:00 Test Item Value Reference Range Interpretation Comments Protein, Total (test 6.4 See_Comment Specime n slightly code = 2885-2) hemolyzed [Automated message] The system which generated this result transmit nano reference range : 6.0 - 8.3 gm/dL . The reference range was not u sed to interpret th is result as normal/abnormal . Albumin (test code = 3.3 g/dL 3.5-5 L Specime n slightly 86577-1) hemolyzed Alkaline Phosphatase 115 U/L 40-150 (test code = 6768-6) Total Bilirubin (test 1.2 mg/dL 0.2-1.2 Specim en slightly code = 1974-2) hemolyzed Sodium (test code = 138 meq/L 343-917 9836-2) Potassium (test code 3.6 meq/L 3.5-5.1 Specime n slightly = 2823-3) hemolyzed Chloride (test code = 105 meq/L 98-107 2075-0) CO2 (test code = 23 meq/L 22-29 2027-9) BUN (test code = 16 mg/dL 7-21 3094-0) Creatinine (test code 0.72 mg/dL 0.57-1.25 Specim en slightly = 2160-0) hemolyzed Glucose (test code = 108 mg/dL 70-105 H 2345-7) Calcium (test code = 8.7 mg/dL 8.4-10.2 81636-8) AST (test code = 24 U/L 5-34 Specimen sl ightly 1920-8) hemolyzed ALT (test code = 71 U/L 6-55 H Specimen sl ightly 1742-6) hemolyzed EGFR (test code = 104 mL/min/1.73 [place] [address]-5) NOT ACCURATE CREATININE CLEARANCE IN PREDICTING GLOMERULAR FILTRATION RATE . ESTIMATED GFR I S NOT APPLICABLE FOR DIALYSIS PATIEN WINSTON (test code = WINSTON) Test Specialist ID - XIOMARA M Lab Interpretation Abnormal (test code = 71083-8) [facility] CenterCOMPRE[facility]ENSIVE METABOLIC [id number] 05:02:00 Test Item Value Reference Range Interpretation Comments TOTAL PROTEIN 6.4 gm/dL 6.0-8.3 Specimen sligh tly (BEAKER) (test code = hemoly zed 770) ALBUMIN (BEAKER) 3.3 g/dL 3.5-5.0 L Specimen sl ightly (test code = 1145) hemolyzed ALKALINE PHOSPHATASE 115 U/L 40-150 (BEAKER) (test code = 346) BILIRUBIN TOTAL 1.2 mg/dL 0.2-1.2 Specimen sli ghtly (BEAKER) (test code = hemoly zed 377) SODIUM (BEAKER) (test 138 meq/L 136-145 code = 381) POTASSIUM (BEAKER) 3.6 meq/L 3.5-5.1 Specimen slightly (test code = 379) hemolyzed CHLORIDE (BEAKER) 105 meq/L 98-107 (test code = 382) CO2 (BEAKER) (test 23 meq/L 22-29 code = 355) BLOOD UREA NITROGEN 16 mg/dL 7-21 (BEAKER) (test code = 354) CREATININE (BEAKER) 0.72 mg/dL 0.57-1.25 Specimen slightly (test code = 358) hemolyzed GLUCOSE RANDOM 108 mg/dL 70-105 H (BEAKER) (test code = 652) CALCIUM (BEAKER) 8.7 mg/dL 8.4-10.2 (test code = 697) AST (SGOT) (BEAKER) 24 U/L 5-34 Specimen slightly (test code = 353) hemolyzed ALT (SGPT) (BEAKER) 71 U/L 6-55 H Specimen slightly (test code = 347) hemolyzed EGFR (BEAKER) (test 104 ESTIMATE D GFR IS code = 1092) mL/min/1.73 sq NOT ACCURA TE m CREATININE CLEARANCE IN PREDICTING GLOMERULAR FILTRATION RATE . ESTIMATED GFR I S NOT APPLICABLE FOR DIALYSIS PATIEN TS. Test Specialist ID - [facility] [place] ([place] only)2020-07-14 04:41:00 Test Item Value Reference Range Interpretation Comments WBC (test code = 6690-2) 9.5 See_Comment [A utomated message] The system [employer] generated this result transmitted ref erence range: 3.5 - 10 .5 K/L. The refe rence range was not u sed to interpret this result as normal/abnor mal. RBC (test code = 789-8) 4.35 See_Comment L [Au tomated message] The system [employer] generated this result transmitted ref erence range: 4.63 - 6 .08 M/L. The refe rence range was not u sed to interpret this result as normal/abnor mal. MCHC (test code = 786-4) 34.4 See_Comment L [A utomated message] The system [employer] generated this result transmitted ref erence range: 32.3 - 3 6.5 GM/DL. The refe rence range was not u sed to interpret this result as normal/abnor mal. Hematocrit (test code = 36.3 % 40.1-51 L 4544-3) MCV (test code = 787-2) 83.4 fL 79-92.2 MCH (test code = 785-6) 28.7 pg 25.7-32.2 RDW (test code = 788-0) 14.0 % 11.6-14.4 Platelets (test code = 215 See_Comment [Aut omated message] 777-3) The system [employer] generated this result transmitted ref erence range: 150 - 45 0 K/CU MM. The referen ce range was not u sed to interpret this result as normal/abnor mal. MPV (test code = 10.2 fL 9.4-12.4 24462-7) nRBC (test code = 413) 0 See_Comment [Aut omated message] The system [employer] generated this result transmitted ref erence range: 0 - 0 /1 00 WBC. The refere nce range was not u sed to interpret this result as normal/abnor mal. Lab Interpretation (test Abnormal code = 69297-8) [facility] (HEMOGRAM ONLY)2020-07-14 04:41:00 Test Item Value Reference Range Interpretation Comments WHITE BLOOD CELL COUNT (BEAKER) 9.5 K/ L 3.5-10.5 (test code = 775) RED BLOOD CELL COUNT (BEAKER) 4.35 M/ L 4.63-6.08 L (test code = 761) HEMOGLOBIN (BEAKER) (test code = 12.5 GM/DL 13.7-17.5 L 410) HEMATOCRIT (BEAKER) (test code = 36.3 % 40.1-51.0 L 411) MEAN CORPUSCULAR VOLUME (BEAKER) 83.4 fL 79.0-92.2 (test code = 753) MEAN CORPUSCULAR HEMOGLOBIN 28.7 pg 25.7-32.2 (BEAKER) (test code = 751) MEAN CORPUSCULAR HEMOGLOBIN CONC 34.4 GM/DL 32.3-36.5 (BEAKER) (test code = 752) RED CELL DISTRIBUTION WIDTH 14.0 % 11.6-14.4 (BEAKER) (test code = 412) PLATELET COUNT (BEAKER) (test 215 K/CU MM 150-450 code = 756) MEAN PLATELET VOLUME (BEAKER) 10.2 fL 9.4-12.4 (test code = 754) NUCLEATED RED BLOOD CELLS 0 /100 WBC 0-0 (BEAKER) (test code = 413) 2D Echo W/Doppler(CW/PW/Color)2020-07-13 18:19:52Ejection FractionSLEH ECHO HEARTLAB MKCKESSON CPACSInterface, External Ris In - 07/13/2020 6:20 PM C DTTransthoracic Echocardiography Report (TTE) Demographics Patient Name SAYRA, Date of Study 07/13/2020 PALOMO Gender Male Visit Number [id number] Race Unknown Room Number 1527 Number Date of 1935 Referring Physician Florinda Waters NP Age 84 year(s) Charge Weigher Martin Rey, [facility] [place] Meg Packer, Interpreting Brodie Martinez MD [facility] Physician Procedure Type of Study TTE procedure:2DECHO W DOPPLER(CW/PW/COLOR) (Routine) Indications:Suspected hypertensive heart disease.Clinical HistoryTIA,Stroke, HTN, arrhythmiaHeight: 62 inches Weight: 66.68 kg (147 lbs) BSA: 1.68 m^2 BMI: 26.89 kg/m^2HR: 75 bpm BP: 155/95 mmHg Summary The left ventricle is chamber size (by vol index) is normal (male -LVED vol - 34-74ml/m2). Mild septal hypertrophy is present. All of the LV segments have low normal contractility . LVEF by Ryan's method of disk assessment is lower limits of normal (50-55%) . Degree of diastolic dysfunction (LAP assessment) is inconclusive due to arrhythmia . Estimated peak systolic PA pressure is 35-40 mmHg . Previous Study No prior studies available for comparison. Signature Findings Technical Quality: Technically adequate exam. Rhythm/BP Atrial fibrillation with controlled ventricular response. Left Ventricle The left ventricle is chamber size (by vol index) is normal (male - LVED vol - 34-74ml/m2). Mild septal hypertrophy is present. All of the LV segments have low normal contractility . Global LV systolic function lower limits of normal . LVEF by Ryan's method of disk assessment is lower limits of normal (50-55%) . Degree of diastolic dysfunction (LAP assessment) is inconclusive due to arrhythmia . Left Atrium LA size is severely enlarged (>48 ml/m2) . Right Ventricle The right ventricular chamber size and systolic function are within normal limits. Right Atrium RA cavity size is mildly enlarged . Aortic Valve Mild AoV cusp calcification. AoV calcification primarily involves the non- coronary cusp(s). Mitral Valve Mild MV leaflet thickening. Trace mitral regurgitation. Tricuspid Valve TV structure is normal. Mild tricuspid regurgi tation. Estimated peak systolic PA pressure is 35-40 mmHg . Pulmonic Valve Mild pulmonary regurgitation. Normal PV structure appears normal by available views. Aorta Aortic root size (SInus of Valsalva diameter) is normal . Pericardium No pericardial effusion is visualized. IVC/SVC/PA/PV/Pleural The estimated RA pressure by IVC dynamics 5- 10mmHg . Chambers/Structures Left Atrium LA Volume: 136.95 ml LA Area: 31.08 cm^2 LA Vol. Index: 82 ml/m^2 Left Ventricle LVIDd: 4.39 cm LV Septum Diastolic: 1.27 cm LV PW Diastolic: 1.02cm LVEDV Ryan's:66.06 ml LVESV Ryan's:31.54 ml LVEF Ryan's: 52.3 % LVEDVI: 39 ml/m^2 LVESVI: 19 ml/m^2 LVOT Diameter: 1.98 cm Right Atrium RA Area: 29.7 cm^2 Right Ventricle RVOT VTI: 9.05 cm Aorta Ao Root S of Shanon.: 3.64 cm Doppler/Quantitative Measurements Mitral Valve MV Peak E-Wave: 1 m/s MV Peak A-Wave: 0.28 m/s E/A Ratio: 3.59 Peak Gradient: 3.97 mmHg Deceleration Time: 157.3 msec MV Asher. Peak:Aortic Valve Peak Velocity: 1.14 m/s Mean Velocity: 0.72 m/s Peak Gradient: 5.18 mmHg Mean Gradient: 2.43 mmHg AV Area (continuity): 2.68 cm^2 AV VTI: 20.71 cm AV DVI: 0.87 LVOT Peak Velocity: 1.03 m/s Peak Gradient: 4.29 mmHg Mean Velocity: 0.59 m/s Mean Gradient: 1.75 mmHg LVOT Diameter: 1.98 cm LVOT VTI: 18.06 cm LVOT Area: 3.08 cm^2 LVOT SV:55.58 ml LVOT CO: 4.17 l/min LVOT CI: 2.48 l/min/m^2 Tricuspid Valve TR Velocity: 2.49 m/s TR Gradient: 24.81 mmHgChapman Medical CenterECG 12 [id number] 16:32:30Interface, External Ris In - 07/13/2020 4:32 PM CDTVentricular Rate 80 BPMAtrial Rate 81 BPMQRS Duration 82 msQ-T Interval 366 msQTC Calculation(Bazett) 422 msR [place] 68 degreesT [place] 57 degreesAtrial f ibrillationSeptal infarct , age undeterminedAbnormal ECGWhen compared with ECG of [id number] significant changesConfirmed by Mere BRENNER, TOM ([id number]) on 07/13/2020 4:32:27 [facility]COM[facility] 2020-07-13 10:58:00 Test Item Value Reference Range Interpretation Comments TOTAL PROTEIN 6.4 gm/dL 6.0-8.3 (BEAKER) (test code = 770) ALBUMIN (AKER) 3.4 g/dL 3.5-5.0 L (test code = 1145) ALKALINE PHOSPHATASE 128 U/L 40-150 (BEAKER) (test code = 346) BILIRUBIN TOTAL 1.6 mg/dL 0.2-1.2 H (BEAKER) (test code = 377) SODIUM (BEAKER) (test 140 meq/L 136-145 code = 381) POTASSIUM (BEAKER) 3.7 meq/L 3.5-5.1 (test code = 379) CHLORIDE (BEAKER) 106 meq/L 98-107 (test code = 382) CO2 (BEAKER) (test 28 meq/L 22-29 code = 355) BLOOD UREA NITROGEN 17 mg/dL 7-21 (BEAKER) (test code = 354) CREATININE (BEAKER) 0.76 mg/dL 0.57-1.25 (test code = 358) GLUCOSE RANDOM 118 mg/dL 70-105 H (BEAKER) (test code = 652) CALCIUM (BEAKER) 8.9 mg/dL 8.4-10.2 (test code = 697) AST (SGOT) (BEAKER) 25 U/L 5-34 (test code = 353) ALT (SGPT) (BEAKER) 94 U/L 6-55 H (test code = 347) EGFR (BEAKER) (test 97 mL/min/1.73 ESTIMA NANO GFR IS code = 1092) sq m NOT ACCURATE CREATININE CLEARANCE IN PREDICTING GLOMERULAR FILTRATION RATE . ESTIMATED GFR I S NOT APPLICABLE FOR DIALYSIS PATIEN TS. Test Specialist ID - [facility] (HEMOGRAM ONLY)2020-07-13 10:39:00 Test Item Value Reference Range Interpretation Comments WHITE BLOOD CELL COUNT (BEAKER) 11.9 K/ L 3.5-10.5 H (test code = 775) RED BLOOD CELL COUNT (BEAKER) 4.51 M/ L 4.63-6.08 L (test code = 761) HEMOGLOBIN (BEAKER) (test code = 12.9 GM/DL 13.7-17.5 L 410) HEMATOCRIT (BEAKER) (test code = 39.0 % 40.1-51.0 L 411) MEAN CORPUSCULAR VOLUME (BEAKER) 86.5 fL 79.0-92.2 (test code = 753) MEAN CORPUSCULAR HEMOGLOBIN 28.6 pg 25.7-32.2 (BEAKER) (test code = 751) MEAN CORPUSCULAR HEMOGLOBIN CONC 33.1 GM/DL 32.3-36.5 (BEAKER) (test code = 752) RED CELL DISTRIBUTION WIDTH 14.1 % 11.6-14.4 (BEAKER) (test code = 412) PLATELET COUNT (BEAKER) (test 200 K/CU MM 150-450 code = 756) MEAN PLATELET VOLUME (BEAKER) 9.9 fL 9.4-12.4 (test code = 754) NUCLEATED RED BLOOD CELLS 0 /100 WBC 0-0 (BEAKER) (test code = 413) RAD, CHEST, 1 VIEW, NON [id number] 00:03:00Reason for exam:->chest painShould this be performed at the bedside?->Yes [facility] : 1935 Sex: MFINAL REPORT Chest one view. Clinical history: chest pain Comparison: None. Technique: A single frontal view of the chest was obtained. Findings: The cardiomediastinal silhouette is mildly enlarged. The aorta is tortuous and atherosclerotic. There is elevation of the right hemidiaphragm with mild compressive atelectasis. There is a small right pleural effusion. There is mild linear atelectasis/scarring in the left lung base. There is no pneumothorax or pulmonary edema. There is a partially imaged biliary stent. The osseous structures are demineralized. There are degenerative changes of the visualized spine and bilateral shoulders. There is a right chronic rotator cuff tear. Signed: Vito Downs MDReport Verified Date/Time: 07/13/2020 00:03:29 XR chest 1 view portable / [id number] 00:03:00Interface, External Ris In - 07/13/2020 12:05 AM CDTFINAL REPORT Chest one view. Clinical history: chest pain Comparison: None. Technique: A single frontal view of the chest wasobtained. Findings: The cardiomediastinal silhouette is mildly enlarged. The aorta is tortuous and atherosclerotic. There is elevation of the right hemidiaphragm with mild compressive atelectasis. There is a small right pleural effusion. There is mild linear atelectasis/scarring in the left lung base. There is no pneumothorax or pulmonary edema. There is a partially imaged biliary stent. The osseousstructures are demineralized. There are degenerative changes of the visualized spine and bilateral shoulders. There is a right chronic rotator cuff tear. Signed: Vito Downs Verified Date/Time: 07/13/2020 00:03:29 [facility]High [facility] ([facility]/Homero Only)2020-07-12 23:05:00 Test Item Value Reference Range Interpretation Comments Troponin I HS 5 pg/ml See_Comment [Automated (test code = message] The 32346-5) system which generated this result transmitted reference range : <=35. The reference range was not used to interpret this result as normal/abnormal . WINSTON (test code = Test Specialist ID - WINSTON) BSThe PET FEEDER STAT High Sensitivity Troponin-I results should be used in conjunction with other diagnostic information such as ECG, clinical observations and information, and patient symptoms to aid in the diagnosis of [place]. Lab Interpretation Normal (test code = 50528-4) [facility] CenterH[facility]ITIV[facility] TROPONIN [id number] 23:05:00 Test Item Value Reference Range Interpretation Comments HIGH SENSITIVITY 5 pg/ml See_Comment [Automated message] TROPONIN I (test code = The system which 3171536) generated this result transmitted ref erence range: <=35. Th e reference range was not used to interpr et this result as normal/abnormal . Test Specialist ID - BSThe PET FEEDER STAT High Sensitivity Troponin-I results should be used in conjunctionwith other diagnostic information such as ECG, clinical observations and information, and patient symptoms to aid in the diagnosis of [place].FINE NEEDLE ASPIRATE (FNA) [id number] 20:01:00 Test Item Value Reference Range Interpretation Comments Cytology (test code = See Separate Report 2629) [facility] CenterF[facility] ASPIR[facility] (FNA) [id number] 20:01:00 Test Item Value Reference Range Interpretation Comments CYTOLOGY RESULT POINTER See Separate Report (BEAKER) (test code = 2629) FINE NEEDLE ASPIRATE (FNA) [id number] 20:01:00 Test Item Value Reference Range Interpretation Comments CYTOLOGY RESULT POINTER See Separate Report (BEAKER) (test code = 2629) [place], [id number] 17:42:00Reason for exam:->Abnormal imagery [facility] : 1935 Sex: MFluoroscopic unit utilized for a procedure performed in the OR. No interpretation was requested. Refer to the operative report for findings. Refer to PACS for patient radiation dose information.[place] [id number] 17:42:00Interface, External Ris In - 07/12/2020 6:06 PM CDTFluoroscopic unit utilized for a procedure performed in the OR. No interpretation was requested. Refer to the operative report for findings. Referto PACS for patient radiation dose information.[facility] CenterCT, ABDOMEN, PANCREAS [id number] 14:16:00Unlisted Reason for Exam - Click Yes and Enter Reason Below->YesUnlisted Reason for Exam->Possible gallbladder mass versus stricture on MRCP and US. [facility] : 1935 Sex: MAddendum BeginsREPORT STATUS:A An abdominal aortic aneurysm measures 3 cm in diameter. A follow-up examination is recommended every 3 years. Signed: J Luis Christopher Verified Date/Time: 07/12/2020 14:16:51 Reading Location: [address] Body Reading RoomAddendum EndsFINAL REPORT CT, ABDOMEN, PANCREAS EVALUATION HISTORY: Unlisted Reason forExamPossible gallbladder mass versus stricture on MRCP and US. COMPARISON: MRCP 07/11/2020 TECHNIQUE:CT abdomen only, pancreas protocol, without and with intravenous contrast. Dose modulation, iterative reconstruction, and/or weight- based adjustment of the mA/kV was utilized to reduce the radiation dose to as low as reasonably achievable. FINDINGS: Lower thorax: Small bilateral pleural effusions withunderlying atelectasis. Cardiomegaly and coronary artery calcificationsLiver: Normal density and contour. A few subsegmental hypoattenuating foci without enhancement related to small cysts. A 2.8 cm focus of coarse calcifications remain in segment 7. Additional scattered punctate hepatic calcifications related to old granulomatous diseaseGallbladder and bile ducts: An enhancing mass with irregular margins and heterogeneous enhancement along the inferior surface of the gallbladder, measuring 5.0 x 2.4 cm, indistinct fat plane between the mass and hepatic flexure of the colon. Additionally, there is a gallstone. No wall thickening of the non-mass portion of the gallbladder wall and no pericholecystic edema. No biliary ductal dilationSpleen: Unremarkable.Pancreas: Unremarkable.Adrenals: UnremarkableK idneys and ureters: Left renal cortical scarring. Subcentimeter nonenhancing foci bilaterally, too small to characterize but likely related to cysts. No hydronephrosisBowel: Questionable hepatic flexure involvement as described above. Otherwise unremarkableLymph nodes: Heterogeneous portacaval lymph node measuring 5.5 x 2.8 cm.Peritoneum: Small free peritoneal fluid, nonspecific, most notable adjacent to the pancreatic tail.Vessels: Supra mesenteric abdominal aorta measures up to 3 cm in diameter and infrarenal abdominal aorta measures up to 2.9 cm in diameter.Abdominal wall: Unremarkable.Bones: Multilevel degenerative changes of the visible spine. 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 2.Cholelithiasis without evidence for acutecholecystitis 3.Small free peritoneal fluid, nonspecific, most notable adjacent to the pancreatic tail. Correlate with serum lipase. 4.A 2.8 cm focus of coarse calcification in the posterior right hepatic lobe, possibly sequelae of old granulomatous disease or prior trauma. Signed: J Luis ChristopherVerified Date/Time: 07/12/2020 10:42:39 Reading Location: [place] [id number] CT Body Reading Room Carcinoembryonic Antigen (CEA)2020-07-12 13:36:00 Test Item Value Reference Range Interpretation Comments CEA, SERUM (test code = 16.3 ng/mL 0-5 H 2038-07) WINSTON (test code = WINSTON) Test Specialist ID - ADMIN Lab Interpretation (test Abnormal code = 23673-8) [facility] CenterCARCINOEMBRYONIC ANTIGEN (CEA)2020-07-12 13:36:00 Test Item Value Reference Range Interpretation Comments CARCINOEMBRYONIC ANTIGEN (BEAKER) 16.3 ng/mL 0.0-5.0 H (test code = 685) Test Specialist ID - ADMINCT abdomen - pancreas [id number] 10:42:00Interface, External Ris In - 07/12/2020 2:18 PM CDTAddendum BeginsREPORT STATUS:A An abdominal aortic aneurysm measures 3 cm in diameter. A follow-up examination is recommendedevery 3 years. Signed: J Luis Christopher Verified Date/Time: 07/12/2020 14:16:51 Reading Location: [facility] B[facility] C013Y CT Body Reading RoomAddendum EndsFINAL REPORT CT, ABDOMEN, PANCR EAS EVALUATION HISTORY: Unlisted Reason for ExamPossible gallbladder mass versus stricture on MRCP and US. COMPARISON: MRCP 07/11/2020 TECHNIQUE: CT abdomen only, pancreas protocol, without and with intravenous contrast. Dose modulation, iterative reconstruction, and/or weight-based adjustment of the mA/kV was utilized to reduce the radiation dose to as low as reasonably achievable. FINDINGS: Lower thorax: Small bilateral pleural effusions with underlying atelectasis. Cardiomegaly and coronary arterycalcificationsLiver: Normal density and contour. A few subsegmental hypoattenuating foci without enhancement related to small cysts. A 2.8 cm focus of coarse calcifications remain in segment 7. Additional scattered punctate hepatic calcifications related to old granulomatous diseaseGallbladder and bile ducts: An enhancing mass with irregular margins and heterogeneous enhancement along the inferior surface of the gallbladder, measuring 5.0 x 2.4 cm, indistinct fat plane between the mass and hepatic flexure of the colon. Additionally, there is a gallstone. No wall thickening of the non-mass portion of the gallbladder wall and no pericholecystic edema. No biliary ductal dilationSpleen: Unremarkable.Pancreas: Unremarkable.Adrenals: UnremarkableKidneys and ureters: Left renal cortical scarring. Subcentimeter nonenhancing foci bilaterally, too small to characterize but likely related to cysts. No hydronephrosisBowel: Questionable hepatic flexure involvement as described above. Otherwise unremarkableLymph nodes: Heterogeneous portacaval lymph node measuring 5.5 x 2.8 cm.Peritoneum: Small free peritoneal fluid, nonspecific, most notable adjacent to the pancreatic tail.Vessels: Supra mesenteric abdominal aorta measures up to 3 cm in diameter and infrarenal abdominal aorta measures up to 2.9 cm in diameter.Abdominal wall: Unremarkable.Bones: Multilevel degenerative changes of the visible spine. 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 Correlate with serum lipase. 4.A 2.8 cm focus of coarse calcification in the posterior right hepatic lobe, possibly sequelae of old granulomatous disease or prior trauma. Signed: J Luis Christopher Verified Date/Time: 07/12/2020 10:42:39 Reading Location: [facility] B1 C013Y CT Body Reading [facility]ARS[facility] (Asymptomatic ONLY)2020-07-11 17:34:00 Test Item Value Reference Range Interpretation Comments SARS-COV2/RT-PCR Negative Not Detected, (test code = Negative, See 03318-8) external report for linked test SARS-COV-2 [facility] PERFORMING LAB (test code = 27973-1) WINSTON (test code = Negative results do not WINSTON) preclude SARS-CoV-2 infection and should not be used as the sole basis for patient management decisions. Negative results must be combined with clinical observations, patient history, and epidemiological information. A false negative result may occur if a specimen is improperly collected, transported or handled. The limit of detection for this assay is 250 copies/mL. This SARS CoV-2 test is a rapid, real-time RT-PCR test intended for the qualitative detection of nucleic acid from SARS-CoV-2 in a nasopharyngeal swab specimen collected from individuals suspected of COVID-19 by their healthcare provider. This test has not been Food and Drug Administration (FDA) cleared or approved and has been authorized by FDA under an Emergency Use Authorization (EUA). This EUA will be effective until the declaration that circumstances exist justifying the authorization of the emergency use of in vitro diagnostic tests for detection and/or diagnosis of COVID-19 is terminated under Section 564(b)(2) of the Act or the EUA is revoked under Section 564(g) of the Act. Fact Sheet for Healthcare Providers:https://www.[employer]Book.[employer]/Documents/Xper t%20Xpress%20SARS%20CoV- 2/Fact%20Sheets/302-8932 %91FSBH-PCG-8%20HEALTHCA RE%20PROVIDERS%20FACT%20 SHEET.pdf Fact Sheet for Healthcare Patients:https://www.[employer]/Documents/Xpert %20Xpress%20SARS%20CoV-2 /Fact%20Sheets/302-3801% 55STPH-MSO-6%20PATIENT%2 0FACT%20SHEET.pdf Performing Laboratory:[facility] [place] [address] [facility] CenterARS-[facility]OV2/[facility] ([facility])2020-07-11 17:34:00 Test Item Value Reference Range Interpretation Comments SARS-COV2/RT-PCR (test code Negative Not Detected, Negative, = 5100386) See external report for linked test SARS-COV-2 PERFORMING LAB [facility] (test code = 4089777) Negative results do not preclude SARS-CoV-2 infection and should not be used as the sole basis for patient management decisions. Negative results must be combined with clinical observations, patient history, and epidemiological information. A false negative result may occur if a specimen is improperly collected, transported or handled.The limit of detection for this assay is 250 copies/mL.This SARS CoV-2 test is a rapid, real-time RT-PCR test intended for the qualitative detection of nucleic acid from SARS-CoV-2 in a nasopharyngeal swab specimen collected from individuals suspected of COVID-19 by their healthcare provider.This test has not been Food and Drug Administration (FDA) cleared or approved and has been authorized by FDA under an Emergency Use Authorization (EUA). This EUA will be effective until the declaration that circumstances exist justifying the authorization of the emergency use of in vitro diagnostic tests for detection and/or diagnosis of COVID-19 is terminated under Section 564(b)(2) of the Act or the EUA is revoked under Section 564(g) of the Act.Fact Sheet for Healthcare Pro viders:https://www.[employer]/Documents/Xpert%20Xpress%20SARS%20CoV-2/Fact%20Sh eets/3023802%28TTAN-EWS-6%20HEALTHCARE%20PROVIDERS%20FACT%20SHEET.pdfFact Sheet for Healthcare Patients:https://www.[employer]ool.[employer]/Documents/Xpert%20Xpress%20SARS%20CoV-2/Fact%20Sheets/302-3801%20SARS-COV -2%20PATIENT%20FACT%20SHEET.pdfPerforming Laboratory:[facility], [place] [id number] 15:36:00 Test Item Value Reference Range Interpretation Comments Lipase (test code = 3040-3) 975 U/L 8-78 H WINSTON (test code = WINSTON) Test Specialist ID - DB Lab Interpretation (test Abnormal code = 32089-7) [facility]00 Test Item Value Reference Range Interpretation Comments LIPASE (BEAKER) (test code = 749) 975 U/L 8-78 H Test Specialist ID - DBMR, ABDOMEN, [id number] 13:59:00Has gallbladder mass as well as choledocholithiasis with dilated CBDUnlisted Reason for Exam - ClickYes and Enter Reason Below->No [facility] 1935 Sex: MFINAL REPORT TECHNIQUE: MRI of the abdomen and MRCP WITHOUT intravenou s contrast. 3-D volume reconstructions were obtained to evaluate the biliary ductal system. INDICATION: 84-year-old man with biliary obstruction suspected. COMPARISON: None. FINDINGS: ABSENCE OF INTRAVENOUS CONTRAST DECREASES SENSITIVITY FOR DETECTION OF FOCAL LESIONS AND VASCULAR PATHOLOGY. LOWER THORAX: Unremarkable. LIVER: No cirrhosis or hepatic steatosis. Scattered subcentimeter hepatic cysts. BILIARY: 1.7 cm stone and 3.6 x 4.2 cm T2 intermediate signal structure within the gallbladder. Intrahepatic and extrahepatic bile ducts appear within normal limits in caliber for patient age. No filling defect.SPLEEN: No splenomegaly.PANCREAS: Apparent mild peripancreatic edema. No focal mass or ductal dilatation. ADRENALS: No adrenal nodule.KIDNEYS/URETERS: No hydronephrosis or mass. 0.9 cm right renal cyst. PERITONEUM/RETROPERITONEUM: Trace ascites.LYMPH NODES: No lymphadenopathy.VESSELS: Unremarkable. GI TRACT: No distention or wall thickening. BONES AND SOFT TISSUES: Unremarkable. IMPRESSION:Bile ducts appear within normal limits in caliber for patient age. No obstructive process identified. Cholelithiasis. 4.2 cm structure within the gallbladder may represent mass or tumefactive sludge; if indicated, right upper quadrant ultrasound or abdomen MRI/CT with and without intravenous contrast may be obtained. Apparent mild peripancreatic edema. Acute pancreatitis cannot be excluded. This finding may be correlated with serum lipase/amylase. Trace ascites. Signed: Gayle Paredes MDReport Verified Date/Time: 07/11/2020 13:59:31 Reading Location: [address] Consult Reading Room MR abdomen without IV contrast [id number] 13:59:00Interface, External Ris In - 07/11/2020 2:01 PM CDTFINAL REPORT TECHNIQUE: MRI of the abdomen and MRCP WITHOUT intravenous contrast. 3-D volume reconstructions were obtained to e valuate the biliary ductal system. INDICATION: 84-year-old man with biliary obstruction suspected. COMPARISON: None. FINDINGS: ABSENCE OF INTRAVENOUS CONTRAST DECREASES SENSITIVITY FOR DETECTION OF FOCAL LESIONS AND VASCULAR PATHOLOGY. LOWER THORAX: Unremarkable. LIVER: No cirrhosis or hepatic steatosis. Scattered subcentimeter hepatic cysts. BILIARY: 1.7 cm stone and 3.6 x 4.2 cm T2 intermediate signal structure within the gallbladder. Intrahepatic and extrahepatic bile ducts appear within normal limits in caliber for patient age. No filling defect.SPLEEN: No splenomegaly.PANCREAS: Apparent mild peripancreatic edema. No focal mass or ductal dilatation. ADRENALS: No adrenal nodule.KIDNEYS/URETERS: No hydronephrosis or mass. 0.9 cm right renal cyst. PERITONEUM/RETROPERITONEUM: Trace ascites.LYMPHNODES: No lymphadenopathy.VESSELS: Unremarkable. GI TRACT: No distention or wall thickening. BONES AND SOFT TISSUES: Unremarkable. IMPRESSION:Bile ducts appear within normal limits in caliber for patient age. No obstructive process identified. Cholelithiasis. 4.2 cm structure within the gallbladder may represent mass or tumefactive sludge; if indicated, right upper quadrant ultrasound or abdomen MRI/CT with and without intravenous contrast may be obtained. Apparent mild peripancreatic edema. Acute pancreatitis cannot be excluded. This finding may be correlated with serum lipase/amylase. Trace ascit es. Signed: Gayle Paredes MDReport Verified Date/Time: 07/11/2020 13:59:31 Reading Location: [facility] B1 [id number] Consult Reading Room [facility] Lactic acid, [id number] 07:02:00 Test Item Value Reference Range Interpretation Comments Lactate, Venous (test code = 1.09 mmol/L 0.5-2.2 2872) WINSTON (test code = WINSTON) Test Specialist ID - DB Lab Interpretation (test Normal code = 76265-4) [facility], [id number] 07:02:00 Test Item Value Reference Range Interpretation Comments LACTATE BLOOD VENOUS (2) (BEAKER) 1.09 mmol/L 0.50-2.20 (test code = 2872) Test Specialist ID - DBCOMPREHENSIVE METABOLIC [id number] 07:02:00 Test Item Value Reference Range Interpretation Comments TOTAL PROTEIN 7.2 gm/dL 6.0-8.3 (BEAKER) (test code = 770) ALBUMIN (BEAKER) 3.9 g/dL 3.5-5.0 (test code = 1145) ALKALINE PHOSPHATASE 209 U/L 40-150 H (BEAKER) (test code = 346) BILIRUBIN TOTAL 1.6 mg/dL 0.2-1.2 H (BEAKER) (test code = 377) SODIUM (BEAKER) (test 140 meq/L 136-145 code = 381) POTASSIUM (BEAKER) 3.7 meq/L 3.5-5.1 (test code = 379) CHLORIDE (BEAKER) 107 meq/L 98-107 (test code = 382) CO2 (BEAKER) (test 23 meq/L 22-29 code = 355) BLOOD UREA NITROGEN 13 mg/dL 7-21 (BEAKER) (test code = 354) CREATININE (BEAKER) 0.99 mg/dL 0.57-1.25 (test code = 358) GLUCOSE RANDOM 128 mg/dL 70-105 H (BEAKER) (test code = 652) CALCIUM (BEAKER) 9.1 mg/dL 8.4-10.2 (test code = 697) AST (SGOT) (BEAKER) 219 U/L 5-34 H (test code = 353) ALT (SGPT) (BEAKER) 242 U/L 6-55 H (test code = 347) EGFR (BEAKER) (test 72 mL/min/1.73 ESTIMA NANO GFR IS code = 1092) sq m NOT ACCURATE CREATININE CLEARANCE IN PREDICTING GLOMERULAR FILTRATION RATE . ESTIMATED GFR I S NOT APPLICABLE FOR DIALYSIS PATIEN TS. Test Specialist ID - DBCBC with platelet count + automated [id number] 07:00:00 Test Item Value Reference Range Interpretation Comments WBC (test code = 6690-2) 12.0 See_Comment H [A utomated message] The system [employer] generated this result transmitted ref erence range: 3.5 - 10 .5 K/L. The refe rence range was not u sed to interpret this result as normal/abnor mal. RBC (test code = 789-8) 5.02 See_Comment [Au tomated message] The system [employer] generated this result transmitted ref erence range: 4.63 - 6 .08 M/L. The refe rence range was not u sed to interpret this result as normal/abnor mal. MCHC (test code = 786-4) 33.7 See_Comment [A utomated message] The system [employer] generated this result transmitted ref erence range: 32.3 - 3 6.5 GM/DL. The refe rence range was not u sed to interpret this result as normal/abnor mal. Hematocrit (test code = 42.4 % 40.1-51 4544-3) MCV (test code = 787-2) 84.5 fL 79-92.2 MCH (test code = 785-6) 28.5 pg 25.7-32.2 RDW (test code = 788-0) 14.6 % 11.6-14.4 H Platelets (test code = 214 See_Comment [Aut omated message] 777-3) The system [employer] generated this result transmitted ref erence range: 150 - 45 0 K/CU MM. The referen ce range was not u sed to interpret this result as normal/abnor mal. MPV (test code = 9.9 fL 9.4-12.4 94394-7) nRBC (test code = 413) 0 See_Comment [Aut omated message] The system [employer] generated this result transmitted ref erence range: 0 - 0 /1 00 WBC. The refere nce range was not u sed to interpret this result as normal/abnor mal. % Neutros (test code = 89 % 429) % Lymphs (test code = 5 % 430) % Monos (test code = 5 % 431) % Eos (test code = 432) 0 % % Baso (test code = 437) 0 % # Neutros (test code = 10.68 See_Comment H [Aut omated message] 670) The system [employer] generated this result transmitted ref erence range: 1.78 - 5 .38 K/L. The refe rence range was not u sed to interpret this result as normal/abnor mal. # Lymphs (test code = 0.62 See_Comment L [Auto mated message] 414) The system [employer] generated this result transmitted ref erence range: 1.32 - 3 .57 K/L. The refe rence range was not u sed to interpret this result as normal/abnor mal. # Monos (test code = 0.62 See_Comment [Autom ated message] 415) The system [employer] generated this result transmitted ref erence range: 0.30 - 0 .82 K/L. The refe rence range was not u sed to interpret this result as normal/abnor mal. # Eos (test code = 416) 0.02 See_Comment L [Au tomated message] The system [employer] generated this result transmitted ref erence range: 0.04 - 0 .54 K/L. The refe rence range was not u sed to interpret this result as normal/abnor mal. # Baso (test code = 417) 0.03 See_Comment [A utomated message] The system [employer] generated this result transmitted ref erence range: 0.01 - 0 .08 K/L. The refe rence range was not u sed to interpret this result as normal/abnor mal. Immature 0 % 0-1 Granulocytes-Relative (test code = 2801) Lab Interpretation (test Abnormal code = 26039-7) [facility] W/PLT COUNT & AUTO [id number] 07:00:00 Test Item Value Reference Range Interpretation Comments WHITE BLOOD CELL COUNT (BEAKER) 12.0 K/ L 3.5-10.5 H (test code = 775) RED BLOOD CELL COUNT (BEAKER) 5.02 M/ L 4.63-6.08 (test code = 761) HEMOGLOBIN (BEAKER) (test code = 14.3 GM/DL 13.7-17.5 410) HEMATOCRIT (BEAKER) (test code = 42.4 % 40.1-51.0 411) MEAN CORPUSCULAR VOLUME (BEAKER) 84.5 fL 79.0-92.2 (test code = 753) MEAN CORPUSCULAR HEMOGLOBIN 28.5 pg 25.7-32.2 (BEAKER) (test code = 751) MEAN CORPUSCULAR HEMOGLOBIN CONC 33.7 GM/DL 32.3-36.5 (BEAKER) (test code = 752) RED CELL DISTRIBUTION WIDTH 14.6 % 11.6-14.4 H (BEAKER) (test code = 412) PLATELET COUNT (BEAKER) (test 214 K/CU MM 150-450 code = 756) MEAN PLATELET VOLUME (BEAKER) 9.9 fL 9.4-12.4 (test code = 754) NUCLEATED RED BLOOD CELLS 0 /100 WBC 0-0 (BEAKER) (test code = 413) NEUTROPHILS RELATIVE PERCENT 89 % (BEAKER) (test code = 429) LYMPHOCYTES RELATIVE PERCENT 5 % (BEAKER) (test code = 430) MONOCYTES RELATIVE PERCENT 5 % (BEAKER) (test code = 431) EOSINOPHILS RELATIVE PERCENT 0 % (BEAKER) (test code = 432) BASOPHILS RELATIVE PERCENT 0 % (BEAKER) (test code = 437) NEUTROPHILS ABSOLUTE COUNT 10.68 K/ L 1.78-5.38 H (BEAKER) (test code = 670) LYMPHOCYTES ABSOLUTE COUNT 0.62 K/ L 1.32-3.57 L (BEAKER) (test code = 414) MONOCYTES ABSOLUTE COUNT (BEAKER) 0.62 K/ L 0.30-0.82 (test code = 415) EOSINOPHILS ABSOLUTE COUNT 0.02 K/ L 0.04-0.54 L (BEAKER) (test code = 416) BASOPHILS ABSOLUTE COUNT (BEAKER) 0.03 K/ L 0.01-0.08 (test code = 417) IMMATURE GRANULOCYTES-RELATIVE 0 % 0-1 PERCENT (BEAKER) (test code = 2801) Prothrombin time/[id number] 06:50:00 Test Item Value Reference Interpretation Comments Range Protime (test code = 14.1 See_Comment [Autom ated 8385-2) message] The system which generated this result transmitted reference range : 11.9 - 14.2 seconds. The reference range was not used to interpret this result as normal/abnormal . INR (test code = 1.12 See_Comment [Automated 4257-6) message] The system which generated this result transmitted reference range : <=5.90. The reference range was not used to interpret this result as normal/abnormal . WINSTON (test code = RECOMMENDED WINSTON) COUMADIN/WARFARIN INR THERAPY RANGESSTANDARD DOSE: 2.0 - 3.0 Includes: PROPHYLAXIS for venous thrombosis, systemic embolization; TREATMENT for venous thrombosis and/or pulmonary embolus.HIGH RISK: Target INR is 2.5-3.5 for patients with mechanical heart valves. Lab Interpretation Normal (test code = 99696-8) [facility] CenterPROTHROMBIN [facility]/[id number] 06:50:00 Test Item Value Reference Range Interpretation Comments PROTIME (BEAKER) 14.1 seconds 11.9-14.2 (test code = 759) INR (BEAKER) (test 1.12 See_Comment [Automat ed message] code = 370) The system [employer] generated this result transmitted ref erence range: <=5.90. The reference range was not used to int erpret this result as normal/abnormal . RECOMMENDED COUMADIN/WARFARIN INR THERAPY RANGESSTANDARD DOSE: 2.0 - 3.0 Includes: PROPHYLAXIS forvenous thrombosis, systemic embolization; TREATMENT for venous thrombosis and/or pulmonary embolus.HIGH RISK: Target INR is 2.5-3.5 for patients with mechanical heart valves.[id number] 00:00:00Ordered by an unspecified provider.[facility]
[2020-09-16 09:40] LABS: Basophils % 0.9 % (0-1.3); Hematocrit 41.5 % (39.6-49.0); MPV 7.5 fL (7.6-11.3); RBC Red Blood Cell Count 4.84 M/uL (4.33-5.43)
[2020-09-16 09:47] LABS: Protime INR 1.16
[2020-09-16 10:02] LABS: ALT/SGPT 17 U/L (12-78); AST/SGOT 9 U/L (15-37); Albumin 3.5 g/dL (3.4-5.0); Alkaline Phosphatase 94 U/L (45-117); BUN Blood Urea Nitrogen 17 mg/dL (7-18); Bicarbonate 27 mmol/L (21-32); Bilirubin Direct 0.2 mg/dL (0-0.2); Bilirubin Total 0.7 mg/dL (0.2-1.0); Glucose Level 124 mg/dL (74-106); Magnesium 2.2 mg/dL (1.8-2.4); NT PRO-BNP 1173 pg/mL (<450); Potassium 4.5 mmol/L (3.5-5.1); Protein, Total 7.5 g/dL (6.4-8.2); Sodium Level 140 mmol/L (136-145); Troponin (Emerg Dept Use Only) < 0.02 ng/mL (0.0-0.045)
--- NOTE | 2020-09-16 10:10 | RAD REPORT ---
EXAM DESCRIPTION: Hossein Single View09/16/2020 9:50 am CLINICAL HISTORY: Left upper extremity weakness COMPARISON: June 2020 FINDINGS: The lungs appear clear of acute infiltrate. The heart is mildly enlarged IMPRESSION: No acute abnormalities displayed
--- NOTE | 2020-09-16 10:48 | EKG ---
Test Date: 2020-09-16 Test Time: 09:23:21 Professor Of French: BRIANA MEASUREMENT RESULTS: Intervals: Rate: 62 AR: QRSD: 80 QT: 400 QTc: 406 [place]: P: AR: QRS: 28 T: 51 INTERPRETIVE STATEMENTS: Atrial fibrillation with premature ventricular or aberrantly conducted complexes Septal infarct, age undetermined Abnormal ECG Compared to ECG 07/10/2020 19:09:42 Ventricular premature complex(es) now present Myocardial infarct finding now present Electronically Signed On 09-16-20 10:48:01 CDT by Jesus Poe
--- NOTE | 2020-09-16 12:43 | RAD REPORT ---
EXAM DESCRIPTION: CT - Head Brain Wo Cont - 09/16/2020 12:33 pm CLINICAL HISTORY: Different sensation to LUE Headache, drowsiness COMPARISON: Head Brain Wo Cont dated 01/25/2019; Brain W/Wo Cont dated 01/26/2019 TECHNIQUE: All CT scans are performed using dose optimization technique as appropriate and may inclu de automated exposure control or mA/KV adjustment according to patient size. FINDINGS: No intracranial hemorrhage, hydrocephalus or extra-axial fluid collection.Area of gliosis in the right occipital lobe is noted likely related to old infarction.No areas of brain edema or evid ence of midline shift. The paranasal sinuses and mastoids are essentially clear. The calvarium is intact. IMPRESSION: No acute intracranial abnormality. 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
--- NOTE | 2020-09-16 14:38 | RAD REPORT ---
EXAM DESCRIPTION: MRI - Brain Wo Cont - 09/16/2020 2:27 pm CLINICAL HISTORY: left upper extremty Headache, drowsiness, CVA symptomology COMPARISON: Head Brain Wo Cont dated 09/16/2020 TECHNIQUE: Multi-sequence, multiplanar MR imaging of the brain was performed without contrast. FINDINGS: No intracranial hemorrhage, hydrocephalus or extra-axial fluid collections.Mild periventri cular and deep white matter chronic microvascular ischemic changes are noted. Gliosis in the right oc cipital lobe medially is most compatible with old infarct. No edema or shift of midline structures. N o findings to suspect brain mass. DWI is negative for acute CVA. Midline structures are normally formed. Mild mucosal thickening of the inferior maxillary antra. The paranasal sinuses and mastoids are other roa clear. IMPRESSION: No evidence of acute CVA identified. Evidence of old RN DIABETES EDUCATOR territory infarct on the right noted.
--- NOTE | 2020-09-16 15:03 | EDPHYS ---
Physician Documentation [facility] Name: Moy White Age: 84 yrs Sex: Male : 1935 Arrival Date: 09/16/2020 Time: 08:32 Bed Treatment Private MD: ED Physician Andrey Sellers HPI: 09/16 08:54 This 84 yrs old Male presents to ER via Unassigned with complaints of Doesn't kdr Feel Right, Arm Problem. 09:06 The patient or guardian complains of Altered sensation and subjective weakness. The kdr complaints affect the anterior aspect of left shoulder, left bicep, dorsal aspect of left forearm, left hand, posterior aspect of left shoulder, left tricep, left elbow, left wrist and palmar aspect of left forearm. Context: The problem was sustained at home, resulted from unknown cause. Onset: The symptoms/episode began/occurred suddenly, this morning, at 06:30. Treatment prior to arrival includes: no previous treatment. Modifying factors: The symptoms are alleviated by nothing. the symptoms are aggravated by nothing. Associated signs and symptoms: The patient has no apparent associated signs or symptoms. Severity of symptoms: At their worst the symptoms were mild, in the emergency department the symptoms are unchanged. The patient has not experienced similar symptoms in the past. The patient has not recently seen a physician. Historical: - Allergies: 09:00 No Known Allergies; aa5 - PMHx: 09:00 Hypertension; Gallbladder cancer; aa5 - Immunization history:: Adult Immunizations unknown. - Social history:: Smoking status: Patient/guardian denies using tobacco. ROS: 09:06 Constitutional: Negative for fever, chills, and weight loss, Eyes: Negative for injury, kdr pain, redness, and discharge, ENT: Negative for injury, pain, and discharge, Neck: Negative for injury, pain, and swelling, Cardiovascular: Negative for chest pain, palpitations, and edema, Respiratory: Negative for shortness of breath, cough, wheezing, and pleuritic chest pain, Abdomen/GI: Negative for abdominal pain, nausea, vomiting, diarrhea, and constipation, Back: Negative for injury and pain, : Negative for injury, bleeding, discharge, and swelling, MS/Extremity: Negative for injury and deformity, Skin: Negative for injury, rash, and discoloration, Psych: Negative for depression, anxiety, suicide ideation, homicidal ideation, and hallucinations, Allergy/Immunology: Negative for hives, rash, and allergies, Endocrine: Negative for neck swelling, polydipsia, polyuria, polyphagia, and marked weight changes, Hematologic/Lymphatic: Negative for swollen nodes, abnormal bleeding, and unusual bruising. 09:06 Neuro: Positive for weakness, Left upper extremity does not feel normal but he is unable to exactly describe specific symptoms. Exam: 09:06 Constitutional: This is a well developed, well nourished patient who is awake, alert, kdr and in no acute distress. Head/Face: Normocephalic, atraumatic. MS/ Extremity: Pulses equal, no cyanosis. Neurovascular intact. Full, normal range of motion. 09:25 ECG was reviewed by the Attending Physician. kdr Vital Signs: 09:00 BP 142 / 80; Pulse 64; Resp 16 S; Temp 98.4(O); Pulse Ox 97% on R/A; aa5 10:35 BP 141 / 63; Pulse 60; Resp 18 S; Pulse Ox 99% on R/A; aa5 12:10 BP 138 / 62; Pulse 62; Resp 16 S; Pulse Ox 98% on R/A; aa5 16:00 BP 140 / 68; Pulse 60; Resp 18 S; Pulse Ox 99% on R/A; aa5 MDM: 15:02 Patient medically screened. kdr 20:40 Data reviewed: vital signs, nurses notes, lab test result(s), radiologic studies. kdr Counseling: I had a detailed discussion with the patient and/or guardian regarding: the historical points, exam findings, and any diagnostic results supporting the discharge/admit diagnosis, lab results, radiology results, the need for outpatient follow up. 09/16 08:59 Order name: Basic Metabolic Panel; Complete Time: 12:20 kdr 08 08:59 Order name: CBC with Diff; Complete Time: 12:20 kdr 09/16 08:59 Order name: LFT's; Complete Time: 12:20 kdr 09/16 08:59 Order name: Magnesium; Complete Time: 12:20 kdr 09/16 08:59 Order name: NT PRO-BNP; Complete Time: 12:20 kdr 09/16 08:59 Order name: PT-INR; Complete Time: 12:20 kdr 09/16 08:59 Order name: Troponin (emerg Dept Use Only); Complete Time: 12:20 kdr 08 08:59 Order name: XRAY Chest (1 view); Complete Time: 12:20 kdr 08 08:59 Order name: EKG; Complete Time: 08:59 kdr 08 08:59 Order name: Cardiac monitoring; Complete Time: 10:26 kdr 09/16 08:59 Order name: EKG - Nurse/Tech; Complete Time: 09:25 kdr 08 08:59 Order name: IV Saline Lock; Complete Time: 09:16 kdr 09/16 12:21 Order name: CT Head Brain wo Cont; Complete Time: 14:35 kdr 09/16 13:47 Order name: MRI - Brain Wo Cont; Complete Time: 15:01 kdr 09/16 08:59 Order name: Labs collected and sent; Complete Time: 09:16 kdr 09/16 08:59 Order name: O2 Per Protocol; Complete Time: 09:25 kdr 09/16 08:59 Order name: O2 Sat Monitoring; Complete Time: 09:25 kdr EC:25 Rate is 62 beats/min. Rhythm is irregularly irregular, A fib with No ectopy. QRS [place] kdr is Normal. DC interval is normal. QRS interval is normal. QT interval is normal. Clinical impression: Atrial Fibrillation. Administered Medications: No medications were administered Disposition Summary: 09/16/20 15:02 Discharge Ordered Location: Home kdr Problem: new kdr Symptoms: have improved kdr Condition: Stable kdr Diagnosis - Other malaise and fatigue kdr - Left arm paresthesia/altered sensation: Minor kdr Followup: kdr - With: Private Physician - When: 2 - 3 days - Reason: If symptoms return, Further diagnostic work-up, Recheck today's complaints, Continuance of care, Re-evaluation by your physician Discharge Instructions: - Discharge Summary Sheet kdr - Paresthesia, Asck-oh-Atpw kdr Forms: - Medication Reconciliation Form kdr - Thank You Letter kdr Signatures: Dispatcher [employer] Andrey Patricia MD MD kdr Aleah Vu, RN RN aa5
--- NOTE | 2020-09-16 15:03 | ER ---
Nurse's Notes [facility] Name: Moy White Age: 84 yrs Sex: Male : 1935 Arrival Date: 09/16/2020 Time: 08:32 Bed Treatment Private MD: Diagnosis: Other malaise and fatigue;Left arm paresthesia/altered sensation: Minor Presentation: 09/16 09:00 Chief complaint: Pt's daughter reports generalized weakness and general feeling of not aa5 feeling well. 09:00 Coronavirus screen: At this time, the client does not indicate any symptoms associated aa5 with coronavirus-19. Ebola Screen: Patient negative for fever greater than or equal to 101.5 degrees Fahrenheit, and additional compatible Ebola Virus Disease symptoms. Initial Sepsis Screen: Does the patient meet any 2 criteria? No. Patient's initial sepsis screen is negative. Does the patient have a suspected source of infection? No. Patient's initial sepsis screen is negative. Risk Assessment: Do you want to hurt yourself or someone else? Patient reports no desire to harm self or others. 09:00 Acuity: MARIAN 3 aa5 09:00 Method Of Arrival: Ambulatory aa5 09:00 Onset of symptoms was September 16, 2020. aa5 Historical: - Allergies: 09:00 No Known Allergies; aa5 - PMHx: 09:00 Hypertension; Gallbladder cancer; aa5 - Immunization history:: Adult Immunizations unknown. - Social history:: Smoking status: Patient/guardian denies using tobacco. Screenin:20 Abuse screen: Denies threats or abuse. Nutritional screening: No deficits noted. aa5 Tuberculosis screening: No symptoms or risk factors identified. Fall Risk None identified. Assessment: 10:15 General: Appears comfortable, Behavior is calm, cooperative. Pain: Denies pain. Neuro: aa5 Level of Consciousness is awake, alert, obeys commands, Oriented to person, place, time, situation, Prosthetic Technician are weak bilaterally Moves all extremities. Gait is steady, Speech is normal, Facial symmetry appears normal, Reports weakness. Cardiovascular: Patient's skin is warm and dry. Respiratory: Airway is patent Respiratory effort is even, unlabored, Respiratory pattern is regular, symmetrical. GI: No signs and/or symptoms were reported involving the gastrointestinal system. : No signs and/or symptoms were reported regarding the genitourinary system. EENT: No signs and/or symptoms were reported regarding the EENT system. Derm: Skin is pink, warm \T\ dry. Musculoskeletal: Range of motion: intact in all extremities. 10:35 Reassessment: Patient is alert, oriented x 3, equal unlabored respirations, skin aa5 warm/dry/pink. Pt's daughter at bedside, awaiting disposition. . 12:15 Reassessment: Patient is alert, oriented x 3, equal unlabored respirations, skin aa5 warm/dry/pink. Pt to CT scan . 14:10 Reassessment: Pt currently at MRI. aa5 16:04 Reassessment: Patient is alert, oriented x 3, equal unlabored respirations, skin aa5 warm/dry/pink. Vital Signs: 09:00 BP 142 / 80; Pulse 64; Resp 16 S; Temp 98.4(O); Pulse Ox 97% on R/A; aa5 10:35 BP 141 / 63; Pulse 60; Resp 18 S; Pulse Ox 99% on R/A; aa5 12:10 BP 138 / 62; Pulse 62; Resp 16 S; Pulse Ox 98% on R/A; aa5 16:00 BP 140 / 68; Pulse 60; Resp 18 S; Pulse Ox 99% on R/A; aa5 ED Course: 08:32 Patient arrived in ED. as 08:52 Andrey Sellers MD is Attending Physician. kdr 09:00 Arm band placed on. aa5 09:16 Inserted saline lock: 20 gauge in right antecubital area, using aseptic technique. mt Blood collected. 09:23 EKG completed in triage. Results shown to . aa5 09:50 XRAY Chest (1 view) In Process Unspecified. EDMS 10:20 Patient has correct armband on for positive identification. Placed in gown. Bed in low aa5 position. Call light in reach. Side rails up X2. Adult w/ patient. youth nutritional monitor on. Pulse ox on. NIBP on. 10:26 Aleah Vu, RN is Primary Nurse. aa5 10:51 Triage completed. aa5 12:33 CT Head Brain wo Cont In Process Unspecified. EDMS 14:27 MRI - Brain Wo Cont In Process Unspecified. EDMS 16:04 No provider procedures requiring assistance completed. IV discontinued, intact, aa5 bleeding controlled, No redness/swelling at site. Pressure dressing applied. Administered Medications: No medications were administered Outcome: 15:02 Discharge ordered by . kdr 16:04 Discharged to home ambulatory, with steady gait, accompanied by daughter aa5 16:04 Condition: stable 16:04 Discharge instructions given to patient, family, Instructed on discharge instructions, follow up and referral plans. Demonstrated understanding of instructions, follow-up care. 16:06 Patient left the ED. [email or web address] Signatures: Dispatcher [employer] EDMS Andrey Sellers MD MD kdr Martinez, Amelia as Calderon, Audri, RN RN aa5 Vy James mt Corrections: (The following items were deleted from the chart) 19:58 14:30 Reassessment: Pt currently at MRI. aa5 aa5
[2020-09-16 16:11] VITALS: TEMP 98.4
[2020-09-16 16:13] VITALS: BP 141/63; O2SAT 99
== END 2020-09-16 16:06 | disposition home or self-care (01) ==
LOC: ER 08:30
DX: R20.2 Paresthesia of skin (principal); R53.81 Other malaise; R53.83 Other fatigue; I10 Essential (primary) hypertension; Z85.09 Personal history of malignant neoplasm of other digestive organs
CPT/HCPCS: 36415; 70450; 70551; 71045; 80048; 80076; 83735; 83880; 84484; 85025; 85610; 93005; 99284

== ENCOUNTER 2020-09-17 06:35 | Emergency (ER) | payer OTHER ==
--- OUTSIDE RECORDS SUMMARY | 2020-09-17 06:39 | XMS REPORT | Continuity of Care Document ---
:1935 Author Organization [facility] t Address [address] [place] [address] Care Team Providers Name Role Phone JOCELYN OCAMPO Attending Clinician Unavailable Jocelyn Ocampo MD Attending Clinician CIRILO GILES Attending Clinician Unavailable Cirilo Giles MD Attending Clinician [phone] Jessica Reyes MD Attending Clinician [phone] Shawn Gorman MD Attending Clinician Marbella Beth MD Attending Clinician Ivett Manley MD Attending Clinician Mary Gray Attending Clinician MARBELLA BETH Admitting Clinician Unavailable Payers Payer Name Policy Type Policy Effective Date Expiration Date Sour ce Number MEDICARE PART A \T\ B [id number] - MEDICARE MEDICAREMEDICARE A [id number] 1999 KARINE Saavedra [id number] 1999-P 00:00:00 - [facility] Problems Condition Condition Condition Status Onset Resolution Last Treating Co mments Source Name Details Category Date Date Treatment Clinician Date Choledocho Choledocho Disease Active [facility] lithiasis lithiasis 07-11 Will s - 00:00: Medical [address] [place] [address] Abdominal Abdominal Disease Active [facility] pain pain 07-11 - 00:: Medical [address] [place] Gallbladde Gallbladde Disease Active [facility] r mass r mass 07-11 - :: Medical 00 [place] Allergies, Adverse Reactions, Alerts Allergy Allergy Status Severity Reaction(s) Onset Inactive Treating Comm ents Source Name Type Date Date Clinician Penicill Drug Active Other (See dizziness [facility] ins Allergy Comments) 07-11 - 00:: Medical 00 [place] Social History Social Habit Start Date Stop Date Quantity Comments Source History of User of smokeless [facility] tobacco use tobacco [facility] r Sex Assigned At [facility] Tobacco use and 2020-07-13 2020-07-[address] [facility] - exposure 00:00:00 00:00:00 [facility] Smoking Status Start Date Stop Date Source Former smoker 2020-07-13 00:00:00 2020-07-13 00:00:00 [facility] Medications Ordered Filled Start Stop Current [...] HI St -acetaminop 6-03 06-10 tablet by Catrachita kes - hen (NORCO 00:00: 23:59 mouth Medic al 5-325) 00 :00 every 4 Center 5-325 mg (four) per tablet hours as needed (for severe abdominal pain) for up to 7 days. Max Daily Amount: 6 tablets Vital Signs Vital Name Observation Time Observation Value Comments Source Systolic blood 2020-07-14 08:08:00 168 mm[Hg] [facility] Diastolic blood 2020-07-14 08:08:00 80 mm[Hg] [facility] Heart rate 2020-07-14 08:08:00 72 /min [facility] Body temperature 2020-07-14 08:08:00 36.61 Gela [place] [facility] Respiratory rate 2020-07-14 08:08:00 18 /min [place] [facility] Oxygen saturation in 2020-07-14 08:08:00 93 /min [facility] Arterial blood by Medical Ce nter Pulse oximetry Body height 2020-07-13 13:00:00 157.5 cm [facility] Body weight 2020-07-11 03:48:00 66.8 kg [facility] BMI 2020-07-11 03:48:00 26.94 kg/m2 [facility] Procedures Procedure Date / Time Performing Clinician Source Performed REPORT OF PROCEDURE - 2020-07-29 12:15:26 Andrea Gray [facility] REPORT OF PROCEDURE - 2020-07-29 11:28:57 Andrea Gray [facility] CBC (HEMOGRAM ONLY) 2020-07-14 03:59:00 Barbi Gorman [facility] COMPREHENSIVE METABOLIC 2020-07-14 03:58:00 Barbi Gorman [facility] TSH/FREE T4 IF INDICATED 2020-07-14 03:58:00 Florinda Waters [facility] NM MYOCARDIAL PERFUSION 2020-07-13 15:55:00 Florinda Waters [facility] - PET/CT (REST & STRESS) [facility] enter TREADMILL 2020-07-13 15:30:34 Unknown, Hl7 [facility] TOLERANCE(NON-NUCLEAR Medical Ce nter TREADMILL) ECG 12-LEAD 2020-07-13 15:16:00 Unknown, Hl7 [facility] COMPREHENSIVE METABOLIC 2020-07-13 10:28:00 Barbi Gorman [facility] CBC (HEMOGRAM ONLY) 2020-07-13 10:28:00 Sherif Barbi Escobar [facility] 2D ECHO W/ DOPPLER 2020-07-13 09:06:21 Florinda Waters [facility] (CW/PW/COLOR) [facility] ECG 12-LEAD 2020-07-12 22:55:06 Unknown, Hl7 [facility] ECG 12-LEAD 2020-07-12 22:53:09 Unknown, 7 [facility] XR CHEST 1 VIEW 2020-07-12 22:40:00 Moody Moreno [facility] es - PORTABLE/BEDSIDE Medical Center HIGH SENSITIVITY TROPONIN I 2020-07-12 22:34:00 Moody Moreno [place] [facility] FINE NEEDLE ASPIRATE (FNA) 2020-07-12 17:44:49 Marina, [facility] FINE NEEDLE ASPIRATION BY 2020-07-12 17:44:00 Marina, [facility] [place] ERCP 2020-07-12 17:42:00 Marina, [facility] FINE NEEDLE ASPIRATE (FNA) 2020-07-12 17:03:19 Marina, [facility] FINE NEEDLE ASPIRATION BY 2020-07-12 17:03:00 Marina, [facility] UPPER ENDOSCOPY,FNA 2020-07-12 16:20:00 Marina, [facility] W/ULTRASOUND Medical Center ERCP,PAPILLOTOMY 2020-07-12 16:20:00 Marina, [facility] PROCEDURE W/ C-ARM 2020-07-12 16:20:00 Marina [facility] ERCP,BALLOON SWEEPING 2020-07-12 16:20:00 Marina, [facility] ERCP,BILIARY STENT 2020-07-12 16:20:00 Marina [facility] CARCINOEMBRYONIC ANTIGEN 2020-07-12 12:52:00 Florecita Roberts [facility] (CEA) [facility] CARBOHYDRATE ANTIGEN 19-9 2020-07-12 12:52:00 Florecita Roberts [facility] (CA 19-9) [facility] ECG 12-LEAD 2020-07-12 11:38:45 Florinda Waters [facility] CT ABDOMEN - PANCREAS 2020-07-11 20:34:00 Abu-Wing Rosa [facility] LIPASE 2020-07-11 15:14:00 Gagandeep Cotter [facility] SARS-COV2/RT-PCR ([facility] & 2020-07-11 15:07:00 Gadicherla Jessica C [facility] - REF LABS) [facility] MR ABDOMEN WO CONTRAST MRCP 2020-07-11 11:20:00 Ben Beth [facility] CBC W/PLT COUNT & AUTO 2020-07-11 06:28:00 Haider Beth [facility] COMPREHENSIVE METABOLIC 2020-07-11 06:28:00 Haider Beth [facility] LACTIC ACID, VENOUS 2020-07-11 06:28:00 Haider Beth [facility] PROTHROMBIN TIME/INR 2020-07-11 06:28:00 Haider Beth [facility] REPORT OF PROCEDURE - 2020-07-11 00:00:00 Provider, Omar [facility] ENDOSCOPY SCAN Scanning [facility] Plan of Care Planned Activity Planned Date Details Comments Source Future Scheduled 2020-10-12 INFLUENZA VACCINE (#1) C HI [facility] - Test 00:00:00 [code = [...] 00:00:00 (1 of 1 - Medical Center RBYS79_Jsofcxy PCV13) [code = PNEUMOCOCCAL 65+ YRS (1 of 1 - EYYM25_Yjcgxzl PCV13)] Future Scheduled 1984 SHINGLES VACCINES (1 [...] Facility Department ID 2020-08-31 2020-08-31 Outpatient ANNE OCAMPO [facility] [id number] [facility] 11:06:52 12:03:30 [facility] 2020-08-10 2020-08-10 Outpatient KATINA [facility] [id number] [facility] 08:52:21 10:10:46 [facility] [employer] [...] Exercise AMLODIPINEhydralazineLABETALOLLISINO PRILC onfirmed by fellow Titi Yanez (2022) on 07/13/2020 4:00:14 PMConfirm ed by MD ALEKSEY, CHRIST ([id number]) on 10:18:04 AM Fine Needle Aspirate by Clinician 2020-07-14 19:01:00 Test Item Value Reference Range Interpretation Comme nts Case Report (test code = 104) Medical Cytology Report Case: [id number] Authorizing Provider: Andrea Gray Collected: 07/12/2020 05:44 PM Ordering Location: [address] Received: 07/12/2020 06:52 PM Service Pathologist: Pierre Paulson MD Specimen: Bile, Bile aspirate DIAGNOSIS (test code = 3220) z6bixYNnCXGka4euOVSgmQHvHkBgKuJsQeTjGb p cdWMxIHtccnRmMVxlcGljOTIwMlxhbnNpXHNwbH EnW8GvphrtLBloPF1yJV9orEmctCTrzRSqABHvU fVlh2uhf419uKCjx4ukPSXTkeacoRx2gCfmP04a t8E6JhssG69llUCvFJuizXEozmyfyqYqMDCGSSE eYqrLDILcIRDZOV5LFMbIIfb6ZJNkbjKpDXSkVK MeDY8JMR9KANrUCyVLZHWCVSuEOaNGRSAJEKrXX RAYXIfaMRC3t5yklPDsHKCtwJBvTNNqIJigyoFe OCLuCuxiswwmXFRoHMU0toCkSERmCTcsZHUxPQw wIx7ecXDazTqrFpJbQVEww1mldgKQwwsghVk0c7 vrPHOzRgE3jEJxHXszE3mirmRehSItUTVtCHd4l K85XIEnbF0brUHtZUvvpyUkJrA0NBteTNKcVoL8 RDWtpKHmHQYgZ1xqNCSfXPnlQSDjROupyUFmPYC 4zTkob7C7tZCxpYPowOazJfWvKnRzBgCUh0VzQW f3fUvfU7ZfYNKmGmG7jYYjFYWoDJcnZTHeLOFcp wC9pQ77RXkixeY2sBNyd1Lyf94cq353hD3piMUe SJD0RQXzUEZosNZoHYWlWNH2OOKbgIOaC2wwFPN bWW4vjpibYKtpXDwoDYWhaRM7YSDquVQyP0EwFJ EpWSmpFJLreyo8GrNdQw7huHYivOflJVntf7gen 0ogeIOdAlp5AJRiNbNrEmssUDjyd6Chw7krQZQa vo0bHAO9cJMnvKdhu0Y0eQXnVRVdzMEmJQNjSZ8 rlKQnRIGycW5gdqwuGCAcLaCflufcSEUhkOoivt DtLf3dqJhnDCD4LUntK0uguM8dAfN7DDzrE8gxr P3bSPb8UXxzIHUrwJJ8slN0XBAtlMNbA0EkjG2t MSCcSA4udwj0g0pzRCT9NSizICXcUaV3hvM9FAC qnJFaSEVzrZuxPWgtf486GVE0KoKqSZBwt9CtX9 NpbKvxA88wmFmbD86qDGOknDpriB6kgSncrC7sJ jHxBgHzIArwcDzxWJ4mCMHbJ0xhcKTjDZUhRQEi H1awBjUeiO7bkZesPKozajLxXDZoSgd7ZBNphWV gWADlRze2ZMIoBTTvE15kzkhlUJI7mC4kb5mzl2 NqPWvlNKD8PQWos25sPExfhzJ1TMhoUp7vMAAeH Ab1CJhcbINcnW5= COMMENT (test code = 3359) q3ljiQQgOHMciTZ4UeXgCLXck9lhp7NxfTJztEP kDJcozGTwrlWyra30vOP0hK04YE8nFKEvUoW0GK TclqR0Npl6QYZpZPMrhBXmY680b4ept8ymjdGmh DL3aCwgULUzMTFfEGfxJQFmPiGeLMvoLSQyVGBt CYWadZGqsHM2gF8cn3x9PHYte8SeOlSiQGReAIo 4SfyrFTM5 CPT Code(s) (test code = 9420) e8vxkLDoFMUidHB2UjTcPOLpg6ydx0OapKJu cGF dACchqXBnuiWzdy68gAA0hJ40CQ0oIVKaDyQ0ZA YcmjH9Xbr8FIGdRQRszMOzU067b2yxd3lohzMsc BZ5dZexDMWoFBEsKMddMEXpAbHoWLqbJWmolYCd fQ== CLINICAL DATA (test code = 3354) v0thuAPpDBVznKF8TkQgNKKuy1qbf6DgiT BncGF aIDpjdPXgbeXtwl13vRF6fH90GU9xRIBmSsC4OU FgfxX9Jqe4JHJzHCBjbTJmK984j5lhn3lzilJyq DZ6oUocLEHlGZTmDSmoMALbIbMsLUUIKDysgUnr aS7gjM0uJUDgsWShgZ8epOAts4QkEPQcQW6dkRY sCyD8TfQzJ82vY9DpyNSqQIIgRJCisDPjqcpmVy brDISkZB81HMZuiyJygJExrA9wzDuqMBF7 SPECIMEN SOURCE (test code = 3377) l9qdbDPvQKOhfPY7QzXqQBSai2wyk2Qr dHBncGF oWGnkkJLbyrZrxg48pPZ6tU58TU1uUJSlKrR3CL VgwnC2Osp0NBKbHVIktNWbA484s9klp8fwhjLtj HW4vImiERFdGZQaXEvjPMQpDjBiEpqDKOPPGLRX RFxwYXJ9 GROSS DESCRIPTION (test code = 3366) q5hhxOXmWXDsdON4SqBtCEFzu5ohl7 BsdHBncGF jBFncuWZnjcChum36mGK8xR36TO4kHUMjNtD6JO SnvoB5Zkq2EBLjMWTghDAhM588c1gcn9pdvcOpv QJ8lVorPCMcBFCnFPliESAySxVfNkMeEAz7VLNs FeRtgOjwF1f1h4SsP2alwcZdINFaeOY1oCXeXEL daRCjNYozeWQqgHJmDTDtWOYkbLOnp1NatjEwSB Bhcn0= MICROSCOPIC DESCRIPTION (test code = l3ajpACaNIPjcPB9LmLeESMbp1sfc0 BsdHBncGF 3371) uZSfcyZCflvJohq41jIU3iV29RI7rRQSvCuG0ZQ FdumI3Ysd1WBHuVKFesMMcT956g8pgn9ealzYmw FO5hHzzCOOqBDWtWYcvRMMiPrDxFGItLn4mzTWh LiBccGFyfQ== Gross assessment was performed at (test [facility] enter, code = 2777) Department of Pathology, [address] [place] [address], Technical component was performed at [facility] er, (test code = 2778) Department of Pathology, [address] [place] [address], Professional component was performed at [facility] C enter, (test code = 2779) Department of Pathology, [address] [place] [address], [place] campusFINE NEEDLE ASPIRATION BY [id number] 19:01:00Medical Cytology Report Case: [id number] Authorizing Provider: Andrea Gray Collected: 07/12/2020 05:44 PM Ordering Location: [address] Received: 07/12/2020 06:52 PM Service Pathologist: Pierre Paulson MD Specimen: Bile, Bile aspirate BILE FLUID (CYTOSPINS): - NO MALIGNANT CELLS IDENTIFIED Signing Pathologist Direct Phone Line: [phone] signed by Pierre Paulson MD on 07/14/2020 at 7:00 PMPlease see cytopathology case [id number] with portocaval lymph node, sampled; 4.2 cm gallbladder mass; bile sent for cytologyBILE FLUIDReceived 20 ml cytorich red fixative sample; prepared 4 cytospins Performed. [facility], Department of Pathology, [address] [place] [address], [facility], [facility] of [facility]ology, [address] [place] [address], [address] [facility], [facility] of [facility], [address] [place] [address], UWIR NEEDLE ASPIRATION BY [id number] 18:52:00Medical Cytology Report Case: [id number] Authorizing Provider: Andrea Gray Collected: 07/12/2020 05:03 PM Ordering Location: [address] Received: 07/12/2020 06:52 PM Service Pathologist: Pierre Paulson MD Specimen: Lymph Node, Amadeo Caval lymph node FNA in CRR LYMPH NODE, PORTOC AVAL, FNA BY CLINICIAN (CYTOSPINS AND CELL BLOCK OF ASPIRATE): - ADENOCARCINOMA (SEE COMMENT)Signing Pathologist Direct Phone Line: [phone] signed by Pierre Paulson MD on 07/14/2020 at 6:52 PMNo background lymphoid tissue is seen. Patient has a 5.0 cm gallbladder mass, abutting the hepatic flexure of the colon. Immunostains and imaging suggest a biliary primary.Please see cytopathology case [id number], [id number], 39899, 14790 x 3EUS with portocaval lymph node, sampled; 4.2 cm gallbladder mass; bile sent for cytology LYMPH NODE, PORTOCAVAL, FNA Received 20 ml cytorich red fixative sample; prepared 4 cytospins and cell block(A2) - cell block fixed in formalin at 10:40 am on 07/13/20Performed. The interpretation of this case included the use of immunohistochemistry or special stains.Ck7- diffuse yjrlxxlgGy90- focal positiveCDX2- uxyyuryuDp53- focal positiveControl Slides Examined: In-house known positive controls were evaluated along with the test tissue. These control slides run alongside of the patients sample show appropriate staining. Internal positive and negative controls when available are evaluated Immunohistochemistry technical testing was performed at [facility], Pathology Laboratory where it was developed and [...] qualified to perform high complexity clinical laboratory testing.[facility], Department of Pathology,[address] [place] [address], [facility], Departmentof Pathology, [address] [place] [address], TbvmbzUkiah Valley [facility], Department of Pathology, [address] [place] [address], Kyejmnrddmbd antigen 19-9 (CA 19-9)2020-07-14 16:07:00 Test Item Value Reference Interpretation Comments Range CA 19-9 (test code 38 U/mL <34 H This man t was = 52653-8) performed using the Siemens Chemiluminescen t method.Values obtained from different assay methods cannot be used interchangeably .CA19- 9 levels, regar dless of value, radha d not be interpreted as absoluteevidenc e of the presence or absence of dise ase. WINSTON (test code = Performing Lab WINSTON) [facility] [address] [place] [address] Ignacio Blake MD, PhD, RAYMUNDO Lab Interpretation Abnormal (test code = 96556-0) [place] campusPET/CT, CARDIAC PERF REST AND [id number] 09:42:00DrXimena Cordoba for exam:->pre-op risk stratification [facility] : 1935 Sex: MFINAL REPORT PROCEDURE: MYOCARDIAL PERFUSION PET IMAGING (Rest/Stress) CPT CODE: 10704 INDICATION: Preoperative risk stratification CARDIOVASCULAR PROFILE:CAD History: [...] Goodwin Verified Date/Time: 07/14/2020 09:42:31 Reading Location: [address] Reading Room N Myocardial Perfusion Pet/CT (Rest & Stress) 2020-07-14 09:42:00Interface, External Ris In - 07/14/2020 9:44 AM CDTFINAL REPORT PROCEDURE: MYOCARDIAL PERFUSION PET IMAGING (Rest/Stress)CPT CODE: 54139 INDICATION: Preoperative risk stratification CARDIOVASCULAR PROFILE:CAD History: [...] MDReport Verified Date/Time: 07/14/2020 09:42:31 Reading Location: [address] Reading Room [facility] TSH/Free T4 If [id number] 06:16:00 Test Item Value Reference Range Interpretation Comments TSH (test code = 2.192 See_Comment [Automated 71797-4) message] The system which generated this result transmit nano reference range : 0.350 - 4.940 uIU/mL. The reference range was not used to interpret this result as normal/abnormal . WINSTON (test code = WINSTON) Automotive Brake Specialist ID - XIOMARA Lab Interpretation Normal (test code = 46659-4) [place] campusTSH/FREE T4 IF [id number] 06:16:00 Test Item Value Reference Range Interpretation Comments THYROID STIMULATING HORMONE 2.192 uIU/mL 0.350-4.940 (BEAKER) (test code = 772) Automotive Brake Specialist ID - XIOMARA omprehensive metabolic [id number] 05:02:00 Test Item Value Reference Range Interpretation [...] 3.3 g/dL 3.5-5 L Specime n slightly 68510-0) hemolyzed Alkaline Phosphatase 115 U/L 40-150 (test code = 6768-6) Total Bilirubin (test 1.2 mg/dL 0.2-1.2 Specim en slightly code = 1974-2) hemolyzed Sodium (test code = 138 meq/L 907-129 0489-2) Potassium (test code 3.6 meq/L 3.5-5.1 Specime [...] Calcium (test code = 8.7 mg/dL 8.4-10.2 52133-2) AST (test code = 24 U/L 5-34 Specimen sl ightly 1920-8) hemolyzed ALT (test code = 71 U/L 6-55 H Specimen sl ightly 1742-6) hemolyzed EGFR (test code = 104 mL/min/1.73 [place] [address]-1) NOT ACCURATE CREATININE CLEARANCE IN PREDICTING GLOMERULAR FILTRATION RATE . ESTIMATED GFR I S NOT APPLICABLE FOR DIALYSIS PATIEN WINSTON (test code = WINSTON) Automotive Brake Specialist ID - XIOMARA M Lab Interpretation Abnormal (test code = 73343-6) [place] campusCOMPREHENSIVE METABOLIC [id number] 05:02:00 Test Item Value Reference Range Interpretation [...] S NOT APPLICABLE FOR DIALYSIS PATIEN TS. Automotive Brake Specialist ID - XIOMARA [facility] (Hemogram only)2020-07-14 04:41:00 Test Item Value Reference Range Interpretation Comments WBC (test code = 6690-2) 9.5 See_Comment [A utomated message] The system [employer] generated this result transmitted ref erence range: 3.5 - 10 .5 K/L. The refe rence range was not u sed to interpret this result as normal/abnor mal. RBC (test code = 789-8) 4.35 See_Comment L [Au tomated message] The system [employer] generated this result transmitted ref erence range: 4.63 - 6 .08 M/L. The refe rence range was not u sed to interpret this result as normal/abnor mal. MCHC (test code = 786-4) 34.4 See_Comment L [A utomated message] The system [employer] generated this result transmitted ref erence range: [...] See_Comment [Aut omated message] 777-3) The system [employer] generated this result transmitted ref erence range: 150 - 45 0 K/CU MM. The referen ce range was not u sed to interpret this result as normal/abnor mal. MPV (test code = 10.2 fL 9.4-12.4 03761-7) nRBC (test code = 413) 0 See_Comment [Aut omated message] The system [employer] generated this result transmitted ref erence range: 0 - 0 /1 00 WBC. The refere nce range was not u sed to interpret this result as normal/abnor mal. Lab Interpretation (test Abnormal code = 70030-7) [facility] (HEMOGRAM ONLY)2020-07-14 04:41:00 Test Item Value Reference [...] Study 07/13/2020 PALOMO Gender Male Visit Number [id number] Race Unknown Room Number 1527 Number Date of 1935 Referring Physician Florinda Waters NP Age 84 year(s) Seconds Inspector Martin Rey, [facility] Project Management Intern Meg Packer, Interpreting Brodie Martinez MD [facility] Physician Procedure Type of Study TTE procedure:2DECHO [...] TR Velocity: 2.49 m/s TR Gradient: 24.81 mmHgLos [place] campusECG 12 [id number] 16:32:30Interface, External Ris In - 07/13/2020 4:32 PM CDTVentricular Rate 80 BPMAtrial Rate 81 BPMQRS Duration 82 msQ-T Interval 366 msQTC Calculation(Bazett) 422 msR [place] 68 degreesT [place] 57 degreesAtrial f ibrillationSeptal infarct , age undeterminedAbnormal ECGWhen compared with ECG of 13-Xul-9555Jf significant changesConfirmed by Mere BRENNER, TOM ([id number]) on 07/13/2020 4:32:27 [facility] 2020-07-13 10:58:00 Test [...] S NOT APPLICABLE FOR DIALYSIS PATIEN TS. Automotive Brake Specialist ID - FSECBC (HEMOGRAM ONLY)2020-07-13 10:39:00 [...] = 413) RAD, CHEST, 1 VIEW, NON [id number] 00:03:00Reason for exam:->chest painShould this be performed at the bedside?->Yes [facility] : 1935 Sex: MFINAL [...] 00:03:29 XR chest 1 view portable / [id number] 00:03:00Interface, External Ris In - 07/13/2020 12:05 [...] Signed: Vito Downs Verified Date/Time: 07/13/2020 00:03:29 [facility] ([facility]/Homero Only)2020-07-12 23:05:00 Test Item Value Reference Range Interpretation Comments Troponin I HS 5 pg/ml See_Comment [Automated (test code = message] The 60310-9) system which generated this result transmitted reference range : <=35. The reference range was not used to interpret this result as normal/abnormal . WINSTON (test code = Automotive Brake Specialist ID - WINSTON) BSThe MANAGER [place] STAT High Sensitivity Troponin-I results should be used in conjunction with other diagnostic information such as ECG, clinical observations and information, and patient symptoms to aid in the diagnosis of [place]. Lab Interpretation Normal (test code = 42813-0) [place] campusHIGH SENSITIVITY TROPONIN [id number] 23:05:00 Test Item Value Reference Range Interpretation Comments HIGH SENSITIVITY 5 pg/ml See_Comment [Automated message] TROPONIN I (test code = The system which 8141197) generated this result transmitted ref erence range: <=35. Th e reference range was not used to interpr et this result as normal/abnormal . Automotive Brake Specialist ID - BSThe MANAGER [place] STAT High Sensitivity Troponin-I results should be used in conjunctionwith other diagnostic information such as ECG, clinical observations and information, and patient symptoms to aid in the diagnosis of IN.FINE NEEDLE ASPIRATE (FNA) [id number] 20:01:00 Test Item Value Reference Range Interpretation Comments Cytology (test code = See Separate Report 2629) [place] campusFINE NEEDLE ASPIRATE (FNA) [id number] 20:01:00 Test Item Value Reference Range Interpretation Comments CYTOLOGY RESULT POINTER See Separate Report (BEAKER) (test code = 2629) FINE NEEDLE ASPIRATE (FNA) [id number] 20:01:00 Test Item Value Reference Range Interpretation Comments CYTOLOGY RESULT POINTER See Separate Report (BEAKER) (test code = 2629) [place], [id number] 17:42:00Reason for exam:->Abnormal imagery [facility] : 1935 Sex: MFluoroscopic unit utilized for a procedure performed in the OR. No interpretation was requested. Refer to the operative report for findings. Refer to PACS for patient radiation dose information.UT [id number] 17:42:00Interface, External Ris In - 07/12/2020 6:06 PM CDTFluoroscopic unit utilized for a procedure performed in the OR. No interpretation was requested. Refer to the operative report for findings. Referto PACS for patient radiation dose information.[place] campusCT, ABDOMEN, PANCREAS [id number] 14:16:00Unlisted Reason for Exam - Click Yes and Enter Reason Below->YesUnlisted Reason for Exam->Possible gallbladder mass versus stricture on MRCP and US. [facility] : 1935 Sex: MAddendum BeginsREPORT STATUS:A An abdominal aortic aneurysm measures 3 cm in diameter. A follow-up examination is recommended every 3 years. Signed: J Luis Christopher Verified Date/Time: 07/12/2020 14:16:51 Reading Location: [address] Body Reading RoomAddendum EndsFINAL REPORT [...] Luis ChristopherVerified Date/Time: 07/12/2020 10:42:39 Reading Location: [place] [id number] [place] Body Reading Room Carcinoembryonic Antigen (CEA)2020-07-12 13:36:00 Test Item Value Reference Range Interpretation Comments CEA, SERUM (test code = 16.3 ng/mL 0-5 H 2038-07) WINSTON (test code = WINSTON) Automotive Brake Specialist ID - ADMIN Lab Interpretation (test Abnormal code = 24424-8) [place] campusCARCINOEMBRYONIC ANTIGEN (CEA)2020-07-12 13:36:00 Test Item Value Reference Range Interpretation Comments CARCINOEMBRYONIC ANTIGEN (BEAKER) 16.3 ng/mL 0.0-5.0 H (test code = 685) [employer] Specialist ID - ADMINCT abdomen - pancreas [id number] 10:42:00Interface, External Ris In - 07/12/2020 2:18 PM CDTAddendum BeginsREPORT STATUS:A An abdominal aortic aneurysm measures 3 cm in diameter. A follow-up examination is recommendedevery 3 years. Signed: J Luis Christopher Verified Date/Time: 07/12/2020 14:16:51 Reading Location: [facility] B1 C013Y CT Body Reading RoomAddendum [...] Christopher Verified Date/Time: 07/12/2020 10:42:39 Reading Location: [facility] B1 C013Y CT Body [facility]2020-07-11 17:34:00 Test Item Value Reference Range Interpretation Comments SARS-COV2/RT-PCR Negative Not Detected, (test code = Negative, See 47743-7) external report for linked test SARS-COV-2 [facility] PERFORMING LAB (test code = 68609-1) [place] (test code = Negative results do [...] of the Act. Fact Sheet for Healthcare Providers:https://www.Clique Intelligence.ZenSuite/Documents/Xper t%20Xpress%20SARS%20CoV- 2/Fact%20Sheets/302-2782 %63FLCX-IRV-0%20HEALTHCA RE%20PROVIDERS%20FACT%20 SHEET.pdf Fact Sheet for Healthcare Patients:https://www.InGaugeIt/Documents/Xpert %20Xpress%20SARS%20CoV-2 /Fact%20Sheets/302-3801% 77ZECM-FLL-7%20PATIENT%2 0FACT%20SHEET.pdf Performing Laboratory:[facility] [place] [address] [facility])2020-07-11 17:34:00 Test Item Value Reference Range Interpretation Comments SARS-COV2/RT-PCR (test code Negative Not Detected, Negative, = 8983247) See external report for linked test SARS-COV-2 PERFORMING LAB [facility] (test code = 7905519) Negative results do not preclude SARS-CoV-2 infection [...] of the Act.Fact Sheet for Healthcare Pro viders:https://www.Big Switch Networks.ZenSuite/Documents/Xpert%20Xpress%20SARS%20CoV-2/Fact%20Sh eets/3023802%82OVYO-VUG-6%20HEALTHCARE%20PROVIDERS%20FACT%20SHEET.pdfFact Sheet for Healthcare Patients:https://www.LessonLab.ZenSuite/Documents/Xpert%20Xpress%20SARS%20CoV-2/Fact%20Sheets/302-3801%20SARS-COV -2%20PATIENT%20FACT%20SHEET.pdfPerforming Laboratory:[facility], [place] [id number] 15:36:00 Test Item Value Reference Range Interpretation Comments Lipase (test code = 3040-3) 975 U/L 8-78 H [place] (test code = WINST[place]) [employer] Specialist ID - DB Lab Interpretation (test Abnormal code = 56979-8) [place] [facility] 15:36:00 Test Item Value Reference Range Interpretation Comments LIPASE (BEAKER) (test code = 749) 975 U/L 8-78 H [employer] Specialist ID - DBMR, ABDOMEN, [id number] 13:59:00Has gallbladder mass as well as choledocholithiasis with dilated CBDUnlisted Reason for Exam - ClickYes and Enter Reason Below->No [facility] : 1935 Sex: MFINAL [...] MDReport Verified Date/Time: 07/11/2020 13:59:31 Reading Location: [address] Consult Reading Room MR abdomen without IV contrast [id number] 13:59:00Interface, External Ris In - 07/11/2020 2:01 [...] MDReport Verified Date/Time: 07/11/2020 13:59:31 Reading Location: [facility] B1 C013W Consult Reading Room [facility] Lactic acid, [id number] 07:02:00 Test Item Value Reference Range Interpretation Comments Lactate, Venous (test code = 1.09 mmol/L 0.5-2.2 2872) [place] (test code = W[place]) [employer] Specialist ID - DB Lab Interpretation (test Normal code = 84974-2) [place] [facility]LACTIC ACID, [id number] 07:02:00 Test Item Value Reference Range Interpretation Comments LACTATE BLOOD VENOUS (2) (BEAKER) 1.09 mmol/L 0.50-2.20 (test code = 2872) [employer]ist ID - DBCOMPREHENSIVE METABOLIC [id number] 07:02:00 Test Item Value Reference Range Interpretation [...] S NOT APPLICABLE FOR DIALYSIS PATIEN TS. [employer] Specialist ID - DBCBC with platelet count + automated [id number] 07:00:00 Test Item Value Reference Range Interpretation Comments WBC (test code = 6690-2) 12.0 See_Comment H [A utomated message] The system [employer] generated this result transmitted ref erence range: 3.5 - 10 .5 K/L. The refe rence range was not u sed to interpret this result as normal/abnor mal. RBC (test code = 789-8) 5.02 See_Comment [Au tomated message] The system [employer] generated this result transmitted ref erence range: 4.63 - 6 .08 M/L. The refe rence range was not u sed to interpret this result as normal/abnor mal. MCHC (test code = 786-4) 33.7 See_Comment [A utomated message] The system [employer] generated this result transmitted ref erence range: [...] See_Comment [Aut omated message] 777-3) The system [employer] generated this result transmitted ref erence range: 150 - 45 0 K/CU MM. The referen ce range was not u sed to interpret this result as normal/abnor mal. MPV (test code = 9.9 fL 9.4-12.4 19557-9) nRBC (test code = 413) 0 See_Comment [Aut omated message] The system [employer] generated this result transmitted ref erence range: [...] H [Aut omated message] 670) The system [employer] generated this result transmitted ref erence range: 1.78 - 5 .38 K/L. The refe rence range was not u sed to interpret this result as normal/abnor mal. # Lymphs (test code = 0.62 See_Comment L [Auto mated message] 414) The system [employer] generated this result transmitted ref erence range: 1.32 - 3 .57 K/L. The refe rence range was not u sed to interpret this result as normal/abnor mal. # Monos (test code = 0.62 See_Comment [Autom ated message] 415) The system [employer] generated this result transmitted ref erence range: 0.30 - 0 .82 K/L. The refe rence range was not u sed to interpret this result as normal/abnor mal. # Eos (test code = 416) 0.02 See_Comment L [Au tomated message] The system [employer] generated this result transmitted ref erence range: 0.04 - 0 .54 K/L. The refe rence range was not u sed to interpret this result as normal/abnor mal. # Baso (test code = 417) 0.03 See_Comment [A utomated message] The system [employer] generated this result transmitted ref erence range: 0.01 - 0 .08 K/L. The refe rence range was not u sed to interpret this result as normal/abnor mal. Immature 0 % 0-1 Granulocytes-Relative (test code = 2801) Lab Interpretation (test Abnormal code = 72827-6) [facility] W/PLT COUNT & AUTO [id number] 07:00:00 Test Item Value Reference Range Interpretation [...] PERCENT (BEAKER) (test code = 2801) Prothrombin time/[id number] 06:50:00 Test Item Value Reference Interpretation Comments Range Protime (test code = 14.1 See_Comment [Autom ated 4750-2) message] The system which generated this result transmitted reference range : 11.9 - 14.2 seconds. The reference range was not used to interpret this result as normal/abnormal . INR (test code = 1.12 See_Comment [Automated 2104-6) message] The system which generated this result [...] valves. Lab Interpretation Normal (test code = 73617-7) [place] campusPROTHROMBIN TIME/[id number] 06:50:00 Test Item Value Reference Range Interpretation Comments PROTIME (BEAKER) 14.1 seconds 11.9-14.2 (test code = 759) INR (BEAKER) (test 1.12 See_Comment [Automat ed message] code = 370) The system [employer] generated this result transmitted ref erence range: <=5.90. The reference range was not used to int erpret this result as normal/abnormal . RECOMMENDED COUMADIN/WARFARIN INR THERAPY RANGESSTANDARD DOSE: 2.0 - 3.0 Includes: PROPHYLAXIS forvenous thrombosis, systemic embolization; TREATMENT for venous thrombosis and/or pulmonary embolus.HIGH RISK: Target INR is 2.5-3.5 for patients with mechanical heart valves.TOP-[id number] 00:00:00Ordered by an unspecified provider.[place] [facility]
[2020-09-17] MEDS ORDERED: ASPIRIN 81 MG CHEWABLE TABLET ONE (07:13)
[2020-09-17] MEDS ORDERED: CLOPIDOGREL 75 MG TABLET ONE (07:14)
[2020-09-17] MEDS ORDERED: TENECTEPLASE 50 MG/10 ML VIAL IV ONE (07:14)
[2020-09-17] MEDS ORDERED: NA CHLORIDE 0.9% 1,000 ML ONE ×2 (07:15→08:02)
--- NOTE | 2020-09-17 07:17 | EDPHYS ---
Physician Documentation [facility] Name: Moy White Age: 84 yrs Sex: Male : 1935 Arrival Date: 09/17/2020 Time: 06:36 Bed 3 Private MD: ED Physician Abelardo Benavidez HPI: 09/17 07:08 This 84 yrs old Male presents to ER via Unassigned with complaints of Chest pkl Pain > 30 y/o, Cough. 07:08 The patient or guardian reports chest pain that is located primarily in the substernal pkl area. Onset: just prior to arrival, 1.5 hour(s) ago. The pain does not radiate. Associated signs and symptoms: Pertinent positives: diaphoresis. Patient recently diagnosed with gallbladder cancer. Historical: - Allergies: 06:46 No Known Allergies; jb4 - Home Meds: 06:46 amlodipine 10 mg tab once daily [Active]; aspirin 81 mg Oral chew once daily [Active]; jb4 clonidine HCl 0.1 mg Oral tab as needed for systolic BP >180 [Active]; triamterene-hydrochlorothiazid 37.5-25 mg Oral tab once daily [Active]; - PMHx: 06:46 Hypertension; Gallbladder cancer; jb4 - Immunization history:: Adult Immunizations up to date. ROS: 07:08 Eyes: Negative for injury, pain, redness, and discharge, ENT: Negative for injury, pkl pain, and discharge, Neck: Negative for injury, pain, and swelling. 07:08 Cardiovascular: Positive for chest pain. 07:08 Respiratory: Negative for cough, shortness of breath. 07:08 Abdomen/GI: Negative for abdominal pain, nausea, vomiting, and diarrhea. 07:08 Back: Negative for acute changes. 07:08 : Negative for urinary symptoms. 07:08 MS/extremity: Negative for acute changes. 07:08 Skin: Positive for diaphoresis. 07:08 Neuro: Negative for altered mental status, loss of consciousness. Exam: 07:08 Head/Face: Normocephalic, atraumatic. Eyes: Pupils equal round and reactive to light, pkl extra-ocular motions intact. Lids and lashes normal. Conjunctiva and sclera are non-icteric and not injected. Cornea within normal limits. Periorbital areas with no swelling, redness, or edema. ENT: Nares patent. No nasal discharge, no septal abnormalities noted. Tympanic membranes are normal and external auditory canals are clear. Oropharynx with no redness, swelling, or masses, exudates, or evidence of obstruction, uvula midline. Mucous membranes moist. Neck: Trachea midline, no thyromegaly or masses palpated, and no cervical lymphadenopathy. Supple, full range of motion without nuchal rigidity, or vertebral point tenderness. No Meningismus. Chest/axilla: Normal chest wall appearance and motion. Nontender with no deformity. No lesions are appreciated. Cardiovascular: Regular rate and rhythm with a normal S1 and S2. No gallops, murmurs, or rubs. Normal PMI, no JVD. No pulse deficits. Respiratory: Lungs have equal breath sounds bilaterally, clear to auscultation and percussion. No rales, rhonchi or wheezes noted. No increased work of breathing, no retractions or nasal flaring. Abdomen/GI: Soft, non-tender, with normal bowel sounds. No distension or tympany. No guarding or rebound. No evidence of tenderness throughout. Back: No spinal tenderness. No costovertebral tenderness. Full range of motion. 07:08 Skin: Appearance: diaphoresis is noted. 07:08 Neuro: Orientation: is normal, Mentation: is normal, Cranial nerves: grossly normal, Motor: is normal. Vital Signs: 06:46 BP 95 / 89; Pulse 73; Resp 32; Pulse Ox 95% on R/A; Weight 72.57 kg (R); Height 5 ft. 2 jb4 in. (157.48 cm); Pain 10/10; 07:10 BP 111 / 87; Pulse 72; Resp 36; Pulse Ox 100% on 2 lpm NC; jb4 07:25 BP 110 / 83; Pulse 80; Resp 20 S; Pulse Ox 100% on 2 lpm NC; aa5 07:30 BP 99 / 83; Pulse 73; Resp 24 S; Pulse Ox 100% on 2 lpm NC; aa5 07:45 BP 103 / 93; Pulse 77; Resp 22 S; Pulse Ox 100% on 2 lpm NC; aa5 06:46 Body Mass Index 29.26 (72.57 kg, 157.48 cm) jb4 MDM: 07:07 Patient medically screened. pkl 07:08 Data reviewed: vital signs, nurses notes. ED course: Talked to Dr. Kruger, accepted pkl transfer to [facility]. 09/17 06:56 Order name: Basic Metabolic Panel; Complete Time: 19:05 kb 09/17 06:56 Order name: CBC with Diff; Complete Time: 07:56 kb 09/17 06:56 Order name: LFT's; Complete Time: 19:05 kb 09/17 06:56 Order name: Magnesium; Complete Time: 19:05 kb 09/17 06:56 Order name: NT PRO-BNP; Complete Time: 19:05 kb 09/17 06:56 Order name: PT-INR; Complete Time: 07:56 kb 09/17 06:56 Order name: Troponin (emerg Dept Use Only); Complete Time: 19:05 kb 09/17 06:56 Order name: XRAY Chest (1 view); Complete Time: 19:05 kb 09/17 06:56 Order name: EKG; Complete Time: 06:57 kb 09/17 06:56 Order name: Cardiac monitoring; Complete Time: 07:14 kb 09/17 06:56 Order name: EKG - Nurse/Tech; Complete Time: 07:14 kb 09/17 06:56 Order name: IV Saline Lock; Complete Time: 07:14 kb 09/17 06:56 Order name: Labs collected and sent; Complete Time: 07:14 kb 09/17 06:56 Order name: O2 Per Protocol; Complete Time: 07:14 kb 09/17 06:56 Order name: O2 Sat Monitoring; Complete Time: 07:14 kb Administered Medications: 06:55 Drug: Aspirin Chewable Tablet 324 mg Route: PO; jb4 07:30 Follow up: Response: No adverse reaction aa5 06:55 Drug: PlaVIX (clopidogrel) 600 mg Route: PO; jb4 07:30 Follow up: Response: No adverse reaction aa5 06:55 Drug: NS 0.9% 1000 ml Route: IV; Rate: 125 ml/hr; Site: right antecubital; jb4 07:30 Follow up: IV Status: Infusion continued aa5 07:00 Drug: Tenecteplase 40 mg {Co-Signature: iw (Kierra Real RN).} Route: IV; Rate: jb4 bolus; Site: right antecubital; 07:30 Follow up: Response: No adverse reaction aa5 07:03 Drug: morphine 2 mg Route: IVP; Site: right antecubital; jb4 07:30 Follow up: Response: No adverse reaction; Pain is unchanged, physician notified aa5 07:04 Drug: Zofran (Ondansetron) 4 mg Route: IVP; Site: right antecubital; jb4 07:30 Follow up: Response: No adverse reaction aa5 07:18 Drug: morphine 2 mg Route: IVP; Site: right antecubital; jb4 07:30 Follow up: Response: No adverse reaction; Pain is unchanged, physician notified aa5 07:43 Drug: NS 0.9% 500 ml Route: IV; Rate: bolus; Site: right antecubital; aa5 07:50 Follow up: IV Status: Infusion continued upon transfer aa5 07:44 Not Given (Physician Discretion): NS 0.9% 500 ml IV at bolus once aa5 07:44 Drug: fentaNYL (PF) 50 mcg Route: IVP; Site: right antecubital; aa5 07:50 Follow up: Response: No adverse reaction aa5 07:44 Drug: Zofran (Ondansetron) 4 mg Route: IVP; Site: right antecubital; aa5 07:50 Follow up: Response: No adverse reaction aa5 07:50 CANCELLED (Physician Discretion): Pepcid (famotidine) 20 mg IVP once; dilute with 10 mL aa5 0.9% NaCl; give over 2 minutes Disposition: 07:08 Critical Care:. pkl Disposition Summary: 09/17/20 07:38 Transfer Ordered Transfer Location: [facility](09/17/20 07:38) pkl Reason: Higher level of care(09/17/20 07:38) pkl Condition: Stable(09/17/20 07:38) pkl Problem: new(09/17/20 07:38) pkl Symptoms: are unchanged(09/17/20 07:38) pkl Accepting Physician: Dr. Coombs(09/17/20 07:53) aa5 Diagnosis - Acute M. I./ STEMI pkl Forms: - Medication Reconciliation Form pkl - SBAR form pkl Critical care time excluding procedures: 07:08 Critical care time: Consultation: 5 minutes. Total time: 5 minutes pkl Signatures: Dispatcher [employer] EDMS Elizabeth Kerr, METAL ENGRAVER-C METAL ENGRAVER-Ckb Abelardo Benavidez MD MD cha Lam, Pin, MD MD pkl Aleah Vu, RN RN aa5 Jose Vidal RN RN jb4 Kierra Real RN iw Corrections: (The following items were deleted from the chart) 07:36 07:17 Dr. Kruger pkl pkl 07:36 07:17 [facility] pkl pkl 07:36 07:17 Higher level of care pkl pkl 07:36 07:17 Stable pkl pkl 07:36 07:17 new pkl pkl 07:36 07:17 are unchanged pkl pkl 07:36 07:17 Acute M. I./ STEMI pkl pkl 07:50 07:39 Pepcid (famotidine) 20 mg IVP once; dilute with 10 mL 0.9% NaCl; give over 2 aa5 minutes ordered. xiang 07:53 07:38 Dr. Coombs pkl aa5
--- NOTE | 2020-09-17 07:17 | ER ---
Nurse's Notes [facility] Name: Moy White Age: 84 yrs Sex: Male : 1935 Arrival Date: 09/17/2020 Time: 06:36 Bed 3 Private MD: Diagnosis: Acute M. I./ STEMI Presentation: 09/17 06:46 Chief complaint: Patient's son or daughter states: He started having severe chest pain jb4 about 90-120 minutes. He is weak and he is pale and sweaty. 06:46 Coronavirus screen: At this time, the client does not indicate any symptoms associated jb4 with coronavirus-19. Ebola Screen: No symptoms or risks identified at this time. Initial Sepsis Screen: Does the patient meet any 2 criteria? RR > 20 per min. Does the patient have a suspected source of infection? No. Patient's initial sepsis screen is negative. Risk Assessment: Do you want to hurt yourself or someone else? Patient reports no desire to harm self or others. Onset of symptoms was September 17, 2020. Transition of care: patient was not received from another setting of care. 06:46 Method Of Arrival: Wheelchair jb4 06:46 Acuity: MARIAN 1 jb4 Historical: - Allergies: 06:46 No Known Allergies; jb4 - Home Meds: 06:46 amlodipine 10 mg tab once daily [Active]; aspirin 81 mg Oral chew once daily [Active]; jb4 clonidine HCl 0.1 mg Oral tab as needed for systolic BP >180 [Active]; triamterene-hydrochlorothiazid 37.5-25 mg Oral tab once daily [Active]; - PMHx: 06:46 Hypertension; Gallbladder cancer; jb4 - Immunization history:: Adult Immunizations up to date. Assessment: 06:46 Tenecteplase (TNKase) screening: Warnings: Serious advanced illness such as cancer: jb4 Yes. Over 75 years of age: Yes. General: Appears distressed, uncomfortable, Behavior is cooperative, anxious. Pain: Complains of pain in chest Pain does not radiate. Pain currently is 10 out of 10 on a pain scale. Quality of pain is described as pressure, Pain began 2 hours ago. Is continuous. Neuro: Level of Consciousness is awake, alert, obeys commands, Oriented to person, place, time, situation. Cardiovascular: skin is pale, cool, and diaphoretic.. Chest pain is described as severe, quality is pressure. Respiratory: Airway is patent Respiratory effort is even, labored, Respiratory pattern is symmetrical, tachypnea. GI: No signs and/or symptoms were reported involving the gastrointestinal system. : No signs and/or symptoms were reported regarding the genitourinary system. EENT: No signs and/or symptoms were reported regarding the EENT system. Derm: Skin is intact, Skin is diaphoretic, Skin is pale, Skin temperature is cool. Musculoskeletal: Circulation, motion, and sensation intact. Range of motion: intact in all extremities. 07:20 Reassessment: Pt remains diaphoretic, pale, and uncomfortable. Reports that pain has jb4 not gotten any better with morphine. respirations remain even, labored, and tachypneic. Report given to ROBERT Longoria, and ROBERT Bullard. 07:30 Reassessment: Report received from Jose Albright RN. aa5 07:30 Reassessment: Patient states symptoms have not improved. General: Appears distressed, aa5 uncomfortable, Behavior is cooperative. Pain: Complains of pain in chest Pain currently is 10 out of 10 on a pain scale. Neuro: Level of Consciousness is awake, alert, obeys commands, Oriented to person, place, time, situation. Respiratory: Airway is patent Respiratory effort is even, unlabored, Respiratory pattern is regular, symmetrical. Derm: Skin is diaphoretic, Skin is pale, Skin temperature is cool. 07:30 Reassessment: IV: 22 G to L FA and 18G to R AC noted. . aa5 07:48 Reassessment: Pt resting in bed with eyes closed, appears more comfortable than aa5 previous assessment, easy to arouse to verbal stimuli, respirations even and unlabored, skin remains diaphoretic. . 07:50 Reassessment: Life flight at bedside. . aa5 Vital Signs: 06:46 BP 95 / 89; Pulse 73; Resp 32; Pulse Ox 95% on R/A; Weight 72.57 kg (R); Height 5 ft. 2 jb4 in. (157.48 cm); Pain 10/10; 07:10 BP 111 / 87; Pulse 72; Resp 36; Pulse Ox 100% on 2 lpm NC; jb4 07:25 BP 110 / 83; Pulse 80; Resp 20 S; Pulse Ox 100% on 2 lpm NC; aa5 07:30 BP 99 / 83; Pulse 73; Resp 24 S; Pulse Ox 100% on 2 lpm NC; aa5 07:45 BP 103 / 93; Pulse 77; Resp 22 S; Pulse Ox 100% on 2 lpm NC; aa5 06:46 Body Mass Index 29.26 (72.57 kg, 157.48 cm) jb4 ED Course: 06:36 Patient arrived in ED. bp1 06:46 Arm band placed on right wrist. jb4 06:50 Inserted saline lock: 22 gauge in left forearm, using aseptic technique. Missed ds4 attempt(s): 18 gauge in left forearm. Bleeding controlled, band aid applied, catheter tip intact. 06:58 initiated a transfer with Jono Presley from the [facility]. eb 07:07 Mt Whelan MD is Attending Physician. pkl 07:15 Jose Vidal, RN is Primary Nurse. jb4 07:18 Triage completed. jb4 07:20 per Jono Sherwood they do not want the patient to wait in the entry level lab technician due to his eb history/ they do not have staff for their CCU and their AOC has declined the patient in transfer. 07:21 transfer initiated with Kristen from the [facility]. eb 07:30 Patient has correct armband on for positive identification. Bed in low position. Pt's aa5 daughter at bedside. 07:30 no experience on. Pulse ox on. NIBP on. aa5 07:30 No provider procedures requiring assistance completed. Oxygen administration via nasal aa5 cannula. 07:[address] to Dr. Benavidez by Hannah Kimble Rn/ patient has been eb accepted to [facility] Taproom Attendant/ Dr. Coombs has accepted the patient in transfer/ report to be called to [phone]. 07:36 Attending Physician role handed off by Mt Whelan MD xiang 07:36 Abelardo Benavidez MD is Attending Physician. xiang 07:37 XRAY Chest (1 view) In Process Unspecified. EDMS 07:50 Patient transferred, IV remains in place. aa5 Administered Medications: 06:55 Drug: Aspirin Chewable Tablet 324 mg Route: PO; jb4 07:30 Follow up: Response: No adverse reaction aa5 06:55 Drug: PlaVIX (clopidogrel) 600 mg Route: PO; jb4 07:30 Follow up: Response: No adverse reaction aa5 06:55 Drug: NS 0.9% 1000 ml Route: IV; Rate: 125 ml/hr; Site: right antecubital; jb4 07:30 Follow up: IV Status: Infusion continued aa5 07:00 Drug: Tenecteplase 40 mg {Co-Signature: iw (Kierra Real RN).} Route: IV; Rate: jb4 bolus; Site: right antecubital; 07:30 Follow up: Response: No adverse reaction aa5 07:03 Drug: morphine 2 mg Route: IVP; Site: right antecubital; jb4 07:30 Follow up: Response: No adverse reaction; Pain is unchanged, physician notified aa5 07:04 Drug: Zofran (Ondansetron) 4 mg Route: IVP; Site: right antecubital; jb4 07:30 Follow up: Response: No adverse reaction aa5 07:18 Drug: morphine 2 mg Route: IVP; Site: right antecubital; jb4 07:30 Follow up: Response: No adverse reaction; Pain is unchanged, physician notified aa5 07:43 Drug: NS 0.9% 500 ml Route: IV; Rate: bolus; Site: right antecubital; aa5 07:50 Follow up: IV Status: Infusion continued upon transfer aa5 07:44 Not Given (Physician Discretion): NS 0.9% 500 ml IV at bolus once aa5 07:44 Drug: fentaNYL (PF) 50 mcg Route: IVP; Site: right antecubital; aa5 07:50 Follow up: Response: No adverse reaction aa5 07:44 Drug: Zofran (Ondansetron) 4 mg Route: IVP; Site: right antecubital; aa5 07:50 Follow up: Response: No adverse reaction aa5 07:50 CANCELLED (Physician Discretion): Pepcid (famotidine) 20 mg IVP once; dilute with 10 mL aa5 0.9% NaCl; give over 2 minutes Outcome: 07:17 ER care complete, transfer ordered by . pkl 07:38 ER care complete, transfer ordered by pkl 07:50 Transferred by helicopter to [facility], Transfer form completed. Note: aa5 Report given to life flight 07:53 Patient left the ED. aa5 Signatures: Dispatcher [employer] EDAbelardo Alcantara MD MD cha Lam, Pin, MD MD pkl Calderon, Audri, RN RN aa5 Warner Putnam ds4 Jose Vidal RN RN jb4 Twyla Goldberg Brittany bp1 Irene Williams RN iw
[2020-09-17] MEDS ORDERED: MORPHINE 2 MG/ML SYR ONE ×2 (07:24→07:38)
[2020-09-17] MEDS ORDERED: ONDANSETRON 4 MG/2 ML VIAL ONE ×2 (07:24→08:02)
[2020-09-17 07:38] LABS: Absolute Lymphocytes (CBC) 2.4 K/uL (0.7-4.9); Basophils % 0.3 % (0-1.3); Hematocrit 43.2 % (39.6-49.0); Lymphocytes % 20.5 % (15.3-44.8); MPV 7.9 fL (7.6-11.3); RBC Red Blood Cell Count 5.03 M/uL (4.33-5.43)
[2020-09-17 07:44] LABS: Protime INR 1.14
[2020-09-17 07:56] LABS: ALT/SGPT 19 U/L (12-78); AST/SGOT 13 U/L (15-37); Albumin 3.6 g/dL (3.4-5.0); Alkaline Phosphatase 102 U/L (45-117); BUN Blood Urea Nitrogen 21 mg/dL (7-18); Bicarbonate 23 mmol/L (21-32); Bilirubin Direct 0.3 mg/dL (0-0.2); Bilirubin Total 0.9 mg/dL (0.2-1.0); Glucose Level 244 mg/dL (74-106); Magnesium 2.4 mg/dL (1.8-2.4); NT PRO-BNP 1343 pg/mL (<450); Potassium 4.1 mmol/L (3.5-5.1); Protein, Total 7.8 g/dL (6.4-8.2); Sodium Level 139 mmol/L (136-145); Troponin (Emerg Dept Use Only) < 0.02 ng/mL (0.0-0.045)
[2020-09-17] MEDS ORDERED: FENTANYL CITR 100 MCG/2 ML ONE (08:02)
[2020-09-17 08:03] VITALS: O2SAT 100
[2020-09-17 08:07] VITALS: BP 110/83
--- NOTE | 2020-09-17 08:10 | RAD REPORT ---
EXAM DESCRIPTION: RAD - Chest Single View - 09/17/2020 7:37 am CLINICAL HISTORY: CHEST PAIN COMPARISON: Chest Single View dated 09/16/2020; Chest Single View dated 07/10/2020; Chest Single View d ated 05/04/2020; Chest Single View dated 09/23/2019 FINDINGS: No evidence of edema or pneumonia. Cardiomegaly. No acute osseous abnormality. No signifi cant pleural effusions or pneumothorax. IMPRESSION: No acute cardiopulmonary disease.
== END 2020-09-17 07:53 | disposition short-term general hospital (02) ==
LOC: ER 06:35
DX: I21.3 ST elevation (STEMI) myocardial infarction of unspecified site (principal); I10 Essential (primary) hypertension; Z85.09 Personal history of malignant neoplasm of other digestive organs; Z79.82 Long term (current) use of aspirin
CPT/HCPCS: 96361; 92977; 93005; 85025; 80048; 36415; 83735; 85610; 80076; 84484; 83880; 71045; 96375; 96374; 99291; J3101; J3010; J2270 ×2; J7040; J7030; J2405 ×2